=== PATIENT | female | born 1940 | race Caucasian/White ===

== ENCOUNTER 2017-01-29 11:32 | Inpatient (IN) | payer OTHER ==
[~2017-01-29] VITALS: Ht 154.9 cm; Wt 45.4 kg
--- NOTE | 2017-01-29 11:38 | NUR ---
PER FAMILY SOB AND WEAK, PER FAMILY PER PMD BETTER TO COME TO ED DENIES CO SOB AT REST IN TRIAGE PER SON "FLUID AROUND HEART"
--- NOTE | 2017-01-29 11:51 | ED DYSPNEA/ASTHMA COMPLAINT ---
See Addendum History of Present Illness General Chief Complaint: Dyspnea (COPD, CHF, Other) Stated Complaint: SOB,WEAKNESS Source: patient, old records Exam Limitations: no limitations Vital Signs & Intake/Output Vital Signs & Intake/Output Vital Signs Date Time Temp Pulse Resp B/P B/P Pulse O2 O2 Flow FiO2 Mean Ox Delivery Rate 01/29 1404 98.2 100 20 138/72 97 Nasal 2.5L Cannula 01/29 1309 98 Room Air 01/29 1238 89 01/29 1140 98.4 113 26 104/59 90 Room Air Allergies Coded Allergies: shellfish derived (Intermediate, SWELLING 01/29/17) Sulfa (Sulfonamide Antibiotics) (HIVES 01/29/17) iodamide (UNKNOWN 01/29/17) Reconcile Medications Amlodipine Besylate 2.5 MG TABLET 1 TAB PO 1700 CIRCULATION (Reported) Triage Note: PER FAMILY SOB AND WEAK, PER FAMILY PER PMD BETTER TO COME TO ED DENIES CO SOB AT REST IN TRIAGE Triage Nurses Notes Reviewed? yes Onset: Gradual Duration: week(s): (1), constant Timing: recent history Severity: mild, moderate Activities at Onset: activity Associated Symptoms: cough, weakness HPI: 76-year-old female with history of pulmonary fibrosis dementia presents to ER for evaluation with her family complaining of briskly worsening shortness of breath and weakness for the past one week. She is not use oxygen at home and her son who lives with her states this is new. The patient offers no complaints she has a history of dementia however no change in her mental status per family no fever no chills no leg swelling. No modifying factors or associated symptoms otherwise. (LYSSA VORA) Past History Travel History Traveled to [place] past 21 day No Medical History Any Pertinent Medical History? see below for history Neurological: dementia EENT: NONE Cardiovascular: NONE Respiratory: NONE Gastrointestinal: NONE Hepatic: NONE Renal: NONE Musculoskeletal: NONE Psychiatric: NONE Endocrine: NONE History of MRSA: No History of VRE: No History of CDIFF: No Pneumonia Vaccine: 06/13/12 Surgical History Surgical History: non-contributory Psychosocial History Who do you live with Patient/Self Services at Home None What is your primary language Colombian Tobacco Use: Never used Family History Hx Contributory? No (LYSSA VORA) Review of Systems Review of Systems Constitutional: Reports: see HPI. All Other Systems: Reviewed and Negative Comments Review of systems: See HPI, All other systems negative. Constitutional, no chills no fever, no malaise HEENT: No visual changes no sore throat no congestion, Cardiovascular: No chest pain , no palpitation , no orthopnea Skin: no rashes, no change in skin Respiratory: dyspnea no cough no sputum no hemoptysis GI: No nausea no vomiting, no diarrhea, no bloating/constipation : No dysuria Muscle skeletal: No joint pain, no joint swelling, no back pain, no neck pain, Neurologic: No numbness no headache Psych: No stress Heme/endocrine: No bruising no bleeding Immunology: No lymphadenopathy (LYSSA VORA) Physical Exam Physical Exam General Appearance: well developed/nourished, alert, awake Respiratory: rhonchi Comments: Well-developed well-nourished person in no acute distress HEENT: Normal EENT exam; PERRL, EOMI, HEAD is atraumatic. moist mucous membranes. Neck: Supple, no lymphadenopathy, normal range of motion without pain or tenderness Back: Nontender, no CVA tenderness. Full range of motion Cardiovascular: Regular rate and rhythms no murmurs rubs Respiratory: Chest nontender.There were no bony deformities, no asymmetry. No respiratory distress. Patient speaking in full complete sentences. Lung sounds are rhonchorous wheezing Abdomen: Soft, nontender nondistended, no appreciable organomegaly. Normal bowel sounds. No rebound/guarding, No appreciable enlargement of the abdominal aorta, No ascites. Extremity: No edema, full range of motion of extremities Neuro: Alert oriented x2 baseline per son, motor sensory normal, There were no obvious focal neurologic abnormalities. Skin: No appreciable rash on exposed skin, skin is warm and dry. Psych: Mood and affect is normal, memory and judgment is normal. Core Measures ACS in differential dx? Yes Severe Sepsis Present: No Septic Shock Present: No (LYSSA VORA) Progress Differential Diagnosis: asthma, AMI, bronchitis, costochondritis, CHF, COPD, musculoskeletal pain, pericarditis, pulmonary embolism, pneumonia, pneumothorax, unstable angina Plan of Care: Orders Procedure Date/time Status Heart Healthy Diet 01/30 B Active Heart Healthy Diet 01/29 D Complete Pathway - chart 01/29 153 Active House Staff 01/29 153 Active Patient Data 01/29 153 Active Code Status 01/29 1533 Active Admit to inpatient 01/29 1459 Active ECHOCARDIOGRAM 01/29 1457 Active Hartmann, Insertion/Removal/Asses 01/29 1435 Active CULTURE,URINE 01/29 1435 Active SWALLOW EVALUATION 01/29 1418 Active Patient Data 01/29 1402 Active Patient Data 01/29 1401 Active Intake & Output 01/29 1309 Active Telemetry/Test Grader 01/29 1150 Active TROPONIN LEVEL 01/29 1150 Complete PARTIAL THROMBOPLASTIN TIME 01/29 1150 Complete PROTHROMBIN TIME 01/29 1150 Complete COMPREHENSIVE METABOLIC PANEL 01/29 1150 Complete CBC WITHOUT DIFFERENTIAL 01/29 1150 Complete B-TYPE NATRIURETIC PEP (BNP) 01/29 1150 Complete EKG 01/29 1133 Active SWALLOW EVALUATION 01/29 UNK Active Evaluate Swallowing 01/29 UNK Complete PT Evaluate & Treat 01/29 UNK Active Occupational Tx Eval & Treat 01/29 UNK Active VTE Mechanical Prophylaxis 01/29 UNK Active Telemetry/Test Grader 01/29 UNK Active Current Medications Sig/Vanessa Start time Last Medication Dose Stop Time Status Admin Amlodipine Besylate 2.5 MG 1700 01/29 1700 AC (Norvasc) Acetaminophen 650 MG Q6P PRN 01/29 1545 AC (Tylenol) Ibuprofen 600 MG Q6P PRN 01/29 1545 AC (Motrin) Oxycodone/ 2 TAB Q6P PRN 01/29 1545 AC Acetaminophen (Percocet) Enoxaparin Sodium 40 MG DAILY@1500 01/29 1531 AC (Lovenox) Laboratory Tests 01/29/17 1234: Anion Gap 11, Estimated GFR > 60, BUN/Creatinine Ratio 27.8 H, Glucose 167 H, Calcium 8.1 L, Total Bilirubin 1.2, AST 36, ALT 39, Alkaline Phosphatase 66, Troponin I 0.05, Tpa-S-Vqyvyyqgxin Pept 3330 H, Total Protein 5.7 L, Albumin 2.9 L, Globulin 2.8, Albumin/Globulin Ratio 1.0 L, PT 11.7, INR 1.12, APTT 28, CBC w Diff MAN DIFF ORDERED, RBC 2.88 L, MCV 114.3 H, MCH 40.3 H, RDW 18.0 H , MPV 9.8, Gran % 91.3 H, Lymphocytes % 6.4 L, Monocytes % 1.8, Eosinophils % 0.5, Basophils % 0 L, Absolute Granulocytes 13.3 H, Segmented Neutrophils 58, Band Neutrophils 15 H, Absolute Lymphocytes 0.9 L, Lymphocytes 11 L, Monocytes 2, Absolute Monocytes 0.3, Eosinophils 2, Absolute Eosinophils 0.1, Absolute Basophils 0, Metamyelocytes 6 H, Myelocytes 6 H, Nucleated RBCs 3 H, Platelet Estimate ADEQUATE, Polychromasia 1+, Poikilocytosis 2+, Anisocytosis 1+ , Macrocytic Cells 2+, PUBS MCHC 35.2 Microbiology 01/29 1435 URINE ROUT: Urine Culture - ORD DuoNeb CAT scan ordered old records reviewed including x-ray from01/27 IMPRESSION: Chronic, severe interstitial lung disease appears worse compared to 03/16/2013. It is difficult to exclude interstitial edema superimposed on the chronic disease. However, there is no pleural effusion. Since there are more prominent reticulonodular opacities in both lungs, consider chest CT to further evaluate the lung parenchyma and airways. If patient has cough and fever, then findings could represent infectious bronchitis/bronchiolitis superimposed on chronic interstitial disease. (NAILA BYRD,LYSSA) Diagnostic Imaging: Viewed by Me: CT Scan. Discussed w/RAD: CT Scan. Radiology Impression: PATIENT: MARIA ELENA NG PRESENT AGE: 76 PATIENT ACCOUNT NO: [id number] : 38 LOCATION: [facility] ORDERING PHYSICIAN: LYSSA BYRD SERVICE DATE: 01/29/17-122 EXAM TYPE: CAT - CT CHEST WO IV CONTRAST EXAMINATION: CT CHEST WITHOUT CONTRAST CLINICAL INFORMATION: Dyspnea. Pneumonia. COMPARISON: January 27, 2017. TECHNIQUE: Contiguous axial thin section helical images of the chest were performed without contrast. The data set was reformatted in the coronal and sagittal planes and reviewed on an independent workstation. DLP: 154 mGy-cm. FINDINGS: The heart is of normal size. There is no pericardial effusion. There is neither mediastinal, hilar nor axillary lymphadenopathy. There are no chest wall masses. Review of lung windows demonstrates that there are neither pleural effusions nor pneumothoraces. There is diffuse interlobular septal thickening. There is mild lower lobe air trapping. There are no pulmonary parenchymal nodules. Images of the upper abdomen demonstrate that the liver is of normal size and attenuation without focal lesions. Normal adrenal glands are identified. Bone windows: Neither sclerotic nor lytic bone lesions are identified. There is a T12 compression fracture. This is age indeterminant, but likely chronic. IMPRESSION: Interlobular septal thickening. This is likely partially chronic, though I suspect a component of vascular congestion. No consolidations. DICTATED BY: MARIO MILLAN MD DATE/TIME DICTATED:01/29/171403 BODY FORMER:[place] DATE/TIME TRANSCRIBED:01/29/171403 CONFIDENTIAL, DO NOT COPY WITHOUT APPROPRIATE AUTHORIZATION. <Electronically signed in Other Vendor System> SIGNED BY: MARIO MILLAN MD 01/29/17 1412 Initial ED EKG: STACH AT 100, PACS, LAD, PROMINENT T WAVES, NO ACUTE ST SEG CHANGES Prior EKG: unchanged (03/2013) (LYSSA VORA) Departure Departure Time of Disposition: 1422 Disposition: STILL A PATIENT Condition: Stable Clinical Impression Primary Impression: CHF exacerbation Referrals: MARCELL HYMAN MD (PCP/Family) Departure Forms: Customer Survey General Discharge Information Admission Note Spoke With: JUSTO ROCHA MD Documentation of Exam: Documentation of any treatments & extenuating circumstances including Concerns Regarding Discharge (functional status, medication knowledge or non-compliance, living conditions, etc.) that warrant an admission rather than observation: iv diuresis, cardio pulm consult, premature discharge would be medically harmful (LYSSA VORA) PA/STAFF COMBAT INFORMATION CENTER OFFICER Co-Sign Statement Statement: ED Attending supervision documentation- [X] I saw and evaluated the patient. I have also reviewed all the pertinent lab results and diagnostic results. I agree with the findings and the plan of care as documented in the PA's/STAFF COMBAT INFORMATION CENTER OFFICER's documentation. [] I have reviewed the ED Record and agree with the PA's/STAFF COMBAT INFORMATION CENTER OFFICER's documentation. [] Additions or exceptions (if any) to the PAs/STAFF COMBAT INFORMATION CENTER OFFICER's note and plan are summarized below: [] (NICOLE MCRAE,TIM [place]) Critical Care Note Critical Care Note Critical Care Time: non-applicable (LYSSA VORA)
--- NOTE | 2017-01-29 12:12 | NUR ---
PT INCONT OF STOOL, BARRY CARE PROVIDED AND BRIEF REMOVED, PT APPEARS TO HAVE A RASH ACROSS LOWER BACK AND BOTH BUTTOCKS, PER FAMILY SHE HAS BEEN WORKED UP FOR SAME RASH AND WAS RECENTLY ON A PREDNISON TAPER, FAMILY STATING MD BELIEVES THE RASH IS AUTOIMMUNE IN NATURE.
[2017-01-29 12:44] LABS: ABSOLUTE BASOPHIL COUNT 0 /CUMM (0.0-0.2); ABSOLUTE EOSINOPHIL COUNT 0.1 /CUMM (0.0-0.7); ABSOLUTE GRANULOCYTE CT 13.3 /CUMM (1.4-6.5); ABSOLUTE LYMPH COUNT 0.9 /CUMM (1.2-3.4); ABSOLUTE MONOCYTE COUNT 0.3 /CUMM (0.10-0.60); BASOPHIL % 0 % (0.0-2.0); EOSINOPHIL % 0.5 % (0-5); GRANULOCYTE % 91.3 % (42.2-75.2); HEMATOCRIT 32.9 % (37-47); MEAN CORPUSCULAR HGB 40.3 PG (27.0-31.0); MEAN CORPUSCULAR HGB CONC 35.2 G/DL (33.0-37.0); MEAN CORPUSCULAR VOLUME 114.3 FL (81.0-99.0); MEAN PLATELET VOLUME 9.8 FL (7.4-10.4); PLATELET COUNT 200 /CUMM (130-400); RED BLOOD CELL CT 2.88 /CUMM (4.20-5.40); WHITE BLOOD CELL COUNT 14.6 /CUMM (4.8-10.8)
--- NOTE | 2017-01-29 12:51 | NUR ---
RT AT BEDSIDE FOR TREATMENT, IV ESTABLISHED, PT RESTING COMFORTABLY, DENIES ANY NEEDS AT THIS TIME, PLACED ON CARDIAC, 02 AND CYCLING BP CUFF
[2017-01-29 12:54] LABS: PT 11.7 SEC (9.4-12.5); PTT 28 SEC (25-37)
[2017-01-29] MEDS ORDERED: AMLODIPINE BES2.5 M1 PO (13:00)
--- NOTE | 2017-01-29 13:11 | NUR ---
PT TO CT AT THIS TIME
--- NOTE | 2017-01-29 13:52 | NUR ---
LASIX HELD DUE TO SULFA ALLERGY
--- NOTE | 2017-01-29 13:57 | NUR ---
DR ALCARAZ TO BEDSIDE TO JESSICA, PT ATTEMPTED TO VOID ON BEDPAN WITH NO SUCCESS, CLEAN AND DRY LINENS PLACED UNDER PATIENT AND BARRY CARE PROVIDED.
--- NOTE | 2017-01-29 14:01 | History & Physical ---
VASU MCRAE,SIRI 01/29/17 1400: General Information and HPI History of Present Illness: 76 year-old female with a PMH significant for HTN, ILD, RA not on chronic prednisone, and dementia who presents with progressively worsening shortness of breath for the past week. Per the family at bedside, patient never complains of anything but she was noted to have difficulty breathing. Patient was seen by her PCP Dr. Hyman 2 days ago at which point CXR and BNP were checked. Today the son noticed that the patient's breathing looks worse today and BNP came back elevated over 3000 with a concerning CTX per Dr. Hyman. The son chris brought her into ED for further evaluation. Patient used to see a communications equipment supervisor Dr. Delgado when she was young for ACS workup but not since then. Currntly she does not see any physicians besides Dr. Hyman. Patient lives at home with her son and [id number]. She uses a walker to ambulate. Denies any substance/EtOH use. On ROS patient has no chest pain, cough, palpitations, n/v/c/d. The family thinks that patient may have some abdominal pain which patient denies at the time of interview. DNR/DNI. Allergies/Medications Allergies: Coded Allergies: shellfish derived (Intermediate, SWELLING 01/29/17) Sulfa (Sulfonamide Antibiotics) (HIVES 01/29/17) iodamide (UNKNOWN 01/29/17) Home Med list Amlodipine Besylate 2.5 MG TABLET 1 TAB PO 1700 CIRCULATION (Reported) Past History Travel History Traveled to [place] past 21 day No Medical History Neurological: dementia EENT: NONE Cardiovascular: NONE Respiratory: NONE Gastrointestinal: NONE Hepatic: NONE Renal: NONE Musculoskeletal: NONE Psychiatric: NONE Endocrine: NONE History of MRSA: No History of VRE: No History of CDIFF: No Pneumonia Vaccine: 06/13/12 Surgical History Surgical History: non-contributory Past Family/Social History Psychosocial History Where do you live? Home Who Do You Live With? child Services at Home: None Review of Systems Review of Systems Constitutional: Reports: see HPI. Exam & Diagnostic Data Last 24 Hrs of Vital Signs/I&O Vital Signs Date Time Temp Pulse Resp B/P B/P Pulse O2 O2 Flow FiO2 Mean Ox Delivery Rate 01/29 1404 98.2 100 20 138/72 97 Nasal 2.5L Cannula 01/29 1309 98 Room Air 01/29 1238 89 01/29 1140 98.4 113 26 104/59 90 Room Air Intake & Output 01/29 1600 01/29 0800 01/29 0000 Intake Total 45 Output Total Balance 45 Intake, Oral 45 Patient 45.359 kg Weight Physical Exam General Appearance Alert, Cooperative, No Acute Distress Skin rash in the back Skin Temp/Moisture Exam: Warm/Dry Sepsis Skin Exam (color): Normal for Ethnicity HEENT Atraumatic, PERRLA, EOMI, Dry mucous membrane Neck Supple, No JVD Cardiovascular Regular Rate, Normal S1, Normal S2, Systolic murmur at aortic Lungs Diffuse rhonchi Abdomen Normal Bowel Sounds, Soft, No Tenderness Neurological Normal Tone, Sensation Intact, Cranial Nerves 3-12 NL Extremities No Clubbing, No Cyanosis, No Edema, Normal Pulses, No Tenderness/ Swelling Vascular Normal Pulses, Pulses Symmetrical Last 24 Hrs of Labs/Carlos: Laboratory Tests 01/29/17 1234: Anion Gap 11, Estimated GFR > 60, BUN/Creatinine Ratio 27.8 H, Glucose 167 H, Calcium 8.1 L, Total Bilirubin 1.2, AST 36, ALT 39, Alkaline Phosphatase 66, Troponin I 0.05, Vmg-G-Lhhwaxdqyhn Pept 3330 H, Total Protein 5.7 L, Albumin 2.9 L, Globulin 2.8, Albumin/Globulin Ratio 1.0 L, PT 11.7, INR 1.12, APTT 28, CBC w Diff MAN DIFF ORDERED, RBC 2.88 L, MCV 114.3 H, MCH 40.3 H, RDW 18.0 H , MPV 9.8, Gran % 91.3 H, Lymphocytes % 6.4 L, Monocytes % 1.8, Eosinophils % 0.5, Basophils % 0 L, Absolute Granulocytes 13.3 H, Segmented Neutrophils 58, Band Neutrophils 15 H, Absolute Lymphocytes 0.9 L, Lymphocytes 11 L, Monocytes 2, Absolute Monocytes 0.3, Eosinophils 2, Absolute Eosinophils 0.1, Absolute Basophils 0, Metamyelocytes 6 H, Myelocytes 6 H, Nucleated RBCs 3 H, Platelet Estimate ADEQUATE, Polychromasia 1+, Poikilocytosis 2+, Anisocytosis 1+ , Macrocytic Cells 2+, PUBS MCHC 35.2 Microbiology 01/29 1435 URINE ROUT: Urine Culture - ORD Assessment/Plan Assessment: 76 year-old female with a PMH significant for HTN, ILD, RA not on chronic prednisone, dementia and questionable sarcoidosis who presents with progressively worsening shortness of breath for the past week concerning for new onset CHF vs. ILD. # Acute hypoxic resp failure Patient desatting in high 80s upon admission, requiring oxygen supplement. Most likely 2/2 new onset CHF vs. worsening interstitial lung disease. Patient received one dose of IV Lasix 40mg in ED. * Admit to telemetery unit for close monitoring * Vitals per protocol * TRC neb tx and oxygen support as needed * Rule out ACS with serial trop/EKGs * Appreciate cardiology and pulmonlogy input * Follow CT chest - vascular congestion, no signs of pleural effusion/ consolidations. * Echocardiogram * Daily weights with strict I/Os * Lasix 20mg IV daily # Leukocytosis Most likely 2/2 recent steroid use for RA. No other signs of SIRS. * CBC daily, trend WBC * Monitor for signs of infection # HTN * Cont home dose of Norvasc # Chronic dysphagia * Swallow eval * NPO for now - NPO pending swallow eval - DVTppx with Lovenox - Mild pain pathway - DNR/I. As Ranked By This Provider Problem List: 1. Benign hypertension 2. Dementia 3. Rheumatoid arthritis 4. CHF exacerbation Core Measures/Miscellaneous Acute Coronary Syndrome ACS Diagnosis: No Cerebrovascular Accident CVA/TIA Diagnosis: No Congestive Heart Failure CHF Diagnosis: No Venous Thromboembolism VTE Risk Factors: Age > [address] [facility] prophylaxis d/t: No contraindications No VTE Pharm Prophylaxis d/t: No contraindications VTE Diagnosis: No VTE Type: NONE VTE Confirmed by (Test): NONE Severe Sepsis Severe Sepsis Present: No Septic Shock Septic Shock Present: No Miscellaneous Documentation Attending Case Discussed With: Dr. 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 The patient is demented at baseline and most of the history is taken from the family, son and mzfpxidh-vz-[id number] were present syndrome at time of admission. According to her son patient had chronic rash on her body especially on her back and was seen dermatology and was prescribed long tapering course of prednisone. She finished her prednisone on Wednesday. Family noticed that she is getting more lethargic, weak and short of breath for last week but is getting worse for last 1-2 days. There is no history of recent fever, chills, weight loss, sick contact, cough, vomiting, diarrhea or constipation. Patient had some problem with swallowing and preferred to take soft diet. She has slight orthopnea and uses a one large pillow to sleep. She was not seen by a communications equipment supervisor, dewer or pharmacy order entry technician recently. Uses walker at home to walk and also she had nursing aid. Vital signs on admission were temperature 98.4, pulse 113, respiratory rate 26, blood pressure 104 with 59 and she was saturating 90% on room air. Initial labs were WBC count 14.6, hemoglobin 11.6, hematocrit 32.9, platelet count 200, sodium 135, potassium 3.7, BUNs 25, creatinine 0.9, troponins negative. ProBNP 3330 CT chest was done that showed interlobular septal thickening likely partially chronic though there was some complement of posterior congestion. On physical examination Alert and oriented 3 Neck supple Head atraumatic Chest bilateral basal crackles Heart S1-S2 normal with loud systolic murmur Abdomen soft with no organomegaly Bilateral lower extremity edema No neurological deficit noted Assessment and plan Patient is 76-year-old female with past medical history significant for rheumatoid arthritis, chronic autoimmune SKIN disease, hypertension and sarcoidosis came with worsening weakness and shortness of breath. On CAT scan mild was the congestion was noted and component of CHF is considered Problem list 1. Worsening shortness of breath could be multifactorial including her chronic interstitial lung disease/sarcoidosis and new onset congestive heart failure 2. History of rheumatoid arthritis 3. History of hypertension 4. History of dementia and 5. History of dysphagia Plan We'll admit patient on telemetry floor Cardiology consultation with Dr. Chen is placed Echocardiogram Patient was given 40 mg of Lasix in ED and we will wait for Dr. Chen come in for further diurese as patient has loud systolic murmur most likely due to aortic stenosis. A pulmonology consultation We will continue her home dose of amlodipine Speech and swallow evaluation OT/PT Heart healthy diet Patient is DNI DNR Pharmacological DVT prophylaxis MARIO CORLEY MD 01/29/17 2008: Attending MD Review Statement Attending Statement Attending MD Statement: examined this patient, discuss w/resident/PA/SDET, agreed w/resident/PA/SDET, discussed with family, reviewed EMR data (avail), reviewed images, amended to note Attending Assessment/Plan: The patient is a 76 yo female with h/o HTN, dementia, ?ILD (interstitial lung disease), ?RA, and "sarcoid" in distant past who presents in the ED after being referred by PCP (Dr. Hyman) with bloodwork done as OP showing significantly elevated BNP and CXR with increased interstitial edema. She has complained of several weeks of increased dyspnea. She denies any cough, fever, chest pain, palpitations. Has had some mild LE edema (not at present) and does describe some mild orthopnea. She was taking Amlodipine and was also recently treated with Prednisone. She did have a prior cardiac evaluation many years ago by Dr. Delgado. States she has seen Dr. Hyman twice. Physical Exam: VS: T 98.4, P 113, R 20-26, BP 104/59-138/72, PO 89-90% on RA, 97-98% on 2L HEENT: eyes- PERRLA, EOMI shelia- dry mucosa Neck: no JVD, radiating systolic murm, however no definite bruit Chest: diminished BS with fine rhonchi throughout Cor: tachy, nl S1, S2 + IV/ sys mum LSB radiating to neck Abd: BS+,soft, NT, - HSM Ext: no significant edema, pulses 1+; + joint deformities hands/feet (?RA) Neuro: alert and oriented x 3, poor historian (family giving history), no focal deficits- motor/sensory and DTRs intact (gait not tested). Labs/Tests- as above Impression/Plan: #Subacute Dyspnea with hypoxemia (po 89-90% RA)- history unclear, however patient has had several week history of increasing dyspnea. Suspect this is multifactorial with some component of CHF along with ILD. Plan: Nasal oxygen and close respiratory monitoring. Admit to telemetry. #Suspected CHF- Based on elevated BNP levels x 2 (has increased since OP bloodwork). The patient was given IV Furosemide in ED. Has no ischemic symptoms or EKG changes and troponin negative. Possible etiologies include cardiomyopathy. Concern regarding loud systolic murmur and must consider severe . Would be concerned about lowering pre-load too much with diuresis. Plan: Cardiology consult = Dr. Chen. Need ECHO JAMIR. Follow daily weights and I/O's. Hold on further Furosemide pending cardiology input. #ILD- the patient carries this diagnosis and based on CT suspect there is a component of this. Pcsgzfov-gx-rrk states she was told sarcoid in past. With h/o RA rheumatoid lung also a possibility. Spoke with Dr. Jordan who deferred consult pending cardiac evaluation. Has been on steroids recently as per family. Plan: Await Cardiology input, however most likely will need pulmonary input. Suspect component of exacerbation of interstitial lung disease and may benefit from steroids. #H/O Essential HTN- as per family has been on Amlodipine. BP was initially very low. Plan: Monitor BP and will Rx if BP increased. Just received Furosemide and will need to monitor. #Leukocytosis- ? may be secondary to stress. No fever. Doubt pneumonia. Plan: Will culture and observe. Follow-up WBC. #Hyponatremia- mild. ? secondary to CHF. Plan: Will follow. Would check urine lytes/osms if urinalysis was obtained prior to furosemide. #Rheumatoid Arthritis- has been on steroids. Unclear prior workup. Plan: Will need to contact PCP for information. DNR/DNI status. Would obtain PT consult assuming troponins negative.
--- NOTE | 2017-01-29 14:12 | CT SCAN REPORT ---
EXAMINATION: CT CHEST WITHOUT CONTRAST CLINICAL INFORMATION: Dyspnea. Pneumonia. COMPARISON: January 27, 2017. TECHNIQUE: Contiguous axial thin section helical images of the chest were performed without contrast. The data set was reformatted in the coronal and sagittal planes and reviewed on an independent workstation. DLP: 154 mGy-cm. FINDINGS: The heart is of normal size. There is no pericardial effusion. There is neither mediastinal, hilar nor axillary lymphadenopathy. There are no chest wall masses. Review of lung windows demonstrates that there are neither pleural effusions nor pneumothoraces. There is diffuse interlobular septal thickening. There is mild lower lobe air trapping. There are no pulmonary parenchymal nodules. Images of the upper abdomen demonstrate that the liver is of normal size and attenuation without focal lesions. Normal adrenal glands are identified. Bone windows: Neither sclerotic nor lytic bone lesions are identified. There is a T12 compression fracture. This is age indeterminant, but likely chronic. IMPRESSION: Interlobular septal thickening. This is likely partially chronic, though I suspect a component of vascular congestion. No consolidations.
--- NOTE | 2017-01-29 14:13 | NUR ---
HOUSE STAFF AT BEDSIDE FOR EVAL.
--- NOTE | 2017-01-29 14:53 | NUR ---
RIVERA PLACED, SPEECH THERAPY AT BEDSIDE FOR SWALLOW EVAL.
--- NOTE | 2017-01-29 17:11 | NUR ---
PT TO ROOM 174 BED 1
--- NOTE | 2017-01-29 18:00 | NUR ---
LAB DRAWN FOR REPEAT TROP (SST) AND SENT
--- NOTE | 2017-01-29 18:09 | NUR ---
URINE KONG TOP SENT FOR CULTURE
--- NOTE | 2017-01-29 18:20 | NUR ---
EKG ATTEMPTED PT WILL NOT SIT STILL NOTIFIED MELVIN LEONE TO PAGE DR FOR ?MED ORDER
--- NOTE | 2017-01-29 18:30 | NUR ---
PT MEDICATED WITH LOVENOX 40MG RIGHT ARM AND NORVASC 2.5MG
--- NOTE | 2017-01-29 19:33 | Event Note ---
Event Note Event Note: Upon interview with the patient's family by Dr. Gibbs, history reveals that patient has been taking prednisone taper daily for at least one month. Most recent dose was 10mg daily which was stopped this past Wednesday (01/27) due to miscommunication. In the light of patient's tachycardia, hypotension, and anxiety, we will need to consider the possibility of adrenal sufficiency. As such random corsitol level, Mg, Phosphorus were ordered. Norvasc is held. Patient will be started back on prednisone 10mg PO daily for now.
[2017-01-29 19:40] VITALS: BP 98/64
--- NOTE | 2017-01-29 20:09 | Admission Certification ---
Admission Certification Certification Statement - As attending physician, I certify that at the time of - admission, based on clinical presentation, severity of - symptoms, need for further diagnostic testing and - therapeutic interventions, and risk of adverse outcomes - without in-hospital treatment, in my clinical assessment, - this patient requires an acute hospital stay for a minimum - of two nights or longer. I have also considered psychsocial - factors such as support system, advanced age, financial - issues, cognitive issues, and failed out-patient treatments, - past re-admission history, safety of patient, and lack of - compliance as applicable. Specific rationale supporting this admission is: The patient presents with several weeks of increased dyspnea. CXR done as OP shows interstitial edema/disease and BNP is elevated. Suspect both CHF and interstitial lung disease. Has RA and loud systolic murm. Needs telemetry admit with Cardiology and Pulmonary evaluations. ECHO, IV Lasix given in ED. Check troponins, etc.
--- NOTE | 2017-01-29 20:39 | Cons- Cardiology ---
General Information and HPI Consulting Request Date of Consult: 01/29/17 Requested By: MARIO ALCARAZ MD Reason for Consult: Progressive shortness of breath and edema. Source of Information: patient, family, old records Exam Limitations: dementia History of Present Illness: Ms. Cecilia Ramos is a 76-year-old female with a history of hypertension, s/p hysterectomy, sarcoidosis, interstitial lung disease, achalasia, rheumatoid arthritis on Methotrexate, a vague history of OR at 32 years, and dementia who presented to the ED with a 1 week history of progressive shortness of breath and lower extremity edema. She was seen by her primary care physician (Roseann Hernandez M.D.) at the family's request on Wednesday (01/26/2017) and was scheduled for a CXR that was performed on 01/27/2017) and revealed chronic, severe interstitial lung disease that appeared worse when compared to previous CXR from 03/16/2013. Allergies/Medications Allergies: Coded Allergies: shellfish derived (Intermediate, SWELLING 01/29/17) Sulfa (Sulfonamide Antibiotics) (HIVES 01/29/17) iodamide (UNKNOWN 01/29/17) Home Med List: Amlodipine Besylate 2.5 MG TABLET 1 TAB PO 1700 CIRCULATION (Reported) Review of Systems Review of Systems: A 14 point system review was obtained and was noncontributory other than as above, except the fact the patient has had a recent rash for which she was placed on steroid therapy. Past History Travel History Traveled to [place] past 21 day No Medical History Neurological: dementia EENT: NONE Cardiovascular: myocardial infarction Respiratory: interstitial lung disease, sarcoidosis Gastrointestinal: achalasia Hepatic: NONE Renal: NONE Musculoskeletal: NONE Psychiatric: NONE Endocrine: NONE Surgical History Surgical History: non-contributory Psychosocial History Where Do You Live? Home Who Do You Live With? child Services at Home: None Exam & Diagnostic Data Vital Signs and I&O Vital Signs Date Time Temp Pulse Resp B/P B/P Pulse O2 O2 Flow FiO2 Mean Ox Delivery Rate 01/29 1940 98.0 93 18 98/64 94 Nasal 4.0L Cannula 01/29 1830 98.7 91 16 115/62 01/29 1823 98.7 91 16 115/62 92 Room Air 01/29 1404 98.2 100 20 138/72 97 Nasal 2.5L Cannula 01/29 1309 98 Room Air 01/29 1238 89 01/29 1140 98.4 113 26 104/59 90 Room Air Intake & Output 01/29 1600 01/29 0800 01/29 0000 01/28 0801/28 0000 Intake Total 45 Output Total Balance 45 Intake, Oral 45 Patient 99 lb 15.99 oz Weight Physical Exam: Well-developed, well-nourished elderly female in no acute distress with nasal oxygen in place. Vital signs: See above. HEENT: Normocephalic, atraumatic, EOMI, moist mucous membranes. Neck: No JVD, no bruits. Lungs: Bibasilar crackles one third of the way up. Heart: Grade 3/6 holosystolic murmur. Abdomen: Soft, nontender, positive bowel sounds. Extremities: 2+ bilateral lower extremity. Labs/Carlos Results: Laboratory Tests 01/29 01/29 1800 1234 Chemistry Sodium (137 - 145 mmol/L) 135 L Potassium (3.5 - 5.1 mmol/L) 3.7 Chloride (98 - 107 mmol/L) 103 Carbon Dioxide (22 - 30 mmol/L) 21 L Anion Gap (5 - 16) 11 BUN (7 - 17 mg/dL) 25 H Creatinine (0.5 - 1.0 mg/dL) 0.9 Estimated GFR (>60 ml/min) > 60 BUN/Creatinine Ratio (7 - 25 %) 27.8 H Glucose (65 - 99 mg/dL) 167 H Calcium (8.4 - 10.2 mg/dL) 8.1 L Phosphorus (2.5 - 4.5 mg/dL) 2.7 Magnesium (1.6 - 2.3 mg/dL) 2.1 Total Bilirubin (0.2 - 1.3 mg/dL) 1.2 AST (14 - 36 U/L) 36 ALT (9 - 52 U/L) 39 Alkaline Phosphatase (<127 U/L) 66 Troponin I (< 0.11 ng/ml) 0.08 0.05 Oln-C-Nwwybwxhaft Pept (<125 pg/mL) 3330 H Total Protein (6.3 - 8.2 g/dL) 5.7 L Albumin (3.5 - 5.0 g/dL) 2.9 L Globulin (1.9 - 4.2 gm/dL) 2.8 Albumin/Globulin Ratio (1.1 - 2.2 %) 1.0 L Cortisol PM Sample (1.7 - 14.1) Pending Coagulation PT (9.4 - 12.5 SEC) 11.7 INR (0.90 - 1.19) 1.12 APTT (25 - 37 SEC) 28 Hematology CBC w Diff MAN DIFF ORDERED WBC (4.8 - 10.8 /CUMM) 14.6 H RBC (4.20 - 5.40 /CUMM) 2.88 L Hgb (12.0 - 16.0 G/DL) 11.6 L Hct (37 - 47 %) 32.9 L MCV (81.0 - 99.0 FL) 114.3 H MCH (27.0 - 31.0 PG) 40.3 H RDW (11.5 - 14.5 %) 18.0 H Plt Count (130 - 400 /CUMM) 200 MPV (7.4 - 10.4 FL) 9.8 Gran % (42.2 - 75.2 %) 91.3 H Lymphocytes % (20.5 - 51.1 %) 6.4 L Monocytes % (1.7 - 9.3 %) 1.8 Eosinophils % (0 - 5 %) 0.5 Basophils % (0.0 - 2.0 %) 0 L Absolute Granulocytes (1.4 - 6.5 /CUMM) 13.3 H Segmented Neutrophils (42.2 - 75.2 %) 58 Band Neutrophils (0.0 - 5.0 %) 15 H Absolute Lymphocytes (1.2 - 3.4 /CUMM) 0.9 L Lymphocytes (20.5 - 51.1 %) 11 L Monocytes (1.7 - 9.3 %) 2 Absolute Monocytes (0.10 - 0.60 /CUMM) 0.3 Eosinophils (0 - 5.0 %) 2 Absolute Eosinophils (0.0 - 0.7 /CUMM) 0.1 Absolute Basophils (0.0 - 0.2 /CUMM) 0 Metamyelocytes (0.0 - 1.0 %) 6 H Myelocytes (0 - 0 %) 6 H Nucleated RBCs (0.0 - 0.0 /100WBC) 3 H Platelet Estimate (ADEQUATE) ADEQUATE Polychromasia 1+ Poikilocytosis 2+ Anisocytosis 1+ Macrocytic Cells 2+ PUBS MCHC (33.0 - 37.0 G/DL) 35.2 Diagnostic Data EKG Results (01/29/2017): Sinus rhythm, left atrial abnormality, LAD, nonspecific IVCD, LVH, consider old ASMI. CXR Results (01/27/2017): Chronic, severe interstitial lung disease appears worse compared to 03/16/2013. It is difficult to exclude interstitial edema superimposed on the chronic disease. However, there is no pleural effusion. Since there are more prominent reticulonodular opacities in both lungs, consider chest CT to further evaluate the lung parenchyma and airways. If patient has cough and fever, then findings could represent infectious bronchitis/bronchiolitis superimposed on chronic interstitial disease. Other Results CT chest (01/29/2017):Interlobular septal thickening. This is likely partially chronic, though I suspect a component of vascular congestion. No consolidations. Assessment/Plan Assessment/Plan [id number] w/ hx HTN, s/p hysterectomy, sarcoidosis, ILD, achalasia, RA, a vague history of OR at 32 years, and dementia who presented to the ED with a 1 week history of progressive shortness of breath, orthopnea, and lower extremity edema w/ physical examination revealing grade 3/6 murmur, bilateral pulmonary rales, edema, and CXR c/w worsening ILD, chest CT c/w partially chronic interlobular septal thickening, as well as, a suspected component of vascular congestion, an an ECG c/w a possible old ASMI, and a markedly elevated NT-PRO BNP (3330). Recommendations: * Telemetry admission, follow-up troponins, follow-up electrocardiograms. * Strict inputs/outputs, daily weights, etc. * She received IV furosemide 40 mg 1 in the ED. Assuming she has a good diuresis overnight would repeat CXR in a.m., along with a basic metabolic panel. * Replete potassium and maintain to maintain at between 4.0-4.5 mEq per liter. * Follow-up magnesium and maintain at or above 2.0 mEq per liter. * Schedule echocardiogram to assess LV size, degree of hypertrophy, systolic/ diastolic function, right ventricular function, degree of , MR, estimated PA pressure, etc. * Pulmonary medicine consultation given history of ILD and sarcoidosis. * DVT prophylaxis. Further recommendations will follow, Thank you. Consult Acknowledgment - Thank you for your consult request.
--- NOTE | 2017-01-29 21:02 | NUR ---
PT ADMITTED FROM ER VIA STRETHCER. ALERT AND CONFUSED AT TIMES. 3 L NC. HI FALL RISK, BED ALARM IN PLACE. NORMAL SINUS ON THE MONITOR. VSS. RASH TO BUTTOCKS. CREAM ORDERED. DENIES PAIN. XANAX AND PREDNISONE GIVEN ORDERED. WILL CONTINUE TO MONITOR.
[2017-01-29 22:17] VITALS: BP 108/68
[2017-01-29 23:00] VITALS: BP 93/58
--- NOTE | 2017-01-30 08:25 | PN- Housestaff ---
SCARLET MCRAE,MARILEE 01/30/17 0824: Subjective Follow-up For: Shortness of breath Subjective: seen and examined at bedside. She reports feeling much better with her breathing compared to yesterday. Status post 40 mg IV furosemide. She denies any increased shortness of breath,chest pain,palpitaion,increased cough,fever,chills ,nausea,vomiting, focal neurological deicits,abdominal pain or dysuria. Review of Systems Constitutional: Reports: see HPI. Objective Last 24 Hrs of Vital Signs/I&O ..EXAM TYPE: RAD - XRY-PORTABLE CHEST XRAY EXAMINATION: XR PORTABLE CHEST CLINICAL INFORMATION: Shortness of breath. COMPARISON: CT chest of 01/29/2017. Chest x-ray of 01/27/2017 and 03/16/2013. TECHNIQUE: Portable semiupright AP view of the chest was obtained. FINDINGS: Multiple cardiac leads and wires overlie the chest. The lungs are hypoexpanded. There is diffuse interstitial prominence. No focal airspace opacities, significant pleural effusions or pneumothorax. The cardiomediastinal silhouette is unchanged with cardiomegaly. IMPRESSION: Low lung volumes. Diffuse interstitial prominence appears to be somewhat improved compared to last chest x-ray of 01/27/2017 suggesting improving interstitial edema superimposed on chronic interstitial lung markings. Cardiomegaly. Physical Exam General Appearance: Alert, Oriented X3, Cooperative Other Physical Findings: General Appearance Alert, Cooperative, No Acute Distress Skin rash in the back Skin Temp/Moisture Exam: Warm/Dry Sepsis Skin Exam (color): Normal for Ethnicity HEENT Atraumatic, PERRLA, EOMI, Dry mucous membrane Neck Supple, No JVD Cardiovascular Regular Rate, Normal S1, Normal S2, Systolic murmur at aortic Lungs: mild rhonci b/l Abdomen Normal Bowel Sounds, Soft, No Tenderness Neurological Normal Tone, Sensation Intact, Cranial Nerves 3-12 NL Extremities No Clubbing, No Cyanosis, No Edema, Normal Pulses, No Tenderness/ Swelling Vascular Normal Pulses, Pulses Symmetrical Last 24 Hrs of Lab/Carlos Results Last 24 Hrs of Labs/Mics: Laboratory Tests 01/30/17 1025: Anion Gap 8, Estimated GFR > 60, BUN/Creatinine Ratio 26.3 H, Magnesium 2.3, CBC w Diff MAN DIFF ORDERED, RBC 3.03 L, MCV 115.8 H, MCH 39.1 H, RDW 17.6 H , MPV 10.4, Gran % 86.8 H, Lymphocytes % 11.2 L, Monocytes % 1.2 L, Eosinophils % 0.6, Basophils % 0.2, Absolute Granulocytes 8.6 H, Segmented Neutrophils 54, Band Neutrophils 17 H, Absolute Lymphocytes 1.1 L, Lymphocytes 14 L, Monocytes 3, Absolute Monocytes 0.1 L, Absolute Eosinophils 0.1, Basophils 1, Absolute Basophils 0, Metamyelocytes 9 H, Myelocytes 2 H, Platelet Estimate VERIFIED BY SMEAR, Polychromasia 1+, Anisocytosis 1+, Macrocytic Cells 2+, PUBS MCHC 33.7 Assessment/Plan Assessment: This is a 76 year-old female with a PMH significant for HTN, ILD, RA not on chronic prednisone, dementia and questionable sarcoidosis who presents with progressively worsening shortness of breath for the past week concerning for new onset CHF vs. ILD. # Acute hypoxic resp failure ILD vs CHF? Still on 3-4L O2. However, clinically no crackles findings and patinet does not appear in repsiratory distress. S/p 40mg IV diuresis with f/u CXR showing some interval improvement. For now, we will conitnue with o2 supplementation and await cardiology reccomendation regarding LASIX. # Leukocytosis Most likely 2/2 recent steroid use for RA. No other signs of SIRS. Today's WBC very sligtly up. * CBC daily, trend WBC * Monitor for signs of infection # HTN * Cont home dose of Norvasc # Chronic dysphagia On chopped diet. Problem List: 1. CHF exacerbation Pain Ratin Pain Location: none Pain Goal: Remain pain free Pain Plan: per pain pathway Tomorrow's Labs & Rationales: BEP CBC JORGE RAMOS MD 01/30/17 1059: Attending MD Review Statement Attending Statement Attending MD Statement: examined this patient, discuss w/resident/PA/SPRUE KNOCKER, agreed w/resident/PA/SPRUE KNOCKER, reviewed EMR data (avail), discussed with nursing, reviewed images Attending Assessment/Plan: Patient is doing okay on 3 L of oxygen. She is a 76-year-old with underlying rheumatoid arthritis was been on methotrexate in the past and is currently on prednisone and has chronic interstitial lung disease. She's been week short of breath with borderline increased O2 requirement and yesterday's noncontrast chest CT showed some mild vascular congestion. Given the high BNP in the vascular congestion she got 1 dose of IV Lasix and will repeat the chest x-ray today as per cardiology's recommendations. She has a loud systolic murmur we are worried about underlying he hasn't had repeat echo is pending. And will follow-up closely as per cardiology.
[2017-01-30 08:29] VITALS: BP 98/56
[2017-01-30 11:33] LABS: ABSOLUTE BASOPHIL COUNT 0 /CUMM (0.0-0.2); ABSOLUTE EOSINOPHIL COUNT 0.1 /CUMM (0.0-0.7); ABSOLUTE GRANULOCYTE CT 8.6 /CUMM (1.4-6.5); ABSOLUTE LYMPH COUNT 1.1 /CUMM (1.2-3.4); ABSOLUTE MONOCYTE COUNT 0.1 /CUMM (0.10-0.60); BASOPHIL % 0.2 % (0.0-2.0); EOSINOPHIL % 0.6 % (0-5); GRANULOCYTE % 86.8 % (42.2-75.2); HEMATOCRIT 35.1 % (37-47); MEAN CORPUSCULAR HGB 39.1 PG (27.0-31.0); MEAN CORPUSCULAR HGB CONC 33.7 G/DL (33.0-37.0); MEAN CORPUSCULAR VOLUME 115.8 FL (81.0-99.0); MEAN PLATELET VOLUME 10.4 FL (7.4-10.4); PLATELET COUNT 191 /CUMM (130-400); RBC DISTRIBUTION WIDTH 17.6 % (11.5-14.5); RED BLOOD CELL CT 3.03 /CUMM (4.20-5.40)
--- NOTE | 2017-01-30 13:19 | RADIOLOGY REPORT ---
EXAMINATION: XR PORTABLE CHEST CLINICAL INFORMATION: Shortness of breath. COMPARISON: CT chest of 01/29/2017. Chest x-ray of 01/27/2017 and 03/16/2013. TECHNIQUE: Portable semiupright AP view of the chest was obtained. FINDINGS: Multiple cardiac leads and wires overlie the chest. The lungs are hypoexpanded. There is diffuse interstitial prominence. No focal airspace opacities, significant pleural effusions or pneumothorax. The cardiomediastinal silhouette is unchanged with cardiomegaly. IMPRESSION: Low lung volumes. Diffuse interstitial prominence appears to be somewhat improved compared to last chest x-ray of 01/27/2017 suggesting improving interstitial edema superimposed on chronic interstitial lung markings. Cardiomegaly.
[2017-01-30 15:24] VITALS: BP 120/70
[2017-01-30 23:57] VITALS: BP 100/54
[2017-01-31 08:36] LABS: ABSOLUTE BASOPHIL COUNT 0 /CUMM (0.0-0.2); ABSOLUTE EOSINOPHIL COUNT 0.1 /CUMM (0.0-0.7); ABSOLUTE GRANULOCYTE CT 9.3 /CUMM (1.4-6.5); ABSOLUTE LYMPH COUNT 1.2 /CUMM (1.2-3.4); ABSOLUTE MONOCYTE COUNT 0.1 /CUMM (0.10-0.60); BASOPHIL % 0.2 % (0.0-2.0); EOSINOPHIL % 1.3 % (0-5); GRANULOCYTE % 86.3 % (42.2-75.2); MEAN CORPUSCULAR HGB 39.9 PG (27.0-31.0); MEAN CORPUSCULAR HGB CONC 34.2 G/DL (33.0-37.0); MEAN CORPUSCULAR VOLUME 116.9 FL (81.0-99.0); MEAN PLATELET VOLUME 10.1 FL (7.4-10.4); PLATELET COUNT 166 /CUMM (130-400); RBC DISTRIBUTION WIDTH 18.5 % (11.5-14.5); RED BLOOD CELL CT 2.66 /CUMM (4.20-5.40); WHITE BLOOD CELL COUNT 10.8 /CUMM (4.8-10.8)
[2017-01-31 08:47] VITALS: BP 102/62
--- NOTE | 2017-01-31 09:03 | PN- Att Addend ---
Attending Addendum Attending Brief Note Patient seen and examined. Overall she feels better but feels tired and weak. On exam she is afebrile, blood pressures 102/62, pulse rate 78 and she is 98% on 3 L. Lungs have decreased breath sounds with scattered rhonchi, heart is S1-S2 with a loud holosystolic murmur, abdomen is soft and she has bilateral 1+ edema. Her labs show a BUN of 21 creatinine of 0.8 and chronic macrocytic anemia with an MCV of 115. She is a 76-year-old with underlying rheumatoid arthritis has been on methotrexate in the past and some form of interstitial lung disease on chronic prednisone. She is here with what appears to be acute hypoxemic respiratory failure and because of the elevated BNP and a chest x-ray showing vascular prominence with CT chest showing again probable interstitial edema, she got a dose of Lasix to which she responded fairly well. Her echo is pending and because of the loud holosystolic murmur we are worried about aortic stenosis and will need to follow that closely. I will defer to cardiology and diurese her anymore unless absolutely necessary if in fact she has aortic stenosis. PT saw her and they're recommending STR. We need to clarify her medication list in a.m. specifically the steroids and methotrexate. Given the degree of macrocytosis I will check a B12 and folate, TSH checked and normal and follow closely.
--- NOTE | 2017-01-31 10:18 | PN- Housestaff ---
Subjective Follow-up For: Acute respiratory failure Tele-Events Since Last Visit: Sinus rhythm, first-degree heart block, heart rate 61 -70s with overnight events Subjective: Afebrile, hemodynamically stable, no acute overnight events reported, patient sitting at bedside looks relaxed and comfortable. She denies any current active complaints. She is saturating upper 90s on 3 L of oxygen. Review of Systems Constitutional: Reports: no symptoms. Objective Last 24 Hrs of Vital Signs/I&O Vital Signs Date Time Temp Pulse Resp B/P B/P Pulse O2 O2 Flow FiO2 Mean Ox Delivery Rate 01/31 0847 97.9 66 20 102/62 98 Nasal 3.0L Cannula 01/31 0800 94 Nasal 3.0L Cannula 01/31 0000 Nasal 3.0L Cannula 01/30 2357 97.1 62 20 100/54 96 Nasal 2.5L Cannula 01/30 1600 95 Nasal 3.0L Cannula 01/30 1524 97.7 85 20 120/70 95 Nasal 3.0L Cannula Intake & Output 01/31 1600 01/31 0800 01/31 0000 Intake Total 60 400 Output Total 300 600 Balance -240 -200 Intake, IV 10 Intake, Oral 50 400 Number 0 Bowel Movements Output, Urine 300 600 Physical Exam General Appearance: Alert, Oriented X3, Cooperative, No Acute Distress HEENT: Atraumatic, PERRLA, EOMI, Mucous Membr. moist/pink Cardiovascular: Regular Rate, Normal S1, Normal S2, systolic murmur Lungs: diminished air entry over lung b/l with some mild rhonchi Abdomen: Soft, No Tenderness Neurological: Normal Speech Extremities: No Clubbing, No Cyanosis, No Edema Current Medications: Current Medications Sig/Vanessa Start time Last Medication Dose Route Stop Time Status Admin Acetaminophen 650 MG Q6P PRN 01/29 1545 AC PO Enoxaparin Sodium 40 MG DAILY@1500 01/29 1531 AC 01/30 SC 1630 Ibuprofen 600 MG Q6P PRN 01/29 1545 AC PO Mupirocin 1 CHRISTINE TID 01/29 2100 01/31 TOP 0956 Oxycodone/ 2 TAB Q6P PRN 01/29 1545 AC Acetaminophen PO Prednisone 10 MG DAILY 01/29 1945 AC 01/31 PO 0956 Zinc Oxide 1 CHRISTINE BID 01/29 2100 AC 01/31 TOP 0956 Last 24 Hrs of Lab/Carlos Results Last 24 Hrs of Labs/Mics: Laboratory Tests 01/31/17 0650: Anion Gap 9, Estimated GFR > 60, BUN/Creatinine Ratio 27.5 H, CBC w Diff MAN DIFF ORDERED, RBC 2.66 L, MCV 116.9 H, MCH 39.9 H, RDW 18.5 H, MPV 10.1, Gran % 86.3 H, Lymphocytes % 11.0 L, Monocytes % 1.2 L, Eosinophils % 1.3, Basophils % 0.2, Absolute Granulocytes 9.3 H, Segmented Neutrophils 52, Band Neutrophils 21 H, Absolute Lymphocytes 1.2, Lymphocytes 13 L, Monocytes 2, Absolute Monocytes 0.1 L, Eosinophils 1, Absolute Eosinophils 0.1, Absolute Basophils 0, Metamyelocytes 9 H, Myelocytes 2 H, Platelet Estimate VERIFIED BY SMEAR, Polychromasia 1+, Anisocytosis 1+, Macrocytic Cells 2+, PUBS MCHC 34.2 Assessment/Plan Assessment: This is a 76 year-old female with a PMH significant for HTN, ILD, RA not on chronic prednisone, dementia and questionable sarcoidosis who presents with progressively worsening shortness of breath for the past week concerning for new onset CHF vs. ILD. # Acute hypoxic resp failure Even though patient had interstitial lung disease and she is on chronic steroid, her shortness breath most likely got exacerbated by congestive heart failure as was seen on x-ray and CT. She still on 3L O2. * Pending echo * We will follow cardiology in regard of Lasix use, as patient has a murmur that can reflect aortic stenosis. # Leukocytosis Most likely 2/2 recent steroid use for RA. No other signs of SIRS. WBCs is back to normal. * NTD # HTN * Cont home dose of Norvasc #Chronic dysphagia * On chopped diet. #Macrocytic anemia Most likely because of need to check state. TSH was normal * We repeat B12 and folic acid PT recommended STIR DNR/DNI Heart healthy chopped DVT prophylaxis with Lovenox and Alps Problem List: 1. CHF exacerbation Pain Ratin Pain Location: na Pain Goal: Remain pain free Pain Plan: See assessment and plan Tomorrow's Labs & Rationales: See assessment and plan
[2017-01-31 15:00] VITALS: BP 102/50
--- NOTE | 2017-01-31 15:20 | PN- Cardiology ---
Subjective Subjective: No complaints. States that she is breathing better. Objective Vital Signs and I&Os Vital Signs Date Time Temp Pulse Resp B/P B/P Pulse O2 O2 Flow FiO2 Mean Ox Delivery Rate 01/31 0847 97.9 66 20 102/62 98 Nasal 3.0L Cannula 01/31 0800 94 Nasal 3.0L Cannula 01/31 0000 Nasal 3.0L Cannula 01/30 2357 97.1 62 20 100/54 96 Nasal 2.5L Cannula 01/30 1600 95 Nasal 3.0L Cannula 01/30 1524 97.7 85 20 120/70 95 Nasal 3.0L Cannula Intake & Output 01/31 1600 01/31 0800 01/31 0000 01/30 1600 01/30 0800 01/30 0000 Intake Total 60 400 480 250 120 Output Total 275 300 960 993 6481 Balance -275 -240 -200 480 -150 -1430 Intake, IV 10 10 Intake, Oral 50 400 480 240 120 Number 0 Bowel Movements Output, Urine 275 300 485 [id number] [id number] Patient 99 lb 15.99 oz Weight Physical Exam: Well-developed, well-nourished elderly female in no acute distress with nasal oxygen in place. Vital signs: See above. HEENT: Normocephalic, atraumatic, EOMI, moist mucous membranes. Neck: No JVD, no bruits. Lungs: Bibasilar crackles one third of the way up. Heart: Grade 2-3/6 systolic murmur. Abdomen: Soft, nontender, positive bowel sounds. Extremities: No edema. Current Medications: Current Medications Sig/Vanessa Start time Last Medication Dose Route Stop Time Status Admin Acetaminophen 650 MG Q6P PRN 01/29 1545 AC PO Enoxaparin Sodium 40 MG DAILY@1500 01/29 1531 01/30 SC 1630 Ibuprofen 600 MG Q6P PRN 01/29 1545 AC PO Mupirocin 1 CHRISTINE TID 01/29 2100 01/31 TOP 0956 Oxycodone/ 2 TAB Q6P PRN 01/29 1545 AC Acetaminophen PO Prednisone 10 MG DAILY 01/29 1945 AC 01/31 PO 0956 Zinc Oxide 1 CHRISTINE BID 01/29 2100 01/31 TOP 0956 Results Last 48 Hrs of Labs/Mics: Laboratory Tests 01/31/17 0650: Anion Gap 9, Estimated GFR > 60, BUN/Creatinine Ratio 27.5 H, Vitamin B12 Pending, Folate Pending, CBC w Diff MAN DIFF ORDERED, RBC 2.66 L, MCV 116.9 H, MCH 39.9 H, RDW 18.5 H, MPV 10.1, Gran % 86.3 H, Lymphocytes % 11.0 L, Monocytes % 1.2 L, Eosinophils % 1.3, Basophils % 0.2, Absolute Granulocytes 9.3 H, Segmented Neutrophils 52, Band Neutrophils 21 H, Absolute Lymphocytes 1.2, Lymphocytes 13 L, Monocytes 2, Absolute Monocytes 0.1 L, Eosinophils 1, Absolute Eosinophils 0.1, Absolute Basophils 0, Metamyelocytes 9 H, Myelocytes 2 H, Platelet Estimate VERIFIED BY SMEAR, Polychromasia 1+, Anisocytosis 1+, Macrocytic Cells 2+, PUBS MCHC 34.2 01/30/17 1025: Anion Gap 8, Estimated GFR > 60, BUN/Creatinine Ratio 26.3 H, Magnesium 2.3, CBC w Diff MAN DIFF ORDERED, RBC 3.03 L, MCV 115.8 H, MCH 39.1 H, RDW 17.6 H , MPV 10.4, Gran % 86.8 H, Lymphocytes % 11.2 L, Monocytes % 1.2 L, Eosinophils % 0.6, Basophils % 0.2, Absolute Granulocytes 8.6 H, Segmented Neutrophils 54, Band Neutrophils 17 H, Absolute Lymphocytes 1.1 L, Lymphocytes 14 L, Monocytes 3, Absolute Monocytes 0.1 L, Absolute Eosinophils 0.1, Basophils 1, Absolute Basophils 0, Metamyelocytes 9 H, Myelocytes 2 H, Platelet Estimate VERIFIED BY SMEAR, Polychromasia 1+, Anisocytosis 1+, Macrocytic Cells 2+, PUBS MCHC 33.7 01/30/17 0020: Troponin I 0.08 01/29/17 1800: Troponin I 0.08 Microbiology 01/29 1812 URINE ROUT: Urine Culture - COMP Recent Imaging Studies: CXR (01/30/2017): Low lung volumes. Diffuse interstitial prominence appears to be somewhat improved compared to last chest x-ray of 01/27/2017 suggesting improving interstitial edema superimposed on chronic interstitial lung markings. Cardiomegaly. Assessment/Plan Assessment/Plan [id number] w/ hx HTN, s/p hysterectomy, sarcoidosis, ILD, achalasia, RA, a vague history of PA at 32 years, and dementia who presented to the ED with a 1 week history of progressive shortness of breath, orthopnea, and lower extremity edema w/ physical examination revealing grade 3/6 murmur, bilateral pulmonary rales, edema, and CXR c/w worsening ILD, chest CT c/w partially chronic interlobular septal thickening, as well as, a suspected component of vascular congestion, an an ECG c/w a possible old ASMI, and a markedly elevated NT-PRO BNP (3330). She has clinically and radiographically improved following diuresis, but continues to have bilateral crackles on chest exam, likely secondary to her interstitial lung disease. Recommendations:. * Continue on telemetry. * Continue to diurese with close follow-up of BUN/creatinine, potassium, magnesium, etc. * Follow-up echocardiogram performed earlier. * Discuss possible role pharmacologic stress testing to help exclude underlying ischemia as a contributing factor to her shortness of breath that improved following diuresis. * Pulmonary medicine consultation for further evaluation/management of her interstitial lung disease/sarcoidosis. * Continue DVT prophylaxis. Continue telemetry? Yes
[2017-01-31 23:55] VITALS: BP 104/50
--- NOTE | 2017-02-01 06:37 | PN- Housestaff ---
VASU MCRAE,JOYCELYN 02/01/17 0636: Subjective Follow-up For: Acute respiratory failure Tele-Events Since Last Visit: NSR with episodes of PAC Subjective: Patient seen and examined at bedside. Remains afebrile and HDS. Resting comfortably in bed with no complaints. She reports breathing is much better compared to last week. Satting well on 3 liters of oxygen. Patient has had no BMs since the admission. No events reported overnight. Review of Systems Constitutional: Reports: see HPI. Objective Last 24 Hrs of Vital Signs/I&O Vital Signs Date Time Temp Pulse Resp B/P B/P Pulse O2 O2 Flow FiO2 Mean Ox Delivery Rate 02/01 0842 98.8 79 20 102/54 93 Nasal 2.0L Cannula 02/01 0000 96 Nasal 2.0L Cannula 01/31 2355 98.0 80 16 104/50 95 Nasal 3.0L Cannula 01/31 1600 Nasal 3.0L Cannula 01/31 1500 98.4 80 16 102/50 94 Nasal 3.0L Cannula Intake & Output 02/01 1600 02/01 0800 02/01 0000 Intake Total 240 200 Output Total 375 Balance -135 200 Intake, Oral 240 200 Output, Urine 375 Physical Exam General Appearance: Alert, Cooperative, No Acute Distress Other Physical Findings: General Appearance Alert, Cooperative, No Acute Distress Skin Rash in the back Skin Temp/Moisture Exam: Warm/Dry Sepsis Skin Exam (color): Normal for Ethnicity HEENT Atraumatic, PERRLA, EOMI, Dry mucous membrane Neck Supple, No JVD Cardiovascular Regular Rate, Normal S1, Normal S2, Systolic murmur at aortic Lungs: Mild rhonci/crackles bilaterally Abdomen Normal Bowel Sounds, Soft, No Tenderness Neurological Normal Tone, Sensation Intact, Cranial Nerves 3-12 NL Extremities No Clubbing, No Cyanosis, No Edema, Normal Pulses, No Tenderness/ Swelling Vascular Normal Pulses, Pulses Symmetrical Current Medications: Current Medications Sig/Vanessa Start time Last Medication Dose Route Stop Time Status Admin Acetaminophen 650 MG Q6P PRN 01/29 1545 AC PO Enoxaparin Sodium 40 MG DAILY@1500 01/29 1531 AC 01/31 SC 1658 Ibuprofen 600 MG Q6P PRN 01/29 1545 AC PO Mupirocin 1 CHRISTINE TID 01/29 2100 AC 01/31 TOP 2220 Oxycodone/ 2 TAB Q6P PRN 01/29 1545 AC Acetaminophen PO Prednisone 10 MG DAILY 01/29 1945 AC 01/31 PO 0956 Senna/Docusate Sodium 1 TAB BID 02/01 1000 AC PO Zinc Oxide 1 CHRISTINE BID 01/29 2100 AC 01/31 TOP 2220 Last 24 Hrs of Lab/Carlos Results Last 24 Hrs of Labs/Mics: Laboratory Tests 02/01/17 0626: CBC w Diff Pending, WBC Pending, RBC Pending, Hgb Pending, Hct Pending, MCV Pending, MCH Pending, RDW Pending, Plt Count Pending, MPV Pending, PUBS MCHC Pending Assessment/Plan Assessment: This is a 76 year-old female with a PMH significant for HTN, ILD, RA not on chronic prednisone, dementia and questionable sarcoidosis who presents with progressively worsening shortness of breath for the past week concerning for new onset CHF vs. ILD. # Acute hypoxic resp failure Even though patient had interstitial lung disease and she is on chronic steroid, her shortness breath most likely got exacerbated by congestive heart failure as was seen on x-ray and CT. * Taper oxygen off * Give on time Lasix 40mg IV * Follow echo - stage 1 diastolic dysfunction. Mild concentric left ventricular hypertrophy. No obvious regional wall motion abnormalities. Normal LV EF at > 65 %. Mildly increased resting left ventricular outflow tract velocity (1.5 m/s). No signifcant valvular abrnormalities. * Appreciate cardio recs, [place]. regarding Lasix use upon discharge # RA with rash exacerbation * Cont prednisone taper (started at home) - currently 10mg QD # HTN * Holding home med Norvasc as patient is borderline hypotensive * Consider starting Lasix PO 20mg QD upon discharge instead # Macrocytic anemia B12 and folate checked and normal. * Check TSH - r/o hypothyrodism #Chronic dysphagia * Cont chopped diet. # Leukocytosis - resolved Most likely 2/2 recent steroid use for RA. No other signs of SIRS. WBCs is back to normal. - PT recommended STIR - DNR/DNI - Heart healthy chopped - DVT prophylaxis with Lovenox and Alps Problem List: 1. GERD 2. Rheumatoid arthritis 3. CHF exacerbation 4. Dementia 5. Benign hypertension Pain Ratin Pain Location: 0 Pain Goal: Remain pain free Pain Plan: Mild pain pathway Tomorrow's Labs & Rationales: BEP to monitor electrolytes and renal function MARIO ALCARAZ MD 02/01/17 1551: Attending MD Review Statement Attending Statement Attending MD Statement: examined this patient, discuss w/resident/PA/SLD EDUCATIONAL AIDE, agreed w/resident/PA/SLD EDUCATIONAL AIDE, discussed with family, reviewed EMR data (avail), discussed with nursing, discussed with case mgmt, reviewed images, amended to note Attending Assessment/Plan: The patient was seen and discussed with house staff. Reviewed CT with Radiology. The patient also had a prior CT abd 2012 with images of lower lung simmons. The images suggest significant interstitial lung disease- ? interstitial pneumonitis vs fibrosis? ECHO shows only mild with grade [address] Will consult Dr. Yuan/pulmonary regarding lung disease. Will need STR and assume OP PFT's, etc.
[2017-02-01 08:32] LABS: ABSOLUTE BASOPHIL COUNT 0 /CUMM (0.0-0.2); ABSOLUTE EOSINOPHIL COUNT 0.2 /CUMM (0.0-0.7); ABSOLUTE GRANULOCYTE CT 8.4 /CUMM (1.4-6.5); ABSOLUTE LYMPH COUNT 1.2 /CUMM (1.2-3.4); ABSOLUTE MONOCYTE COUNT 0.1 /CUMM (0.10-0.60); BASOPHIL % 0.2 % (0.0-2.0); EOSINOPHIL % 1.8 % (0-5); GRANULOCYTE % 84.5 % (42.2-75.2); HEMATOCRIT 31.2 % (37-47); MEAN CORPUSCULAR HGB 39.5 PG (27.0-31.0); MEAN PLATELET VOLUME 10.4 FL (7.4-10.4); PLATELET COUNT 181 /CUMM (130-400); RBC DISTRIBUTION WIDTH 17.6 % (11.5-14.5); RED BLOOD CELL CT 2.69 /CUMM (4.20-5.40); WHITE BLOOD CELL COUNT 9.9 /CUMM (4.8-10.8)
[2017-02-01 08:42] VITALS: BP 102/54
--- NOTE | 2017-02-01 10:06 | PN- Student ---
Subjective Subjective: History and Physical CC- "Shortness of breath" HPI: Ms. Ramos is a 76-year-old female with a past medical history of rheumatoid arthritis, hypertension, dementia and "possible" autoimmune skin condition who was brought in to the ED by family members who noticed she had been having increased shortness of breath for the past 1 week. Her son noted she looked "ill" today with progressively worsening shortness of breath. Patient only sees her PCP Dr. Hernandez; last seen in office 2 days ago where CXR and BNP were checked. Chest xray showed possible interstitial lung disease with possible superimposed edema. BNP recorded today was over 3000. Patient otherwise denies any blurry vision, chest pain, palpitations, fever, headache, nausea, vomiting, diarrhea, numbness or tingling. 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 Lives at an "in-law" apartment attached to her son's house. Denied any tobacco use; admits to drinking beer socially in the past. Allergies: shellfish derived (Intermediate, SWELLING 01/29/17) Sulfa (Sulfonamide Antibiotics) (HIVES 01/29/17) iodamide (UNKNOWN 01/29/17) Medications: Amlodipine Besylate 2.5 MG TABLET 1 TAB PO 1700 CIRCULATION Vitals in ED: Vital Signs Date Time Temp Pulse Resp B/P B/P Pulse O2 O2 Flow FiO2 Mean Ox Delivery Rate 02/01 0842 98.8 79 20 102/54 93 Nasal 2.0L Cannula 02/01 0000 96 Nasal 2.0L Cannula 01/31 2355 98.0 80 16 104/50 95 Nasal 3.0L Cannula 01/31 1600 Nasal 3.0L Cannula 01/31 1500 98.4 80 16 102/50 94 Nasal 3.0L Cannula Physical Exam: General- well-nourished, ill-appearing elderly female in mild distress HEENT- NCAT, PERRL, EOMI Cardio- Normal S1 & S2, aortic stenosis Lungs- Crackles on inspiration, no wheezing Abdomen- soft, non-tender, non-distended abdomen w/ no organomegaly Extremities- no edema/cyanosis/erythema Chest CT w/ no contrast: Interlobular septal thickening. This is likely partially chronic, though I suspect a component of vascular congestion. No consolidations. Assessment/Plan: 76 year-old female with a PMH significant for HTN, dementia, RA not on chronic prednisone who presents with progressively worsening shortness of breath for the past week concerning for new onset CHF vs. ILD. Acute hypoxic respiratory failure Patient desatting in the high 80s upon admission, requiring oxygen supplement. Most likely new onset CHF vs. worsening interstitial lung disease. Patient received one dose of IV Lasix 40mg in ED. -Admit to telemetery for monitoring -Nebulizer tx and oxygen PRN -Serial troponin & EKGs -Cardiology and pulmonlogy consultation -Echocardiogram Hypertension: -Continue home medication Norvasc DVT ppx- Lovenox Code status- DNR/DNI
--- NOTE | 2017-02-01 10:40 | ECHOCARDIOGRAM REPORT ---
MARIA ELENA NG Age: 76 : 1940 Gender: F Exam Date: 01/31/2017 08:31 Exam Location: [place] Ht (in): 61 Wt (lb): 99 BSA: 1.39 BP: 100 / 54 Ordering Physician: JUAN DANIEL PEMBERTON MD Referring Physician: Boo Chen MD Technologist: Dominique Villanueva RUST Room Number: [id number] Indications: HYPERTENSION Rhythm: Sinus Technical Quality: Fair FINDINGS Left Ventricle Small left ventricular cavity. Mild concentric left ventricular hypertrophy. No obvious regional wall motion abnormalities. Normal left ventricular ejection fraction visually estimated at >65%. Abnormal relaxation filling pattern of the left ventricle for age (stage 1 diastolic dysfunction). Mildly increased resting left ventricular outflow tract velocity (1.5 m/s). Right Ventricle Normal right ventricular size and function. Right Atrium Normal right atrial size. Left Atrium Mild left atrial dilatation. Mitral Valve Severe mitral annular calcification. Mitral valve thickened. Systolic anterior motion (CALEB). Mild mitral regurgitation. Mild mitral stenosis. Aortic Valve Trileaflet aortic valve. Diffuse moderate thickening of the aortic valve cusps with reduced excursion. Mild aortic stenosis. Trace to mild aortic regurgitation. Tricuspid Valve Structurally normal tricuspid valve. Trace to mild tricuspid regurgitation. No evidence of pulmonary hypertension. Right ventricular systolic pressure estimated to be within the normal range at 25 mmHg. Pulmonic Valve Pulmonic valve not well visualized, grossly normal. Mild pulmonic regurgitation. Pericardium No pericardial effusion. Great Vessels Normal size aortic root. Mildly dilated proximal ascending aorta (tube). Normal size inferior vena cava. CONCLUSIONS Small left ventricular cavity. Mild concentric left ventricular hypertrophy. No obvious regional wall motion abnormalities. Normal left ventricular ejection fraction visually estimated at > 65%. Abnormal relaxation filling pattern of the left ventricle for age (stage 1 diastolic dysfunction). Mildly increased resting left ventricular outflow tract velocity (1.5 m/s). Normal right ventricular size and function. Normal right atrial size. Mild left atrial dilatation. Systolic anterior motion (CALEB). Mild mitral regurgitation. Mild mitral stenosis. Mild aortic stenosis. Trace to mild aortic regurgitation. Trace to mild tricuspid regurgitation. No evidence of pulmonary hypertension. Mild pulmonic regurgitation. Mildly dilated proximal ascending aorta (tube). Boo Chen M.D. (Electronically Signed) Final Date: 01 Feb 2017 10:39 MEASUREMENTS (Male / Female) Normal Values 2D ECHO LV Diastolic Diameter PLAX 3.8 cm 4.2 - 5.9 / 3.9 - 5.3 cm LV Systolic Diameter PLAX 1.6 cm 2.1 - 4.0 cm LV Fractional Shortening PLAX 57.9 % 25 - 46 % LV Ejection Fraction 2D Teich 88.4 % IVS Diastolic Thickness 1.3 cm LVPW Diastolic Thickness 1.3 cm LV Relative Wall Thickness 0.7 RV Internal Dim ED PLAX 2.1 cm 1.9 - 3.8 cm LVOT Diameter 1.8 cm Aortic Root Diameter 3.1 cm LA Systolic Diameter LX 3.1 cm 3.0 - 4.0 / 2.7 - 3.8 cm LA Volume 45.0 cm 18 - 58 / 22 - 52 cm Ascending Aorta Diameter 3.4 cm DOPPLER AV Peak Velocity 205.0 cm/s AV Peak Gradient 16.8 mmHg AV Mean Velocity 146.0 cm/s AV Mean Gradient 10.0 mmHg AV Velocity Time Integral 44.5 cm LVOT Peak Velocity 152.0 cm/s LVOT Peak Gradient 9.2 mmHg LVOT Mean Velocity 104.0 cm/s LVOT Mean Gradient 5.0 mmHg LVOT Velocity Time Integral 33.1 cm LVOT Stroke Volume 84.2 cm AV Area Cont Eq vti 1.9 cm AV Area Cont Eq pk 1.9 cm MV Peak Velocity 201.0 cm/s MV Peak Gradient 16.2 mmHg MV Mean Velocity 116.0 cm/s MV Mean Gradient 6.0 mmHg Mitral E Point Velocity 127.0 cm/s Mitral A Point Velocity 174.0 cm/s Mitral E to A Ratio 0.7 MV PHT Velocity 140.0 cm/s MV Deceleration [place] 399.0 cm/s MV Pressure Half Time 105.3 ms MV Area PHT 2.1 cm MV Deceleration Time 436.0 ms TR Peak Velocity 225.0 cm/s TR Peak Gradient 20.3 mmHg Right Atrial Pressure 5.0 mmHg Pulmonary Artery Systolic Pressu 25.3 mmHg Right Ventricular Systolic Press 25.3 mmHg PV Peak Velocity 128.0 cm/s PV Peak Gradient 6.6 mmHg PV Mean Velocity 80.5 cm/s PV Mean Gradient 3.0 mmHg PV Velocity Time Integral 27.5 cm LV E' Lateral Velocity 6.1 cm/s Mitral E to LV E' Lateral Ratio 20.7 LV E' Septal Velocity 4.2 cm/s Mitral E to LV E' Septal Ratio 30.3
--- NOTE | 2017-02-01 11:36 | Discharge Summary ---
Visit Information Visit Dates Admission Date: 01/29/17 Discharge Date: 02/03/2017 Hospital Course Course Attending Physician: MARIO ALCARAZ MD Primary Care Physician: MARCELL HYMAN MD Consulting Request: Consulting Specialty: Cardiology Consulting Physician: Boo Chen MD Hospital Course: The patient is a 76 yo female with h/o HTN, dementia, ?ILD (interstitial lung disease), ?RA, and "sarcoid" in distant past who presents in the ED after being referred by PCP (Dr. Hyman) with bloodwork done as OP showing significantly elevated BNP and CXR with increased interstitial edema. Vital signs on admission were temperature 98.4, pulse 113, respiratory rate 26, blood pressure 104 with 59 and she was saturating 90% on room air. Initial labs were WBC count 14.6, hemoglobin 11.6, hematocrit 32.9, platelet count 200, sodium 135, potassium 3.7, BUNs 25, creatinine 0.9, troponins negative. ProBNP 3330 Patient was admitted on telemetric floor and following issues were addressed Problem #1 worsening shortness of breath which is most likely multifactorial with component of congestive heart failure as well as interstitial lung disease. Patient was admitted on telemetry floor and was started on IV diuresis. Cardiology was consulted and echocardiogram was recommended. Patient was progressively doing better after IV diuresis which we gave with very cautioned as we are suspecting patient might have moderate to severe comparison of breath and the guarding. Pulmonology was also consulted but the thought was most likely her worsening shortness of breath is due to acute congestive heart failure and interstitial lung disease . She was seen by blocker and sewer Dr. Yuan and was decided to send patient home on prednisone 10 mg daily. She was instructed to keep head end of bed elevated. And as patient was not a candidate for bronchoscopy or lung biopsy as it was thought that she seems like to have terminal interstitial lung disease. At this time patient should be treated conservatively, prevent acid reflex, prevent recurrent aspiration and low-dose prednisone. Patient was also started on proton pump inhibitor 40 mg once a day. Patient required oxygen 1.5 L and we will send patient on rehabilitation on oxygen to her oxygen saturation more than 90%. Problem #2 leukocytosis Most likely due to CHF exacerbation at the projecting and trended down and remained normal during her hospital stay Problem #3 hypertension Patient was on amlodipine at home which was held during hospital stay because of low blood pressure. Patient was started on 20 mg of Lasix daily Problem #4 history of rheumatoid arthritis She was continued on 10 mg of prednisone Problem #5 subacute dyspnea with hypoxemia She was treated with supplemental oxygen during hospital stay to get oxygen saturation more than 90%. We'll send her on 1-2 L of oxygen Complications: None Allergies: Coded Allergies: shellfish derived (Intermediate, SWELLING 01/29/17) Sulfa (Sulfonamide Antibiotics) (HIVES 01/29/17) iodamide (UNKNOWN 01/29/17) Significant Procedures: SERVICE DATE: 01/29/17 EXAM TYPE: CAT - CT CHEST WO IV CONTRAST EXAMINATION: CT CHEST WITHOUT CONTRAST CLINICAL INFORMATION: Dyspnea. Pneumonia. COMPARISON: January 27, 2017. TECHNIQUE: Contiguous axial thin section helical images of the chest were performed without contrast. The data set was reformatted in the coronal and sagittal planes and reviewed on an independent workstation. DLP: 154 mGy-cm. FINDINGS: The heart is of normal size. There is no pericardial effusion. There is neither mediastinal, hilar nor axillary lymphadenopathy. There are no chest wall masses. Review of lung windows demonstrates that there are neither pleural effusions nor pneumothoraces. There is diffuse interlobular septal thickening. There is mild lower lobe air trapping. There are no pulmonary parenchymal nodules. Images of the upper abdomen demonstrate that the liver is of normal size and attenuation without focal lesions. Normal adrenal glands are identified. Bone windows: Neither sclerotic nor lytic bone lesions are identified. There is a T12 compression fracture. This is age indeterminant, but likely chronic. IMPRESSION: Interlobular septal thickening. This is likely partially chronic, though I suspect a component of vascular congestion. No consolidations. Disposition Summary Disposition Principal Diagnosis: CHF Additional Diagnosis: interstitial lung disease Discharge Disposition: SNF Discharge Instructions General Discharge Information Code Status: Do Not Resucitate/Intubat Patient's Diet: Heart healthy diet Patient's Activity: As tolerated with assistance Follow-Up Instructions/Appts: Please follow-up with your primary care physician in one week of discharge Please follow-up with your blocker and sewer in 1-2 week of discharge Please follow-up with your beater room supervisor in 1-2 weeks of discharge. Medications at Discharge Discharge Medications: Stop taking the following medications: Amlodipine Besylate (Amlodipine Besylate) 2.5 MG TABLET ORAL 5 PM Qty = 30 Start taking the following new medications: Furosemide (Furosemide) 20 MG TABLET 20 Milligram ORAL DAILY Qty = 30 No Refills Comments: Last Taken: 02/03/17 Time: 9:45 AM Omeprazole (Omeprazole) 20 MG CAPSULE.DR 40 Milligram ORAL DAILY BEFORE BREAKFAST Qty = 30 No Refills Comments: Last Taken: 02/03/17 Time: 6:45 AM Prednisone (Prednisone) 10 MG TABLET 10 Milligram ORAL DAILY Days = 30 No Refills Comments: Last Taken: 02/03/17 Time: 9:45 AM Cholecalciferol (Vitamin D3) 1,000 UNIT TABLET 2,000 International Unit ORAL DAILY Days = 30 No Refills Comments: NOT GIVEN WHILE IN HOSPITAL Calcium Carbonate/Vitamin D3 (Calcium 500 + D Tablet) 500 MG-400 TABLET 1 Tablet ORAL DAILY Days = 30 No Refills Copies To: YENNI MCRAE,MARCELL Attending MD Review Statement Documenting Attending: MARIO ALCARAZ MD Other Findings: The patient was seen on the day of discharge. Agree with the plan of care as outlined. Will need Pulmonary follow-up as outpatient with significant pulmonary fibrosis.
--- NOTE | 2017-02-01 16:03 | RADIOLOGY REPORT ---
EXAMINATION: XR PORTABLE CHEST CLINICAL INFORMATION: Shortness of breath. COMPARISON: Chest done on 01/30/2017. TECHNIQUE: Portable frontal view of the chest was obtained. FINDINGS: Persistent low lung volume and superimposed bilateral diffuse linear prominent nonspecific interstitial lung markings are noted. No superimposed discrete focal alveolar disease. There is no evidence of any pleural effusion present. The cardiac mediastinal silhouette is remarkable for undulated tortuous descending thoracic aorta and presence of annular calcifications. The visualized upper abdomen is unremarkable. Given the difference in technique, there is improved aeration noted as compared to prior study dated 01/30/2017. No other significant change. IMPRESSION: Improved aeration bilaterally since the prior study dated 01/30/2017. No other significant change.
[2017-02-01 16:23] VITALS: BP 112/68
--- NOTE | 2017-02-01 18:08 | PN- Cardiology ---
Subjective Subjective: No complaints. States her breathing has improved and denies any chest discomfort or palpitations. Objective Vital Signs and I&Os Vital Signs Date Time Temp Pulse Resp B/P B/P Pulse O2 O2 Flow FiO2 Mean Ox Delivery Rate 02/01 1623 98.5 74 18 112/68 93 02/01 1137 Nasal 2.0L Cannula 02/01 0842 98.8 79 20 102/54 93 Nasal 2.0L Cannula 02/01 0800 95 Nasal 2.0L Cannula 02/01 0000 96 Nasal 2.0L Cannula 01/31 2355 98.0 80 16 104/50 95 Nasal 3.0L Cannula Intake & Output 02/01 1600 02/01 0800 02/01 0000 01/31 1600 01/31 0800 01/31 0000 Intake Total 480 240 200 480 60 400 Output Total 900 375 275 300 600 Balance -420 -135 200 205 -240 -200 Intake, IV 10 Intake, Oral 480 240 200 480 50 400 Number 0 Bowel Movements Output, Urine 900 375 275 300 600 Patient 99 lb 15.99 oz Weight Physical Exam: Well-developed, well-nourished elderly female in no acute distress with nasal oxygen in place. Vital signs: See above. HEENT: Normocephalic, atraumatic, EOMI, moist mucous membranes. Neck: No JVD, no bruits. Lungs: Bibasilar crackles one third of the way up on R>L. Heart: Grade 2-3/6 systolic murmur. Abdomen: Soft, nontender, positive bowel sounds. Extremities: No edema. Current Medications: Current Medications Sig/Vanessa Start time Last Medication Dose Route Stop Time Status Admin Acetaminophen 650 MG Q6P PRN 01/29 1545 AC PO Enoxaparin Sodium 40 MG DAILY@1500 01/29 1531 AC 02/01 SC 1653 Furosemide 20 MG ONCE ONE 02/01 0915 DC 02/01 IV 02/01 0916 1150 Ibuprofen 600 MG Q6P PRN 01/29 1545 AC PO Mupirocin 1 CHRISTINE TID 01/29 2100 AC 02/01 TOP 1653 Oxycodone/ 2 TAB Q6P PRN 01/29 1545 AC Acetaminophen PO Prednisone 10 MG DAILY 01/29 1945 AC 02/01 PO 1150 Senna/Docusate Sodium 1 TAB BID 02/01 1000 AC 02/01 PO 1150 Zinc Oxide 1 CHRISTINE BID 01/29 2100 AC 02/01 TOP 1150 Results Last 48 Hrs of Labs/Mics: Laboratory Tests 02/01/17 0626: CBC w Diff MAN DIFF ORDERED, RBC 2.69 L, MCV 116.0 H, MCH 39.5 H, RDW 17.6 H , MPV 10.4, Gran % 84.5 H, Lymphocytes % 12.0 L, Monocytes % 1.5 L, Eosinophils % 1.8, Basophils % 0.2, Absolute Granulocytes 8.4 H, Segmented Neutrophils 61, Band Neutrophils 15 H, Absolute Lymphocytes 1.2, Lymphocytes 11 L, Monocytes 3, Absolute Monocytes 0.1 L, Eosinophils 2, Absolute Eosinophils 0.2, Absolute Basophils 0, Metamyelocytes 6 H, Myelocytes 2 H, Nucleated RBCs 1 H, Platelet Estimate VERIFIED BY SMEAR, Polychromasia 1+, Anisocytosis 1+, Macrocytic Cells 2+, PUBS MCHC 34.0 01/31/17 0650: Anion Gap 9, Estimated GFR > 60, BUN/Creatinine Ratio 27.5 H, Vitamin B12 719, Folate 9.6, TSH 3.200, CBC w Diff MAN DIFF ORDERED, RBC 2.66 L, MCV 116.9 H, MCH 39.9 H, RDW 18.5 H, MPV 10.1, Gran % 86.3 H, Lymphocytes % 11.0 L, Monocytes % 1.2 L, Eosinophils % 1.3, Basophils % 0.2, Absolute Granulocytes 9.3 H, Segmented Neutrophils 52, Band Neutrophils 21 H, Absolute Lymphocytes 1.2, Lymphocytes 13 L, Monocytes 2, Absolute Monocytes 0.1 L, Eosinophils 1, Absolute Eosinophils 0.1, Absolute Basophils 0, Metamyelocytes 9 H, Myelocytes 2 H, Platelet Estimate VERIFIED BY SMEAR, Polychromasia 1+, Anisocytosis 1+, Macrocytic Cells 2+, PUBS MCHC 34.2 Recent Imaging Studies: Echocardiogram (01/31/2017): Small left ventricular cavity. Mild concentric left ventricular hypertrophy. No obvious regional wall motion abnormalities. Normal left ventricular ejection fraction visually estimated at >65%. Abnormal relaxation filling pattern of the left ventricle for age (stage 1 diastolic dysfunction). Mildly increased resting left ventricular outflow tract velocity (1.5 m/s). Normal right ventricular size and function. Normal right atrial size. Mild left atrial dilatation. Systolic anterior motion (CALEB). Mild mitral regurgitation. Mild mitral stenosis. Mild aortic stenosis. Trace to mild aortic regurgitation. Trace to mild tricuspid regurgitation. No evidence of pulmonary hypertension. Mild pulmonic regurgitation. Mildly dilated proximal ascending aorta (tube). Assessment/Plan Assessment/Plan [id number] w/ hx HTN, s/p hysterectomy, sarcoidosis, ILD, achalasia, RA, a vague history of ID at 32 years, and dementia who presented to the ED with a 1 week history of progressive shortness of breath, orthopnea, and lower extremity edema w/ physical examination revealing grade 3/6 murmur, bilateral pulmonary rales, edema, and CXR c/w worsening ILD, chest CT c/w partially chronic interlobular septal thickening, as well as, a suspected component of vascular congestion, an an ECG c/w a possible old ASMI, and a markedly elevated NT-PRO BNP (3330). She has clinically and radiographically improved following diuresis, but continues to have bilateral crackles on chest exam, likely secondary to her interstitial lung disease. The results of her echocardiogram are reassuring in that she has preserved left ventricular systolic function. Recommendations:. * Continue on telemetry. * Continue to diurese with close follow-up of BUN/creatinine, potassium, magnesium, etc. * Discuss possible role pharmacologic stress testing to help exclude underlying ischemia as a contributing factor to her shortness of breath that improved following diuresis, after her respiratory status is at baseline. * Pulmonary medicine consultation for further evaluation/management of her suspected interstitial lung disease/sarcoidosis. * Continue DVT prophylaxis. Continue telemetry? Yes
[2017-02-02 00:29] VITALS: BP 106/57
--- NOTE | 2017-02-02 06:23 | PN- Housestaff ---
VASU MCRAE,SIRI 02/02/17 0623: Subjective Follow-up For: Acute respiratory failure COPD exacerbation HFpEF Tele-Events Since Last Visit: NSR with HR in 60-90s Subjective: Patient seen and examined at bedside. No events reported overnight. Resting comfortably in bed with no complaints. She reports feelig "fine." Denies any chest discomfort, palpitations, dyspnea, lightheadedness, dizziness, abdominal pain, n/v/c/d. Satting well on 1.5 liters of oxygen. Review of Systems Constitutional: Reports: see HPI. Objective Last 24 Hrs of Vital Signs/I&O Vital Signs Date Time Temp Pulse Resp B/P B/P Pulse O2 O2 Flow FiO2 Mean Ox Delivery Rate 02/02 0029 97.4 67 18 106/57 95 02/02 0000 Nasal 2.0L Cannula 02/01 1623 98.5 74 18 112/68 93 02/01 1600 Nasal 2.0L Cannula 02/01 1137 Nasal 2.0L Cannula 02/01 0842 98.8 79 20 102/54 93 Nasal 2.0L Cannula 02/01 0800 95 Nasal 2.0L Cannula Intake & Output 02/02 0800 02/02 0000 02/01 1600 Intake Total 240 480 480 Output Total 450 400 900 Balance -210 80 -420 Intake, Oral 240 480 480 Output, Urine 450 400 900 Patient 45.359 kg Weight Physical Exam General Appearance: Alert, Cooperative, No Acute Distress Other Physical Findings: Skin Rash in the back Skin Temp/Moisture Exam: Warm/Dry Sepsis Skin Exam (color): Normal for Ethnicity HEENT Atraumatic, PERRLA, EOMI, Dry mucous membrane Neck Supple, No JVD Cardiovascular Regular Rate, Normal S1, Normal S2, Systolic murmur at aortic Lungs: Mild rhonci/crackles bilaterally Abdomen Normal Bowel Sounds, Soft, No Tenderness Neurological Normal Tone, Sensation Intact, Cranial Nerves 3-12 NL Extremities No Clubbing, No Cyanosis, No Edema, Normal Pulses, No Tenderness/ Swelling Vascular Normal Pulses, Pulses Symmetrical Current Medications: Current Medications Sig/Vanessa Start time Last Medication Dose Route Stop Time Status Admin Acetaminophen 650 MG Q6P PRN 01/29 1545 AC PO Enoxaparin Sodium 40 MG DAILY@1500 01/29 1531 AC 02/01 SC 1653 Furosemide 20 MG DAILY 02/02 1000 AC PO Furosemide 20 MG ONCE ONE 02/01 0915 DC 02/01 IV 02/01 0916 1150 Ibuprofen 600 MG Q6P PRN 01/29 1545 AC PO Mupirocin 1 CRHISTINE TID 01/29 2100 AC 02/01 TOP 222 Oxycodone/ 2 TAB Q6P PRN 01/29 1545 AC Acetaminophen PO Prednisone 10 MG DAILY 01/29 1945 AC 02/01 PO 1150 Senna/Docusate Sodium 1 TAB BID 02/01 1000 AC 02/01 PO 2221 Zinc Oxide 1 CHRISTINE BID 01/29 2100 AC 02/01 TOP 222 Assessment/Plan Assessment: This is a 76 year-old female with a PMH significant for HTN, ILD, RA not on chronic prednisone, dementia and questionable sarcoidosis who presents with progressively worsening shortness of breath for the past week concerning for new onset CHF vs. ILD. # Acute hypoxic resp failure Even though patient had interstitial lung disease and she is on chronic steroid, her shortness breath most likely got exacerbated by congestive heart failure as was seen on x-ray and CT. Echo done this admission revealed stage 1 diastolic dysfunction. Mild concentric left ventricular hypertrophy. No obvious regional wall motion abnormalities. Normal LV EF at > 65%. Mildly increased resting left ventricular outflow tract velocity (1.5 m/s). No signifcant valvular abrnormalities. * Cont oxygen taper * Start Lasix 20mg PO daily awaiting further cardio input * Appreciate cardio recs, [place]. regarding Lasix use upon discharge * Oxygen support to keep O2 sat above 92% * Incentive spirometery # Interstitial lung disease CT chest suspscious for advanced pulmonary fibrosis. * Pulm consulted, appreciate recs * TRC neb tx as needed # RA with rash exacerbation * Cont prednisone taper (started at home) - currently at 10mg QD # HTN * Holding home med Norvasc as patient is borderline hypotensive * Lasix PO 20mg QD (started this admission) # Macrocytic anemia B12 and folate checked and normal. * Check TSH - WNL #Chronic dysphagia * Cont chopped diet. # Leukocytosis - resolved Most likely 2/2 recent steroid use for RA. No other signs of SIRS. WBCs is back to normal. - PT recommended STIR - DNR/DNI - Heart healthy chopped - DVT prophylaxis with Lovenox and Alps Problem List: 1. CHF exacerbation 2. Benign hypertension 3. Interstitial lung disease 4. GERD 5. Dementia Pain Ratin Pain Location: 0 Pain Goal: Remain pain free Pain Plan: Mild path Tomorrow's Labs & Rationales: BEP - monitor lytes and renal fx Consulting Request: Consulting Specialty: Cardiology Consulting Physician: MD KIERAN Suarez MD, WILLIAM 02/02/17 1134: Attending MD Review Statement Attending Statement Attending MD Statement: examined this patient, discuss w/resident/PA/PROGRAM SPECIALIST, agreed w/resident/PA/PROGRAM SPECIALIST, reviewed EMR data (avail), discussed with nursing, reviewed images, amended to note Attending Assessment/Plan: The patient was seen and discussed with house staff. Reviewed CT of chest with Radiology yesterday (also reviewed lung images from prior Abdominal CT from 2012 ). The patient appears to have significant interstitial lung disease and I believe this is contributing to dyspnea. Unclear regarding how much of this may be interstitial pneumonitis vs. fibrosis. Await pulmonary input from Dr. velázquez.
[2017-02-02 08:06] VITALS: BP 106/56
--- NOTE | 2017-02-02 11:45 | PN- Cardiology ---
Subjective Subjective: No complaints. Denies any chest discomfort, palpitations, or shortness of breath. Objective Vital Signs and I&Os Vital Signs Date Time Temp Pulse Resp B/P B/P Pulse O2 O2 Flow FiO2 Mean Ox Delivery Rate 02/02 1132 Nasal 1.0L Cannula 02/02 1103 Nasal 2.0L Cannula 02/02 0806 96.7 74 18 106/56 93 Nasal 2.0L Cannula 02/02 0029 97.4 67 18 106/57 95 02/02 0000 Nasal 2.0L Cannula 02/01 1623 98.5 74 18 112/68 93 02/01 1600 Nasal 2.0L Cannula Intake & Output 02/02 1600 02/02 0800 02/02 0000 02/01 1600 02/01 0800 02/01 0000 Intake Total 240 480 480 240 200 Output Total 450 400 900 375 Balance -210 80 -420 -135 200 Intake, Oral 240 480 480 240 200 Output, Urine 450 400 900 375 Patient 99 lb 15.99 oz Weight Physical Exam: Well-developed, well-nourished elderly female in no acute distress with nasal oxygen in place. Vital signs: See above. Neck: No JVD, no bruits. Lungs: Bilateral crackles right greater than left. Heart: Grade 2-3/6 systolic murmur no murmur, gallop, or rub appreciated. PMI fifth ICS at [facility]. Abdomen: Soft, nontender, positive bowel sounds. Extremities: No edema. Current Medications: Current Medications Sig/Vanessa Start time Last Medication Dose Route Stop Time Status Admin Acetaminophen 650 MG Q6P PRN 01/29 1545 AC PO Enoxaparin Sodium 40 MG DAILY@1500 01/29 1531 02/01 VA 1653 Furosemide 20 MG DAILY 02/02 1000 AC 02/02 PO 0934 Ibuprofen 600 MG Q6P PRN 01/29 1545 AC PO Mupirocin 1 CHRISTINE TID 01/29 2100 AC 02/02 TOP 0937 Oxycodone/ 2 TAB Q6P PRN 01/29 1545 AC Acetaminophen PO Prednisone 10 MG DAILY 01/29 1945 AC 02/02 PO 0934 Senna/Docusate Sodium 1 TAB BID 02/01 1000 AC 02/02 PO 0934 Zinc Oxide 1 CHRISTINE BID 01/29 2100 02/02 TOP 0937 Results Last 48 Hrs of Labs/Mics: Laboratory Tests 02/02/17 0717: Anion Gap 8, Estimated GFR > 60, BUN/Creatinine Ratio 35.0 H, ESR Westergren 130 H 02/01/17 0626: CBC w Diff MAN DIFF ORDERED, RBC 2.69 L, MCV 116.0 H, MCH 39.5 H, RDW 17.6 H , MPV 10.4, Gran % 84.5 H, Lymphocytes % 12.0 L, Monocytes % 1.5 L, Eosinophils % 1.8, Basophils % 0.2, Absolute Granulocytes 8.4 H, Segmented Neutrophils 61, Band Neutrophils 15 H, Absolute Lymphocytes 1.2, Lymphocytes 11 L, Monocytes 3, Absolute Monocytes 0.1 L, Eosinophils 2, Absolute Eosinophils 0.2, Absolute Basophils 0, Metamyelocytes 6 H, Myelocytes 2 H, Nucleated RBCs 1 H, Platelet Estimate VERIFIED BY SMEAR, Polychromasia 1+, Anisocytosis 1+, Macrocytic Cells 2+, PUBS MCHC 34.0 Recent Imaging Studies: XR PORTABLE CHEST CLINICAL INFORMATION: Shortness of breath. COMPARISON: Chest done on 01/30/2017. TECHNIQUE: Portable frontal view of the chest was obtained. FINDINGS: Persistent low lung volume and superimposed bilateral diffuse linear prominent nonspecific interstitial lung markings are noted. No superimposed discrete focal alveolar disease. There is no evidence of any pleural effusion present. The cardiac mediastinal silhouette is remarkable for undulated tortuous descending thoracic aorta and presence of annular calcifications. The visualized upper abdomen is unremarkable. Given the difference in technique, there is improved aeration noted as compared to prior study dated 01/30/2017. No other significant change. IMPRESSION: Improved aeration bilaterally since the prior study dated 01/30/2017. No other significant change. Assessment/Plan Assessment/Plan [id number] w/ hx HTN, s/p hysterectomy, sarcoidosis, ILD, achalasia, RA, a vague history of RI at 32 years, and dementia who presented to the ED with a 1 week history of progressive shortness of breath, orthopnea, and lower extremity edema w/ physical examination revealing grade 3/6 murmur, bilateral pulmonary rales, edema, and CXR c/w worsening ILD, chest CT c/w partially chronic interlobular septal thickening, as well as, a suspected component of vascular congestion, an an ECG c/w a possible old ASMI, and a markedly elevated NT-PRO BNP (3330). She has clinically and radiographically improved following diuresis, but continues to have bilateral crackles on chest exam, likely secondary to her interstitial lung disease. Recommendations:. * Continue on telemetry. * Continue to diurese with close follow-up of BUN/creatinine, potassium, magnesium, etc. * Discuss possible role pharmacologic stress testing to help exclude underlying ischemia as a contributing factor to her shortness of breath that improved following diuresis. * Pulmonary medicine consultation for further evaluation/management of her interstitial lung disease/sarcoidosis. * Continue DVT prophylaxis. Continue telemetry? Yes
[2017-02-02 15:30] VITALS: BP 102/54
--- NOTE | 2017-02-02 17:20 | Cons- Pulmonary ---
General Information and HPI Consulting Request Date of Consult: 02/02/17 Requested By: med team History of Present Illness: 76 year-old female with a PMH significant for HTN, ILD, RA not on chronic prednisone, and dementia who presents with progressively worsening shortness of breath for the past week. Per the family at bedside, patient never complains of anything but she was noted to have difficulty breathing. Patient was seen by her PCP Dr. Hernandez 2 days ago at which point CXR and BNP were checked. The son noticed that the patient's breathing looks worse today and BNP came back elevated over 3000 with a concerning CTX per Dr. Hernandez. The son chris brought her into ED for further evaluation. Currntly she does not see any physicians besides Dr. Hernandez. Patient lives at home with her son and [id number]. She uses a walker to ambulate. Denies any substance/EtOH use. On ROS patient has no chest pain, cough, palpitations, n/v/c /d. The family thinks that patient may have some abdominal pain which patient denies at the time of interview. Allergies/Medications Allergies: Coded Allergies: shellfish derived (Intermediate, SWELLING 01/29/17) Sulfa (Sulfonamide Antibiotics) (HIVES 01/29/17) iodamide (UNKNOWN 01/29/17) Home Med List: Amlodipine Besylate 2.5 MG TABLET 1 TAB PO 1700 CIRCULATION (Reported) Review of Systems Review of Systems Constitutional: Reports: see HPI. Past History Travel History Traveled to [place] past 21 day No Medical History Neurological: dementia EENT: NONE Cardiovascular: myocardial infarction Respiratory: interstitial lung disease, sarcoidosis Gastrointestinal: achalasia Hepatic: NONE Renal: NONE Musculoskeletal: rheumatoid arthritis Psychiatric: NONE Endocrine: NONE Surgical History Surgical History: non-contributory Psychosocial History Where Do You Live? Home Who Do You Live With? child Services at Home: None Smoking Status: Never Smoked Exam & Diagnostic Data Last 24 Hrs of Vital Signs/I&O Vital Signs Date Time Temp Pulse Resp B/P B/P Pulse O2 O2 Flow FiO2 Mean Ox Delivery Rate 02/02 1530 99.1 90 16 102/54 98 Nasal Cannula 02/02 1132 Nasal 1.0L Cannula 02/02 1103 Nasal 2.0L Cannula 02/02 0806 96.7 74 18 106/56 93 Nasal 2.0L Cannula 02/02 0029 97.4 67 18 106/57 95 02/02 0000 Nasal 2.0L Cannula Intake & Output 02/02 1600 02/02 0800 02/02 0000 Intake Total 520 240 480 Output Total 250 450 400 Balance 270 -210 80 Intake, Oral 520 240 480 Output, Urine 250 450 400 Last 48 Hrs of Labs/Carlos: Laboratory Tests 02/02/17 0717: Anion Gap 8, Estimated GFR > 60, BUN/Creatinine Ratio 35.0 H, ESR Westergren 130 H 02/01/17 0626: CBC w Diff MAN DIFF ORDERED, RBC 2.69 L, MCV 116.0 H, MCH 39.5 H, RDW 17.6 H , MPV 10.4, Gran % 84.5 H, Lymphocytes % 12.0 L, Monocytes % 1.5 L, Eosinophils % 1.8, Basophils % 0.2, Absolute Granulocytes 8.4 H, Segmented Neutrophils 61, Band Neutrophils 15 H, Absolute Lymphocytes 1.2, Lymphocytes 11 L, Monocytes 3, Absolute Monocytes 0.1 L, Eosinophils 2, Absolute Eosinophils 0.2, Absolute Basophils 0, Metamyelocytes 6 H, Myelocytes 2 H, Nucleated RBCs 1 H, Platelet Estimate VERIFIED BY SMEAR, Polychromasia 1+, Anisocytosis 1+, Macrocytic Cells 2+, PUBS MCHC 34.0 Assessment/Plan Impression/Plan: Physical Exam: thin elderly female in no acute distress with nasal oxygen in place. Vital signs: See above. Neck: No JVD, no bruits. Lungs: Bilateral crackles right greater than left. Heart: Grade 2-3/6 systolic murmur no murmur, gallop, or rub appreciated. PMI fifth ICS at [facility]. Abdomen: Soft, nontender, positive bowel sounds. Extremities: No edema. This is an elderly lady with the previous history of rheumatoid arthritis, previous methotrexate use, previous achalasia with recurrent GERD, worsening dementia, systolic ejection murmur, significant diastolic heart disease, has the following issue Significant pulmonary fibrosis which seems to be present for many years with multiple etiology could be a possibility which include rheumatoid arthritis causing ILD, previous methotrexate which may have initiated ILD versus achalasia cardia with recurrent GERD. He seems to have very severe pulmonary fibrosis and unfortunately it's and result of a chronic issue. She has had multiple autoimmune issues which include rheumatoid and recent skin issues. There is some mention of sarcoidosis in her history but she's never had a biopsy that I can see in the family was not aware of that. Recent worsening is related to possible mild heart failure on top of her ILD which may have made her worse clinically Significant achalasia with recurrent regurg Rheumatoid arthritis now on 10 mg of prednisone Echocardiogram suggestive of small left ventricular cavity with stage I diastolic dysfunction with mild increase resting left ventricular outflow tract velocity with mild aortic stenosis. Mild pulmonary hypertension with estimated PA pressure of 25 and echocardiogram RECOMMENDATION Continue diuresis if patient can tolerate Continue prednisone at 10 mg Check vitamin D Keep the head of bed elevated Start proton pump inhibitor 40 mg once a day Patient is not a candidate for bronchoscopy or lung biopsy as she seems to have terminal interstitial lung disease. The best treatment would be to manage her conservatively, prevent acid reflux, prevent recurrent aspiration and low-dose prednisone. However this may not be necessary in the long run as the risks outweigh the benefit from prednisone. Patient is not on methotrexate and that should not be used again as she has pulmonary fibrosis We'll continue her oxygen and diuresis her and then we can obtain a baseline evaluation. Consult Acknowledgment - Thank you for your consult request.
[2017-02-03 00:18] VITALS: BP 98/58
--- NOTE | 2017-02-03 06:16 | PN- Housestaff ---
See Addendum Subjective Follow-up For: Acute respiratory failure HFpEF Interstitial lung disease Tele-Events Since Last Visit: NSR with HR in 60-90s, nothced p waves Subjective: Patient seen and examined at bedside. Resting comfortably in bed with no complaints. Satting well on 1 liters of oxygen. Denies any dyspnea, chest discomfort, palpitations, dyspnea, lightheadedness, dizziness, abdominal pain, n /v/c/d. No events reported overnight. Review of Systems Constitutional: Reports: see HPI. EENTM: Reports: ear pain. Objective Last 24 Hrs of Vital Signs/I&O Vital Signs Date Time Temp Pulse Resp B/P B/P Pulse O2 O2 Flow FiO2 Mean Ox Delivery Rate 02/03 0018 97.8 64 16 98/58 94 Nasal Cannula 02/03 0000 98 Nasal 1.0L Cannula 02/02 1600 98 Nasal 1.0L Cannula 02/02 1530 99.1 90 16 102/54 98 Nasal Cannula 02/02 1132 Nasal 1.0L Cannula 02/02 1103 Nasal 2.0L Cannula 02/02 0806 96.7 74 18 106/56 93 Nasal 2.0L Cannula Intake & Output 02/03 0800 02/03 0000 02/02 1600 Intake Total 100 520 520 Output Total 200 250 Balance 100 320 270 Intake, Oral 100 520 520 Output, Urine 200 250 Physical Exam General Appearance: Alert, Oriented X3, Cooperative, No Acute Distress Other Physical Findings: Skin Rash in the back Skin Temp/Moisture Exam: Warm/Dry Sepsis Skin Exam (color): Normal for Ethnicity HEENT Atraumatic, PERRLA, EOMI, Dry mucous membrane Neck Supple, No JVD Cardiovascular Regular Rate, Normal S1, Normal S2, Systolic murmur at aortic Lungs: Mild rhonci/crackles bilaterally Abdomen Normal Bowel Sounds, Soft, No Tenderness Neurological Normal Tone, Sensation Intact, Cranial Nerves 3-12 NL Extremities No Clubbing, No Cyanosis, No Edema, Normal Pulses, No Tenderness/ Swelling Vascular Normal Pulses, Pulses Symmetrical Current Medications: Current Medications Sig/Vanessa Start time Last Medication Dose Route Stop Time Status Admin Acetaminophen 650 MG Q6P PRN 01/29 1545 AC PO Enoxaparin Sodium 40 MG DAILY@1500 01/29 1531 AC 02/02 SC 1548 Furosemide 20 MG DAILY 02/02 1000 AC 02/02 PO 0934 Ibuprofen 600 MG Q6P PRN 01/29 1545 AC PO Mupirocin 1 CHRISTINE TID 02/03 1000 AC TOP Mupirocin 1 CHRISTINE TID 01/29 2100 DC 02/02 TOP 1548 Omeprazole 40 MG DAILY AC 02/02 1740 AC 02/03 PO 0616 Oxycodone/ 2 TAB Q6P PRN 01/29 1545 AC Acetaminophen PO Patient Medication 1 ED .STK-MED ONE 02/02 1409 DC Teaching ED 02/02 1410 Prednisone 10 MG DAILY 01/29 1945 AC 02/02 PO 0934 Senna/Docusate Sodium 1 TAB BID 02/01 1000 AC 02/02 PO 2050 Zinc Oxide 1 CHRISTINE BID 01/29 2100 AC 02/02 TOP 2049 Last 24 Hrs of Lab/Carlos Results Last 24 Hrs of Labs/Mics: Laboratory Tests 02/03/17 0635: Sodium Pending, Potassium Pending, Chloride Pending, Carbon Dioxide Pending, Anion Gap Pending, BUN Pending, Creatinine Pending, BUN/Creatinine Ratio Pending , Magnesium Pending Assessment/Plan Assessment: This is a 76 year-old female with a PMH significant for HTN, ILD, RA not on chronic prednisone, dementia and questionable sarcoidosis who presents with progressively worsening shortness of breath for the past week concerning for new onset CHF vs. ILD. # Acute hypoxic resp failure Patient desatted on RA on admission, requiring 2-3 liters of oxygen to maintain above 92%. Even though patient had interstitial lung disease and she is on chronic steroid, her shortness breath most likely got exacerbated by congestive heart failure as was seen on x-ray and CT. Echo done this admission revealed stage 1 diastolic dysfunction. Mild concentric left ventricular hypertrophy. No obvious regional wall motion abnormalities. Normal LV EF at > 65%. Mildly increased resting left ventricular outflow tract velocity (1.5 m/s). No signifcant valvular abrnormalities. * Cont oxygen taper * Cont Lasix 20mg PO daily * Appreciate cardio recs, [place]. regarding Lasix use upon discharge * Oxygen support to keep O2 sat above 92% * Incentive spirometery # Interstitial lung disease CT chest suspscious for advanced pulmonary fibrosis. * Appreciate pulm recs * TRC neb tx as needed * Cont prednisone 10mg PO daily # RA with rash exacerbation * Cont prednisone as above # HTN * Holding home med Norvasc as patient is borderline hypotensive * Lasix PO 20mg QD (started this admission) # Macrocytic anemia B12 and folate checked and normal. * Check TSH - WNL #Chronic dysphagia * Cont chopped diet. # Leukocytosis - resolved Most likely 2/2 recent steroid use for RA. No other signs of SIRS. WBCs is back to normal. - PT recommended STIR - DNR/DNI - Heart healthy chopped - DVT prophylaxis with Lovenox and Alps Problem List: 1. Benign hypertension 2. GERD 3. RULE OUT CDIFF 4. Rheumatoid arthritis 5. CHF exacerbation 6. Interstitial lung disease 7. Dementia Pain Ratin Pain Location: 0 Pain Goal: Remain pain free Pain Plan: Mild pain pathway Tomorrow's Labs & Rationales: BEP to check renal fx Consulting Request: Consulting Specialty: Cardiology Consulting Physician: Boo Chen MD
[2017-02-03 08:00] VITALS: BP 96/58
[2017-02-03] MEDS ORDERED: OMEPRAZOLE20 M2 PO (09:16)
[2017-02-03] MEDS ORDERED: FUROSEMIDE20 M1 PO (09:16)
--- NOTE | 2017-02-03 09:18 | Patient Discharge Instructions ---
Discharge Instructions General Discharge Information You were seen/treated for: Interstital lung disease (pulmonary fibrosis) Diastolic heart failure Special Instructions: Please follow up with clicker operator Dr. Chen and mixer slagman Dr. Yuan within 1 week of discharge. Follow up with primary care provider in 1-2 weeks. Diet Continue normal diet: Yes Recommended Diet: Heart Healthy Activity Full Activity/No Limits: Yes (as tolerated) Acute Coronary Syndrome Inclusion Criteria At DC or during hospital stay patient has or had the following: ACS DIAGNOSIS No Discharge Core Measures Meds if any: Prescribed or Continued at Discharge Meds if any: NOT Prescribed or Continued at Discharge Congestive Heart Failure Inclusion Criteria At DC or during hospital stay patient has or had the following: CHF DIAGNOSIS No Discharge Core Measures Meds if any: Prescribed or Continued at Discharge Meds if any: NOT Prescribed or Continued at Discharge Cerebrovascular accident Inclusion Criteria At DC or during hospital stay patient has or had the following: CVA/TIA Diagnosis No Discharge Core Measures Meds if any: Prescribed or Continued at Discharge Meds if any: NOT Prescribed or Continued at Discharge Venous thromboembolism Inclusion Criteria VTE Diagnosis No VTE Type NONE VTE Confirmed by (Test) NONE Discharge Core Measures - Per Current guidelines, there needs to be overlap - treatment for the first 5 days of Warfarin therapy. - If discharged on Warfarin prior to 5 days of - overlap therapy, the patient will need to be - assessed for post discharge needs including - *Post discharge parental anticoagulation - *Warfarin and/or parental anticoagulation education - *Follow up date to check INR post discharge At least 5 days overlap therapy as Inpatient Yes Meds if any: Prescribed or Continued at Discharge Note: Overlap Therapy is Warfarin and Anticoagulant Meds if any: NOT Prescribed or Continued at Discharge
[2017-02-03] MEDS ORDERED: PREDNISONE10 M2 PO (09:19)
--- NOTE | 2017-02-03 09:28 | PN- Pulmonary ---
Subjective HPI/Critical Care Issues: Doing much better Cxr from much improved chf with underlying ild Patient seen and examined at bedside. No events reported overnight. Resting comfortably in bed with no complaints. She reports feelig "fine." Denies any chest discomfort, palpitations, dyspnea, lightheadedness, dizziness, abdominal pain, n/v/c/d. Satting well on 1.5 liters of oxygen. Review of Systems Constitutional: Reports: see HPI. EENTM: Reports: ear pain. Objective Current Medications: Current Medications Sig/Vanessa Start time Last Medication Dose Route Stop Time Status Admin Acetaminophen 650 MG Q6P PRN 01/29 1545 AC PO Enoxaparin Sodium 40 MG DAILY@1500 01/29 1531 AC 02/02 SC 1548 Furosemide 20 MG DAILY 02/02 1000 AC 02/02 PO 0934 Ibuprofen 600 MG Q6P PRN 01/29 1545 AC PO Mupirocin 1 CHRISTINE TID 02/03 1000 AC TOP Mupirocin 1 CHRISTINE TID 01/29 2100 DC 02/02 TOP 1548 Omeprazole 40 MG DAILY AC 02/02 1740 AC 02/03 PO 0616 Oxycodone/ 2 TAB Q6P PRN 01/29 1545 AC Acetaminophen PO Patient Medication 1 ED .STK-MED ONE 02/02 1409 DC Teaching ED 02/02 1410 Prednisone 10 MG DAILY 01/29 1945 AC 02/02 PO 0934 Senna/Docusate Sodium 1 TAB BID 02/01 1000 AC 02/02 PO 2050 Zinc Oxide 1 CHRISTINE BID 01/29 2100 AC 02/02 TOP 2050 Vital Signs & I&O Last 24 Hrs of Vitals and I&O: Vital Signs Date Time Temp Pulse Resp B/P B/P Pulse O2 O2 Flow FiO2 Mean Ox Delivery Rate 02/03 0800 97.8 66 18 96/58 93 Nasal Cannula 02/03 0018 97.8 64 16 98/58 94 Nasal Cannula 02/03 0000 98 Nasal 1.0L Cannula 02/02 1600 98 Nasal 1.0L Cannula 02/02 1530 99.1 90 16 102/54 98 Nasal Cannula 02/02 1132 Nasal 1.0L Cannula 02/02 1103 Nasal 2.0L Cannula Intake & Output 02/03 1600 02/03 0800 02/03 0000 Intake Total 100 520 Output Total 200 Balance 100 320 Intake, Oral 100 520 Output, Urine 200 Impression/Plan Impression/Plan Impression/Plan: Physical Exam: thin elderly female in no acute distress with nasal oxygen in place. Vital signs: See above. Neck: No JVD, no bruits. Lungs: Bilateral crackles right greater than left. Heart: Grade 3/6 systolic murmur no murmur, gallop, or rub appreciated. PMI fifth ICS at [facility]. Abdomen: Soft, nontender, positive bowel sounds. Extremities: No edema. This is an elderly lady with the previous history of rheumatoid arthritis, previous methotrexate use, previous achalasia with recurrent GERD, worsening dementia, systolic ejection murmur, significant diastolic heart disease, has the following issue * Significant pulmonary fibrosis which seems to be present for many years with multiple etiologies - which include rheumatoid arthritis causing ILD, previous methotrexate which may have induced ILD versus achalasia cardia with recurrent GERD. She seems to seems to have very severe pulmonary fibrosis unfortunately. She also has had multiple autoimmune issues which include rheumatoid and recent skin issues which could be an inciting factor aswell. There is some mention of sarcoidosis in her history but she's never had a biopsy that I can see. * Recent worsening is related to mild heart failure on top of her ILD which may have made her worse clinically and its slowly improving * Significant achalasia with recurrent regurg * Rheumatoid arthritis and recent autoimmune skin disease, now on 10 mg of prednisone * Echocardiogram suggestive of small left ventricular cavity with stage I diastolic dysfunction with mild increase resting left ventricular outflow tract velocity with aortic stenosis with a sig murmur - with chf improving * Mild pulmonary hypertension with estimated PA pressure of 25 and echocardiogram RECOMMENDATION Continue diuresis if patient can tolerate Continue prednisone at 10 mg Check vitamin D and replace, add calcium to her meds Keep the head of bed elevated Proton pump inhibitor 40 mg once a day Patient is not a candidate for bronchoscopy or lung biopsy as she seems to have terminal interstitial lung disease. The best treatment would be to manage her conservatively, prevent acid reflux, prevent recurrent aspiration and low-dose prednisone. Patient is not on methotrexate and that should not be used again as she has pulmonary fibrosis We'll continue her oxygen and diuresis which will probably bring her back to her baseline Ok to rehab
[2017-02-03 09:30] VITALS: BP 110/56
[2017-02-03] MEDS ORDERED: VITAMIN D31000 UNI2 PO (10:08)
[2017-02-03] MEDS ORDERED: CALCIUM 500 +1 EAC5 PO (10:11)
[2017-02-03 11:04] VITALS: BP 110/56
[2017-02-03 11:24] VITALS: BP 110/56
== END 2017-02-03 12:39 | DRG 291 ==
LOC: ERH 11:32 → 1NO 14:59 → ERHI 14:59 → ENRESERV 17:10 → ENTRNSPT 18:40 → EDTRNSPTTYP 18:51 → EDTRNSPT 18:51 → 1NO 18:58 → CMPTRNSPT 21:33 → 1NO 01-30 10:04 → ENPENDDIS 02-03 10:00 → 1NO 02-03 12:39
PROVIDERS: Physician Assistant Medical; Student in an Organized Health Care Education/Training Program; ADMIT Internal Medicine
DX: I11.0 Hypertensive heart disease with heart failure (principal); J96.01 Acute respiratory failure with hypoxia; J84.9 Interstitial pulmonary disease, unspecified; J84.10 Pulmonary fibrosis, unspecified; I27.2 Other secondary pulmonary hypertension; E87.1 Hypo-osmolality and hyponatremia; F03.90 Unspecified dementia, unspecified severity, without behavioral disturbance, psychotic disturbance, mood disturbance, and anxiety; M06.9 Rheumatoid arthritis, unspecified; I35.0 Nonrheumatic aortic (valve) stenosis; D53.9 Nutritional anemia, unspecified; I50.30 Unspecified diastolic (congestive) heart failure; Z66 Do not resuscitate
CPT/HCPCS: 1NP; 1NSP; 36415; 82436; 87086; 93005; 93010; 93306; 97110-GO; 97116-GO; 97161-GP; 97165-GO; 97530-GO; J1650; J1940; J7512

== ENCOUNTER 2017-02-26 02:24 | Inpatient (IN) | payer OTHER ==
[~2017-02-26] VITALS: Ht 152.4 cm; Wt 46.3 kg
[~2017-02-26 02:24] MED LIST: AMLODIPINE BES2.5 M1 PO; CALCIUM 500 +1 EAC5 PO; FUROSEMIDE20 M1 PO; OMEPRAZOLE20 M2 PO; PREDNISONE10 M2 PO; VITAMIN D31000 UNI2 PO
--- NOTE | 2017-02-26 02:37 | NUR ---
ARRIVED ER 12 WITH FEVER AND DIFFICULTY BREATHING ST ON MONITOR O2 SAT RA 89-90 % PLACED ON NC 2L/MIN SAT 91-92 %
--- NOTE | 2017-02-26 02:41 | NUR ---
HOSPITAL IV EST #20 RIGHT FOREARM. EKG IN PROGRESS.
[2017-02-26 03:26] LABS: ABSOLUTE BASOPHIL COUNT 0 /CUMM (0.0-0.2); ABSOLUTE EOSINOPHIL COUNT 0.1 /CUMM (0.0-0.7); ABSOLUTE GRANULOCYTE CT 21.5 /CUMM (1.4-6.5); ABSOLUTE LYMPH COUNT 1.9 /CUMM (1.2-3.4); ABSOLUTE MONOCYTE COUNT 0.3 /CUMM (0.10-0.60); BASOPHIL % 0.1 % (0.0-2.0); EOSINOPHIL % 0.3 % (0-5); GRANULOCYTE % 90.2 % (42.2-75.2); MEAN CORPUSCULAR HGB CONC 33.3 G/DL (33.0-37.0); MEAN CORPUSCULAR VOLUME 114.1 FL (81.0-99.0); MEAN PLATELET VOLUME 10.5 FL (7.4-10.4); PLATELET COUNT 184 /CUMM (130-400); RED BLOOD CELL CT 2.98 /CUMM (4.20-5.40); WHITE BLOOD CELL COUNT 23.9 /CUMM (4.8-10.8)
--- NOTE | 2017-02-26 03:45 | NUR ---
CRITICAL TEST RESULTS [id number] SILVERIOMARIA ELENA CAR R 76 F TESTS AND RESULTS: LACTIC ACID 3.0 Results received and read back by: MIGUE RON Results received date and time: 02/26/17 0346 The following provider was notified of the results, and read the results back: DR. AUGUSTIN Notified date and time: 02/26/17 at 0346
--- NOTE | 2017-02-26 04:02 | RADIOLOGY REPORT ---
EXAMINATION: XR PORTABLE CHEST CLINICAL INFORMATION: History of interstitial lung disease, volume overload with cough, shortness of breath, rhonchi, wheeze COMPARISON: 02/19/2017 TECHNIQUE: Portable frontal view of the chest was obtained. FINDINGS: Lung volumes are symmetric. There is diffuse interstitial prominence which appears similar to prior. No definite acute consolidation is seen. No evidence of pneumothorax or pleural effusion. The cardiomediastinal silhouette is stable. No acute osseous findings are seen. IMPRESSION: Redemonstrated diffuse interstitial prominence, in keeping with history of underlying chronic lung disease. A component of mild underlying interstitial edema would be difficult to exclude. No dense consolidation.
--- NOTE | 2017-02-26 04:11 | NUR ---
MEDICATED WITH TYLENOL
--- NOTE | 2017-02-26 04:31 | ED DYSPNEA/ASTHMA COMPLAINT ---
See Addendum History of Present Illness General Chief Complaint: Dyspnea (COPD, CHF, Other) Stated Complaint: BIBA, SOB Source: family, old records, EMS Exam Limitations: dementia Vital Signs & Intake/Output Vital Signs & Intake/Output Vital Signs Date Time Temp Pulse Resp B/P B/P Pulse O2 O2 Flow FiO2 Mean Ox Delivery Rate 02/26 0535 100.8 112 22 84/50 94 Nasal 3.0L Cannula 02/26 0337 88 Nasal 4.0L Cannula 02/26 0239 91 Nasal 2.0L Cannula 02/26 0233 102.0 119 20 120/56 92 Nasal 3.0L Cannula Allergies Coded Allergies: shellfish derived (Intermediate, SWELLING 01/29/17) Sulfa (Sulfonamide Antibiotics) (HIVES 01/29/17) iodamide (UNKNOWN 01/29/17) Reconcile Medications Calcium Carbonate/Vitamin D3 (Calcium 500 + D Tablet) 500 MG-400 TABLET 1 TAB PO DAILY supplement Cholecalciferol (Vitamin D3) 1,000 UNIT TABLET 2,000 IU PO DAILY Supplement Furosemide 20 MG TABLET 20 MG PO DAILY DIURETIC Omeprazole 20 MG CAPSULE.DR 40 MG PO DAILY AC GI PPX Prednisone 10 MG TABLET 10 MG PO DAILY RA Triage Note: ARRIVED ER 12 WITH FEVER AND DIFFICULTY BREATHING ST ON MONITOR O2 SAT RA 89-90 % PLACED ON NC 2L/MIN SAT 91-92 % Triage Nurses Notes Reviewed? yes Onset: Afternoon Duration: hour(s):, constant, continues in ED, getting worse Timing: recent history Severity: severe Activities at Onset: none Prior Episodes/Possible Cause: chronic episodes Modifying Factors: Improves With: rest. Worsens With: movement. Associated Symptoms: cough, wheezing, weakness LMP (ages 10-50): post menopausal : No Patient currently breastfeeds: No HPI: Patient was discharged from [facility] yesterday for interstitial lung disease and CHF rehabilitation. The bathroom prior to admission she was noted to have increasing work of breathing with wheezing and weakness with continued cough. There's been no fever chills nausea vomiting diarrhea abdominal pain chest pain headache dysuria rash bleeding noted. Past History Travel History Traveled to [place] past 21 day No Medical History Any Pertinent Medical History? see below for history Neurological: dementia EENT: NONE Cardiovascular: myocardial infarction Respiratory: interstitial lung disease, sarcoidosis Gastrointestinal: achalasia Hepatic: NONE Renal: NONE Musculoskeletal: rheumatoid arthritis Psychiatric: NONE Endocrine: NONE History of MRSA: No History of VRE: No History of CDIFF: No Surgical History Surgical History: non-contributory Psychosocial History Who do you live with Patient/Self Services at Home None What is your primary language [place] Tobacco Use: Never used Family History Hx Contributory? No Review of Systems Review of Systems Constitutional: Reports: no symptoms. EENTM: Reports: no symptoms. Respiratory: Reports: see HPI, cough, short of breath, wheezing. Cardiovascular: Reports: no symptoms. GI: Reports: no symptoms. Genitourinary: Reports: no symptoms. Musculoskeletal: Reports: no symptoms. Skin: Reports: no symptoms. Neurological/Psychological: Reports: no symptoms. Hematologic/Endocrine: Reports: no symptoms. Immunologic/Allergic: Reports: no symptoms. All Other Systems: Reviewed and Negative Physical Exam Physical Exam General Appearance: well developed/nourished, alert, awake, anxious, severe distress Head: atraumatic, normal appearance Eyes: Bilateral: normal appearance, PERRL, EOMI. Ears, Nose, Throat: normal pharynx, normal ENT inspection, hearing grossly normal Neck: normal inspection, supple, full range of motion, no midline tenderness Respiratory: chest non-tender, accessory muscle use, crackles, rhonchi, wheezing , respiratory distress Cardiovascular: regular rate/rhythm, murmur, normal peripheral pulses, norml femoral pulses equa Peripheral Pulses: 4+ carotid (R), 4+ carotid (L) Gastrointestinal: normal bowel sounds, soft, non-tender, no organomegaly Extremities: normal inspection, normal capillary refill, normal range of motion, no edema Neurologic/Psych: no motor/sensory deficits, upholsterer inside II-XII nml as tested Skin: intact, normal color, warm/dry Lymphatic: no anterior cervical deon Core Measures ACS in differential dx? No Severe Sepsis Present: No Septic Shock Present: No Progress Differential Diagnosis: asthma, bronchitis, CHF, COPD, pneumonia Plan of Care: Orders Procedure Date/time Status Regular Diet 02/26 B Active LACTIC ACID 02/26 610 Active TRC EVALUATION (GEN) 02/26 600 Active CHEST PHYSICAL THERAPY (GEN) 02/26 600 Active Pathway - chart 02/26 600 Active House Staff 02/26 600 Active SPECIMEN TO BE OBTAINED 02/26 600 Active C.DIFFICILE 02/26 600 Active Code Status 02/26 600 Active SPECIMEN TO BE OBTAINED 02/26 05 Active URINALYSIS 02/26 0525 Active Patient Data 02/26 0502 Active OXYGEN SETUP (GEN) 02/26 043 Complete Saline Lock 02/26 043 Active Admit to inpatient 02/26 043 Active Vital Signs 02/26 043 Active Activity/Ambulation 02/26 043 Active Code Status 02/26 0433 Complete THERAPIST ORDERS 02/26 042 Complete ARTERIAL BLOOD GAS (GEN) 02/26 040 Active BLOOD CULTURE 02/26 031 Active LACTIC ACID 02/26 031 Complete TROPONIN LEVEL 02/26 0309 Complete MAGNESIUM 02/26 0309 Complete COMPREHENSIVE METABOLIC PANEL 02/26 0309 Complete CBC WITHOUT DIFFERENTIAL 02/26 030 Complete B-TYPE NATRIURETIC PEP (BNP) 02/26 030 Complete EKG 02/26 022 Active Weight 02/26 UNK Active VTE Mechanical Prophylaxis 02/26 UNK Active Intake & Output 02/26 UNK Active Activity/Ambulation 02/26 UNK Active Current Medications Sig/Vanessa Start time Last Medication Dose Stop Time Status Admin Enoxaparin Sodium 40 MG DAILY 02/26 1000 UNVr (Lovenox) Guaifenesin 600 MG Q12 02/26 1000 UNVr (Mucinex) Vancomycin HCl 1,000 MG Q12 02/26 1000 UNir Omeprazole 40 MG DAILY AC 02/26 0700 UNVr (Prilosec) Hydrocortisone 100 MG ONE ONE 02/26 615 AC Sodium Succinate 02/27 616 (Solucortef) Sodium Chloride 500 ML .Q6H40M 02/26 615 UNir (Normal Saline 0.9%) Acetaminophen 650 MG Q6P PRN 02/26 600 UNVr (Tylenol) Acetaminophen/ 1 TAB Q6P PRN 02/26 600 UNVr Hydrocodone Bitart (Vicodin) Ceftazidime 1,000 MG Q8 02/26 600 UNVr (Fortaz) Morphine Sulfate 1 MG Q4P PRN 02/26 06 UNVr (Morphine) Laboratory Tests 02/26/175: pH 7.48 H, pCO2 31 L, pO2 77 L, HCO3 22, ABG O2 Sat (Measured) 92.0 L, P-50 (Temp Corrected) Y, Carboxyhemoglobin 0.2 L, O2 Concentration % 6 LPM, Temperature 102.0 H, O2 Delivery Method N/C, Phlebotomy Draw Site RIGHT BRACHIAL 02/26/17 031: Lactic Acid 3.0 H 02/26/17 0310: Anion Gap 12, Estimated GFR > 60, BUN/Creatinine Ratio 38.8 H, Glucose 127 H, Calcium 8.7, Magnesium 1.9, Total Bilirubin 0.8, AST 32, ALT 32, Alkaline Phosphatase 64, Troponin I 0.07, Spc-L-Faopigqjflf Pept 2870 H, Total Protein 6.2 L, Albumin 3.3 L, Globulin 2.9, Albumin/Globulin Ratio 1.1, CBC w Diff MAN DIFF ORDERED, RBC 2.98 L, MCV 114.1 H, MCH 38.0 H, RDW 21.0 H, MPV 10.5 H, Gran % 90.2 H, Lymphocytes % 8.0 L, Monocytes % 1.4 L, Eosinophils % 0.3, Basophils % 0.1, Absolute Granulocytes 21.5 H, Segmented Neutrophils 75, Band Neutrophils 15 H, Absolute Lymphocytes 1.9, Lymphocytes 7 L, Monocytes 1 L, Absolute Monocytes 0.3, Eosinophils 1, Absolute Eosinophils 0.1, Absolute Basophils 0, Metamyelocytes 1, Nucleated RBCs 1 H, Platelet Estimate ADEQUATE, Polychromasia 1+, Anisocytosis 2+, Macrocytic Cells 2+, Ovalocytes FEW, Stomatocytes FEW, PUBS MCHC 33.3, Fld Total RBCs Counted 100 Microbiology 02/26 06 STOOL: Clostridium difficile Toxin A & B - ORD 02/26 032 BLOOD: Blood Culture - RECD 02/26 310 BLOOD: Blood Culture - RECD Diagnostic Imaging: Viewed by Me: Radiology Read, CT Scan. Discussed w/RAD: Radiology Read, CT Scan. Radiology Impression: 1. Limited evaluation due to extensive respiratory motion artifact. 2. Redemonstrated regions of subpleural reticulation bilaterally, in keeping with history of underlying interstitial lung disease. 3. There are multifocal regions of consolidation, most prominently in the lower lobes. Appearance may reflect multifocal pneumonia or aspiration; a component of edema cannot be excluded in the proper clinical setting. 4. Dilated main pulmonary artery, suggesting pulmonary hypertension. CXR Impression: Redemonstrated diffuse interstitial prominence, in keeping with history of underlying chronic lung disease. A component of mild underlying interstitial edema would be difficult to exclude. No dense consolidation. Initial ED EKG: normal axis, normal intervals, normal p-waves, normal QRS complex, normal sinus rhythm, nonspecific ST T wave chg Prior EKG: unchanged Rhythm Strip: normal sinus rhythm Departure Departure Disposition: STILL A PATIENT Condition: Stable Clinical Impression Primary Impression: Pneumonia Qualifiers: Pneumonia type: due to unspecified organism Laterality: bilateral Lung location: lower lobe of lung Qualified Code: J18.9 - Pneumonia, unspecified organism Secondary Impressions: CHF (congestive heart failure) Qualifiers: Congestive heart failure type: unspecified congestive heart failure type Congestive heart failure chronicity: acute on chronic Qualified Code: I50.9 - Heart failure, unspecified Referrals: MARCELL HYMAN MD (PCP/Family) Departure Forms: Customer Survey General Discharge Information Admission Note Spoke With: SHELDON SANTOS MD Documentation of Exam: Documentation of any treatments & extenuating circumstances including Concerns Regarding Discharge (functional status, medication knowledge or non-compliance, living conditions, etc.) that warrant an admission rather than observation: Supplemental oxygen serial lab exam beta agonist nebs follow cultures medication adjustment pulmonary evaluation cardiology evaluation continuing care discharge planning Critical Care Note Critical Care Note Critical Care Time: 30-74 min (40)
--- NOTE | 2017-02-26 05:15 | NUR ---
INCONTINENT OF STOOL PERICARE PROVIDED, OLD SCARRING NOTED ON BUTTOCKS BUT NO OPEN AREAS
--- NOTE | 2017-02-26 05:15 | History & Physical ---
SADE MCRAE,[facility] 02/26/17 0515: General Information and HPI MD Statement: I have seen and personally examined MARIA ELENA NG and documented this H&P. The patient is a 76 year old F who presented with a patient stated chief complaint of [coughing, weakness and fever]. Source of Information: family, old records Exam Limitations: dementia History of Present Illness: Patient is a 76-year-old lady with PMH of dementia, end stage ILD, RA on prednisone and sarcoidosis, who is BIBA to the ED due to worsening cough and fever. Patient was discharged from [facility] one day prior to presentation. She was sent home a day prior after she was discharged from to [facility] on . She was hospitalized at [facility] prior to that with CHF exacerbation. Per the wdaqujff-gi-mye at the bedside, she had started to eat well and feel better in the rehab facility however with some coughs, since she came home she has been very drowsy and appearing tired and unable to walk with the walker due to lethargy. Later at night her zjvmtyq-op-usz noticed that the patient was making 'rattling' sound while breathing, EMS was called and patient was brought after she was found to have fever and low SO2 (reportedly in %70s) . Patient also has had chronic coughing which got worsened since yesterday, it was not accompanied by phlegm or any fever, chills, LOC, chest pain, palpitation, dizziness. Son and cjibjruy-vi-wri are at bedside and report that the patient did not have any bowel pain and changes in bowel habits, they noticed the urine was darkened. Of note, she is chronically incontinent with both urine and stool and has had loose stools. Patient follows up with regarding her ILD. Allergies/Medications Allergies: Coded Allergies: shellfish derived (Intermediate, SWELLING 01/29/17) Sulfa (Sulfonamide Antibiotics) (HIVES 01/29/17) iodamide (UNKNOWN 01/29/17) Home Med list Calcium Carbonate/Vitamin D3 (Calcium 500 + D Tablet) 500 MG-400 TABLET 1 TAB PO DAILY supplement Cholecalciferol (Vitamin D3) 1,000 UNIT TABLET 2,000 IU PO DAILY Supplement Furosemide 20 MG TABLET 20 MG PO DAILY DIURETIC Omeprazole 20 MG CAPSULE.DR 40 MG PO DAILY AC GI PPX Prednisone 10 MG TABLET 10 MG PO DAILY RA Past History Travel History Traveled to [place] past 21 day No Medical History Neurological: dementia EENT: NONE Cardiovascular: myocardial infarction Respiratory: interstitial lung disease, sarcoidosis Gastrointestinal: achalasia Hepatic: NONE Renal: NONE Musculoskeletal: rheumatoid arthritis Psychiatric: NONE Endocrine: NONE History of MRSA: No History of VRE: No History of CDIFF: No Surgical History Surgical History: non-contributory Past Family/Social History Psychosocial History Who Do You Live With? child Services at Home: None Review of Systems Review of Systems Constitutional: Denies: chills, fever, malaise, weakness. EENTM: Reports: no symptoms. Cardiovascular: Denies: chest pain, palpitations, syncope. Respiratory: Reports: cough, short of breath. Denies: sputum production, wheezing. GI: Reports: diarrhea (chronic loose stools), bowel incontinence. Denies: abdominal pain. Genitourinary: Reports: no symptoms (incontinence). Musculoskeletal: Reports: no symptoms. Skin: Reports: rash. Neurological/Psychological: Reports: dementia, weakness (generalized). Denies: headache. Hematologic/Endocrine: Reports: no symptoms. Immunologic/Allergic: Reports: no symptoms. Exam & Diagnostic Data Last 24 Hrs of Vital Signs/I&O Vital Signs Date Time Temp Pulse Resp B/P B/P Pulse O2 O2 Flow FiO2 Mean Ox Delivery Rate 02/26 0830 97.7 02/26 0829 97.7 80 22 86/42 96 Nasal 2.0L Cannula 02/26 0728 93 80/42 02/26 0654 92/50 02/26 0624 98.6 94 22 82/60 97 Nasal 3.0L Cannula 02/26 0535 100.8 112 22 84/50 94 Nasal 3.0L Cannula 02/26 0337 88 Nasal 4.0L Cannula 02/26 0239 91 Nasal 2.0L Cannula 02/26 0233 102.0 119 20 120/56 92 Nasal 3.0L Cannula Intake & Output 02/26 1600 02/26 0800 02/26 0000 Intake Total Output Total Balance Patient 45.558 kg Weight Physical Exam General Appearance Alert, Oriented X3, Cooperative, Mild Distress Skin scatterd erythematous and discoid lesions in the back 2x2 cm size in the lower back, non-itchy and not painful. chronic, biopsied and was reproted to be of autoimmune etiology. Skin Temp/Moisture Exam: Warm/Dry Sepsis Skin Exam (color): Normal for Ethnicity HEENT Atraumatic, EOMI, Mucous Membr. moist/pink, pupils round and equal, reactive to light. Neck Supple Cardiovascular Normal S1, Normal S2, 5/6 systolic murmur heard at aortic area, LSB and apex Lungs coarse crackled and rhonchi bilaterally Abdomen Normal Bowel Sounds, Soft, No Tenderness Neurological Normal Speech, Strength at 5/5 X4 Ext, Normal Tone, Sensation Intact, Cranial Nerves 3-12 NL Extremities No Edema, Normal Pulses, No Tenderness/Swelling Vascular Pulses Symmetrical Sepsis Peripheral Pulse Location: Dorsalis Pedis Sepsis Peripheral Pulse Exam: Normal Sepsis Cap Refill Exam: <2 Sec Last 24 Hrs of Labs/Carlos: Laboratory Tests 02/26/17 0623: Lactic Acid 1.3 02/26/17 0415: pH 7.48 H, pCO2 31 L, pO2 77 L, HCO3 22, ABG O2 Sat (Measured) 92.0 L, P-50 (Temp Corrected) Y, Carboxyhemoglobin 0.2 L, O2 Concentration % 6 LPM, Temperature 102.0 H, O2 Delivery Method N/C, Phlebotomy Draw Site RIGHT BRACHIAL 02/26/17 0310: Lactic Acid 3.0 H 02/26/17 0310: Anion Gap 12, Estimated GFR > 60, BUN/Creatinine Ratio 38.8 H, Glucose 127 H, Calcium 8.7, Magnesium 1.9, Total Bilirubin 0.8, AST 32, ALT 32, Alkaline Phosphatase 64, Troponin I 0.07, Xqm-F-Zuzqssptboi Pept 2870 H, Total Protein 6.2 L, Albumin 3.3 L, Globulin 2.9, Albumin/Globulin Ratio 1.1, CBC w Diff MAN DIFF ORDERED, RBC 2.98 L, MCV 114.1 H, MCH 38.0 H, RDW 21.0 H, MPV 10.5 H, Gran % 90.2 H, Lymphocytes % 8.0 L, Monocytes % 1.4 L, Eosinophils % 0.3, Basophils % 0.1, Absolute Granulocytes 21.5 H, Segmented Neutrophils 75, Band Neutrophils 15 H, Absolute Lymphocytes 1.9, Lymphocytes 7 L, Monocytes 1 L, Absolute Monocytes 0.3, Eosinophils 1, Absolute Eosinophils 0.1, Absolute Basophils 0, Metamyelocytes 1, Nucleated RBCs 1 H, Platelet Estimate ADEQUATE, Polychromasia 1+, Anisocytosis 2+, Macrocytic Cells 2+, Ovalocytes FEW, Stomatocytes FEW, PUBS MCHC 33.3, Fld Total RBCs Counted 100 Microbiology 02/26 0600 STOOL: Clostridium difficile Toxin A & B - ORD 02/26 0320 BLOOD: Blood Culture - RECD 02/26 0310 BLOOD: Blood Culture - RECD Diagnostic Data EKG Results rate 115, sinus rhythm, KS 160, QTC 437 CXR Results SERVICE DATE: 02/26/17 EXAM TYPE: RAD - XRY-PORTABLE CHEST XRAY EXAMINATION: XR PORTABLE CHEST CLINICAL INFORMATION: History of interstitial lung disease, volume overload with cough, shortness of breath, rhonchi, wheeze COMPARISON: 02/19/2017 TECHNIQUE: Portable frontal view of the chest was obtained. FINDINGS: Lung volumes are symmetric. There is diffuse interstitial prominence which appears similar to prior. No definite acute consolidation is seen. No evidence of pneumothorax or pleural effusion. The cardiomediastinal silhouette is stable. No acute osseous findings are seen. IMPRESSION: Redemonstrated diffuse interstitial prominence, in keeping with history of underlying chronic lung disease. A component of mild underlying interstitial edema would be difficult to exclude. No dense consolidation. DICTATED BY: ALISE WAYNE MD DATE/TIME DICTATED:02/26/17356 SUPERVISOR BRAKE REPAIR:[place] DATE/TIME TRANSCRIBED:02/26/17356 Other Results SERVICE DATE: 02/26/17 EXAM TYPE: CAT - CT CHEST WO IV CONTRAST EXAMINATION: CT CHEST WITHOUT CONTRAST CLINICAL INFORMATION: History of interstitial lung disease, CHF COMPARISON: 01/29/2017 TECHNIQUE: Multidetector volumetric CT imaging of the chest was done. Axial MIP volume rendering provided. Sagittal and coronal reformatted images were obtained. DLP: 206.73 mGy-cm FINDINGS: LUNGS: Assessment is limited due to extensive respiratory motion artifact. There is redemonstrated subpleural reticulation bilaterally, likely sequelae of interstitial lung disease. There are multifocal regions of consolidation in the lungs including in the bilateral lower lobes, right middle lobe, and right upper lobe which appear new from prior. MEDIASTINUM: No definite mediastinal lymphadenopathy is seen, though assessment is limited for this in the absence of intravenous contrast. Cardiac size is mildly prominent. No significant pericardial effusion. There is atherosclerotic calcification along the aorta. The main pulmonary artery appears dilated. PLEURA: No pneumothorax or pleural effusions. Scattered pleural calcifications are noted bilaterally. AXILLA: No lymphadenopathy. UPPER ABDOMEN: Punctate calcifications in the liver favor granulomas. OSSEOUS STRUCTURES: Degenerative changes are noted in the spine, without significant change from prior. IMPRESSION: 1. Limited evaluation due to extensive respiratory motion artifact. 2. Redemonstrated regions of subpleural reticulation bilaterally, in keeping with history of underlying interstitial lung disease. 3. There are multifocal regions of consolidation, most prominently in the lower lobes. Appearance may reflect multifocal pneumonia or aspiration; a component of edema cannot be excluded in the proper clinical setting. 4. Dilated main pulmonary artery, suggesting pulmonary hypertension. DICTATED BY: ALISE WAYNE MD DATE/TIME DICTATED:02/26/17527 SUPERVISOR BRAKE REPAIR:[place] DATE/TIME TRANSCRIBED:02/26/17527 Assessment/Plan Assessment: Patient is a 76-year-old lady with PMH of dementia, end stage ILD, RA on prednisone, and sarcoidosis, who is BIBA to the ED due to worsening cough and fever. Problem list and plan: 1. Severe sepsis most likely due to healthcare associated pneumonia * monitor vital signs every shift * gentle hydration with IV NS at 75 cc/hour * repeat lactic acid * continue IV ceftazidime and vancomycin * follow up BCx2 * sent UC will follow up * Mucinex to help bring up phlegm * ordered lower respiratory culture, will follow up 2. End stage ILD * SO2 96% on 2L O2 per NC * continue O2 suppl as needed to keep SO2>92% * pulmonary consult with Dr. Yuan in am * TRC/Nebs as needed 3. CHF and hypotension * Lasix on hold due to low BP * 1000 cc total of bolus NS, then reassess the patient * continue to monitor I's and O's while on fluids * monitor BP * consult cardiology, Dr. Chen in am 4. history if RA * on chronic prednisone 10 mg daily 5. Discoid rash on the lower back - subsided * etiology reported to be autoimmune per the family * not symptomatic * wound care evaluation * Gave stress dose of hydrocortisone 6. Macrocytic anemia * chronic and stable * consider checking B12 and Folate DVT px with SC lovenox Swallow evaluation in am DNR/DNI As Ranked By This Provider Problem List: 1. Dementia 2. GERD 3. Interstitial lung disease 4. Pneumonia Qualifiers Pneumonia type: due to unspecified organism Laterality: bilateral Lung location : lower lobe of lung Qualified Code: J18.9 - Pneumonia, unspecified organism 5. CHF (congestive heart failure) Qualifiers Congestive heart failure type: unspecified congestive heart failure type Congestive heart failure chronicity: acute on chronic Qualified Code: I50.9 - Heart failure, unspecified Core Measures/Miscellaneous Acute Coronary Syndrome ACS Diagnosis: No Cerebrovascular Accident CVA/TIA Diagnosis: No Congestive Heart Failure CHF Diagnosis: Yes Date of most recent Echo: 01/31/17 Last Known EF %: 65 VTE (View Protocol) VTE Risk Factors: Acute medical illness, Age > 40 No [facility] VTE prophylaxis d/t: VTE low risk, No contraindications No VTE Pharm Prophylaxis d/t: VTE low risk, No contraindications VTE Diagnosis: No VTE Type: NONE VTE Confirmed by (Test): NONE Sepsis (View Protocol) Severe Sepsis Present: Yes BC x2: Yes Lactic Acid x2: Yes IV ABX Broad Spectrum: Yes NS/LR Started: Yes Septic Shock Septic Shock Present: No Miscellaneous Documentation Attending Case Discussed With: SHELDON SANTOS MD Primary Care Physician: MARCELL HYMAN MD Patient sees these Specialists Dr. Yuan, pulmonary Level of Patient Care: Critical Care (CRI) SHELDON SANTOS 02/26/17 0642: Attending Review Statement Attending Statement Attending Statement: examined this patient, discuss w/resident/PA/INTEGRATION ENGINEER, agreed w/resident/PA/INTEGRATION ENGINEER, discussed with family, reviewed EMR data (avail), reviewed images, amended to note Attending Assessment/Plan: CC: Fever, worsening of shortness of breath, new onset cough PMH: RA, ? hx sarcoidosis , ILD, dementia, on chronic prednisone, history of achalasia with swallowing difficulty, heart failure systolic and diastolic, autoimmune skin condition Patient was recently discharged on February 03 for combination of exacerbation of lung disease, heart failure, was discharged to SNF. Patient followed up with Dr. Yuan outpatient and was suggested to continue oxygen at nighttime patient was discharged from SNF 1 day back. She was weaned off oxygen 3 days back. Son started to notice cough when patient was at SNF. After coming home patient spiked fever, and her breathing was getting progressively worse so they brought her to ER. Vitals: T max 102, HR 119, RR 20, blood pressure 120/56, saturating saturating 91% on 3 L NC On exam: Cachectic, respiratory distress, accessory muscles in use, responds appropriately, oriented to time and person, RS: Coarse crackles bilaterally. CVS : systolic murmur in aortic area, diastolic murmur in mitral area, S1-S2, tachycardia. Abdomen: Soft, NT, ND, bowel sounds present. No dependent edema, peripheral pulses perfusion normal, follows instructions, no focal neurological deficit Labs: WBC 23.9, neutrophils 90%, band 15 hemoglobin 11.3, hematocrit 34.0, platelet 184, sodium 142, potassium 3.7, chloride 106, bicarbonate 23, anion gap 12, BUN 31, creatinine 0.8, glucose 127, lactate 3.0, proBNP 2870, AB.48/31/77/22 on 6 L CXR: Redemonstrated diffuse interstitial prominence, in keeping with history of underlying chronic lung disease. A component of mild underlying interstitial edema would be difficult to exclude. No dense consolidation. CT chest : 1. Limited evaluation due to extensive respiratory motion artifact. 2. Redemonstrated regions of subpleural reticulation bilaterally, in keeping with history of underlying interstitial lung disease. 3. There are multifocal regions of consolidation, most prominently in the lower lobes. Appearance may reflect multifocal pneumonia or aspiration; a component of edema cannot be excluded in the proper clinical setting. 4. Dilated main pulmonary artery, suggesting pulmonary hypertension. A and P 76-year-old female with extensive underlying lung disease and valvular heart disease with diastolic heart failure came back to ER with increased shortness of breath, worse cough, fever. Patient has t max of 102 in ER. She is hemodynamically stable initially but requiring high oxygen levels. Coarse crackles bilaterally, difficult to assess additional sounds given this background. She also has elevated WBC count with left shift. Even though chest x -ray does not mention new infiltrate, I reviewed the films and it appears that she may have new infiltrate left lung base. So CT chest was obtained which shows probable multifocal pneumonia. With recent healthcare exposure, suspect healthcare associated pneumonia. Lactic acid is elevated but hypoxia may be contribution into it, given her underlying heart failure, there is a critical fluid balance for IV hydration. Later on after receiving first dose of antibiotic patient's blood pressure dropped in the ER up to 80 systolic, peripheral pulses and perfusion still intact, mentating well. She was started on first liter IV bolus but again her fluid balances critical and can tolerate limited fluid challenge so possibility of central line was discussed with family. They are clear about DO NOT RESUSCITATE and DO NOT INTUBATE but have not clarified about central line yet. We will give fluid challenge, admit to ICU, central line and pressors if family decides. Consult Yomi Yuan MD. Critical nature of the illness is discussed with family + HCAP + Sepsis + Hypotension + Acute on chronic hypoxic respiratory failure: Multifactorial + ILD + Diastolic heart failure + Microcytic anemia + Respiratory alkalosis + Sinus tachycardia - Admit to ICU - Continue normal saline bolus - Watch for respiratory status - re- evaluate after first liter bolus if patient responding then repeat 500 mL bolus, if still persistently hypotensive, re-address central line and pressors - Consult Yomi Yuan MD - Strict I's and O's - TRC, scheduled and when necessary albuterol nebulization - Continue vancomycin and Ceftazidime - Stress dose of hydrocortisone, (patient chronically on prednisone) - Blood culture, UA urine culture - Wound care consult for rash on back - Swallow evaluation - Consult cardiology in a.m. - DVT prophylaxis with heparin TTS 40 min JUDY VELASCO 02/27/171935: Resident Review Statement Resident Statement: examined this patient, discussed with video intern, agreed with video intern Other Findings: 76-year-old female with terminal lung disease and valvular heart disease with diastolic heart failure came back to ER with increased shortness of breath, worse cough, fever, CT findings suggestive of pneumonia, recently discharged from [facility], to be admitted to ICU for severe sepsis secondary to HCAP. Goals of care discussed in detail with patient's son. Dr. Yuan aware. Treat for HCAP. Continue steroids. Bolus 500 x2. Cardio consult. H/o achlasia, rule out aspiration risk with swallow eval. DNR/DNI.
--- NOTE | 2017-02-26 05:35 | NUR ---
JOHN WITH PT AWARE B/P 84/50 N/S HUNG
--- NOTE | 2017-02-26 05:41 | CT SCAN REPORT ---
EXAMINATION: CT CHEST WITHOUT CONTRAST CLINICAL INFORMATION: History of interstitial lung disease, CHF COMPARISON: 01/29/2017 TECHNIQUE: Multidetector volumetric CT imaging of the chest was done. Axial MIP volume rendering provided. Sagittal and coronal reformatted images were obtained. DLP: 206.73 mGy-cm FINDINGS: LUNGS: Assessment is limited due to extensive respiratory motion artifact. There is redemonstrated subpleural reticulation bilaterally, likely sequelae of interstitial lung disease. There are multifocal regions of consolidation in the lungs including in the bilateral lower lobes, right middle lobe, and right upper lobe which appear new from prior. MEDIASTINUM: No definite mediastinal lymphadenopathy is seen, though assessment is limited for this in the absence of intravenous contrast. Cardiac size is mildly prominent. No significant pericardial effusion. There is atherosclerotic calcification along the aorta. The main pulmonary artery appears dilated. PLEURA: No pneumothorax or pleural effusions. Scattered pleural calcifications are noted bilaterally. AXILLA: No lymphadenopathy. UPPER ABDOMEN: Punctate calcifications in the liver favor granulomas. OSSEOUS STRUCTURES: Degenerative changes are noted in the spine, without significant change from prior. IMPRESSION: 1. Limited evaluation due to extensive respiratory motion artifact. 2. Redemonstrated regions of subpleural reticulation bilaterally, in keeping with history of underlying interstitial lung disease. 3. There are multifocal regions of consolidation, most prominently in the lower lobes. Appearance may reflect multifocal pneumonia or aspiration; a component of edema cannot be excluded in the proper clinical setting. 4. Dilated main pulmonary artery, suggesting pulmonary hypertension.
--- NOTE | 2017-02-26 06:23 | NUR ---
DR [place] HERE TO SPEAK WITH FAMILY ABOUT POC ? CENTRAL LINE PLACEMENT
--- NOTE | 2017-02-26 06:45 | Admission Certification ---
Admission Certification Certification Statement - As attending physician, I certify that at the time of - admission, based on clinical presentation, severity of - symptoms, need for further diagnostic testing and - therapeutic interventions, and risk of adverse outcomes - without in-hospital treatment, in my clinical assessment, - this patient requires an acute hospital stay for a minimum - of two nights or longer. I have also considered psychsocial - factors such as support system, advanced age, financial - issues, cognitive issues, and failed out-patient treatments, - past re-admission history, safety of patient, and lack of - compliance as applicable. Specific rationale supporting this admission is: Pneumonia, sepsis, acute hypoxic respiratory failure
--- NOTE | 2017-02-26 06:55 | NUR ---
SOLUCORTEF GIVEN ORDERED B/P AFTER 1 LITER N/S DR AUGUSTIN SPEAKING WITH FAMILY ABOUT POC
--- NOTE | 2017-02-26 07:27 | NUR ---
ASSUMED CARE OF PT WHO IS A&O X 2. FAMILY AT BEDSIDE. CURRENT BP 80/42 MANUALLY. HOUSESTAFF AT BEDSIDE FOR EVALUATION
--- NOTE | 2017-02-26 07:58 | Cons- CRCU ---
SCARLET MCRAE,MARILEE 02/26/17 0758: General Information and HPI Allergies/Medications Allergies: Coded Allergies: shellfish derived (Intermediate, SWELLING 01/29/17) Sulfa (Sulfonamide Antibiotics) (HIVES 01/29/17) iodamide (UNKNOWN 01/29/17) Home Med List: Calcium Carbonate/Vitamin D3 (Calcium 500 + D Tablet) 500 MG-400 TABLET 1 TAB PO DAILY supplement Cholecalciferol (Vitamin D3) 1,000 UNIT TABLET 2,000 IU PO DAILY Supplement Furosemide 20 MG TABLET 20 MG PO DAILY DIURETIC Omeprazole 20 MG CAPSULE.DR 40 MG PO DAILY AC GI PPX Prednisone 10 MG TABLET 10 MG PO DAILY RA Past History Travel History Traveled to [place] past 21 day No Medical History Neurological: dementia EENT: NONE Cardiovascular: myocardial infarction Respiratory: interstitial lung disease, sarcoidosis Gastrointestinal: achalasia Hepatic: NONE Renal: NONE Musculoskeletal: rheumatoid arthritis Psychiatric: NONE Endocrine: NONE Surgical History Surgical History: non-contributory Psychosocial History Who Do You Live With? child Services at Home: None Assessment/Plan Consult Acknowledgment - Thank you for your consult request. FADIA BERGERON 02/26/17 1041: Assessment/Plan Consult Acknowledgment - Thank you for your consult request.
--- NOTE | 2017-02-26 08:29 | NUR ---
PT CURRENTLY SLEEPING. RR ROXANA AND UNLABORED.
--- NOTE | 2017-02-26 09:53 | NUR ---
PT HAS BED ASSIGNMENT 111. RN NOTIFIED.
--- NOTE | 2017-02-26 10:39 | NUR ---
PT INCONTINENT OF LARGE BROWN SOFT STOOL. LINEN CHANGED, BARRY CARE PROVIDED. PT REFUSES RIVERA OR STRAIGHT CATHETER. BED NOT NOTED TO BE WET WITH URINE. PT OFFERED BEDPAN FOR URINE SPECIMEN AND REFUSED IT. FAMILY AT BEDSIDE. SMALL RED ESQUEDA NOTED TO LOWER BACK AND BUTTOCKS IS REDDENED BUT NOT OPEN AREAS NOTED
--- NOTE | 2017-02-26 10:39 | NUR ---
PT HAS HX OF AUTO IMMUNE SKIN PROBLEM WHICH CAUSES THE RED BLOTCHES ON BACK
--- NOTE | 2017-02-26 10:46 | NUR ---
UNABLE TO TAKE REPORT PER ICU
--- NOTE | 2017-02-26 11:45 | NUR ---
REPORT RECEIVED ON PT AND RN CARE ASSUMED RE-ASSESSMENT PERFORMED, PT OFFERING NO COMPLAINTS AT THIS TIME. RESP RATE 24, O2 SATS 95% ON 3L O2. NO C/O PAIN FAMILY AT BEDSIDE
--- NOTE | 2017-02-26 12:30 | Event Note ---
Event Note Event Note: Situation: Goals of Care Dr Yuan spoke with family who wishes no Central line placement. Family would like to pursue gentle hydration for now. CODE Status :DNRI/DNI. Also regarding her BP, can allow SBP of 80-90, No need to activate Rapid Response.
--- NOTE | 2017-02-26 13:16 | NUR ---
PT ADMITTED TO [facility], BED 180-1. ORAL REPORT GIVEN TO YANETH CHARLES
--- NOTE | 2017-02-26 13:53 | Cons- Pulmonary ---
General Information and HPI Consulting Request Date of Consult: 02/26/17 Requested By: med team History of Present Illness: Patient is a 76-year-old lady with PMH of dementia, end stage ILD, RA on prednisone and sarcoidosis, who is BIBA to the ED due to worsening cough and fever. Patient was discharged from [facility] one day prior to presentation. She was sent home a day prior after she was discharged from to [facility] on . She was hospitalized at [place] prior to that with CHF exacerbation. Per the [id number]-vk-hlh at the bedside, she had started to eat well and feel better in the rehab facility however with some coughs, since she came home she has been very drowsy and appearing tired and unable to walk with the walker due to lethargy. Later at night her wqlwygi-ec-iot noticed that the patient was making 'rattling' sound while breathing, EMS was called and patient was brought after she was found to have fever and low SO2 (reportedly in %70s) . Patient also has had chronic coughing which got worsened since yesterday, it was not accompanied by phlegm or any fever, chills, LOC, chest pain, palpitation, dizziness. Son and uyuxrynt-yl-qvl are at bedside and report that the patient did not have any bowel pain and changes in bowel habits, they noticed the urine was darkened. Of note, she is chronically incontinent with both urine and stool and has had loose stools. Review of Systems Constitutional: Denies: chills, fever, malaise, weakness. EENTM: Reports: no symptoms. Cardiovascular: Denies: chest pain, palpitations, syncope. Respiratory: Reports: cough, short of breath. Denies: sputum production, wheezing. GI: Reports: diarrhea (chronic loose stools), bowel incontinence. Denies: abdominal pain. Genitourinary: Reports: no symptoms (incontinence). Musculoskeletal: Reports: no symptoms. Skin: Reports: rash. Neurological/Psychological: Reports: dementia, weakness (generalized). Denies: headache. Hematologic/Endocrine: Reports: no symptoms. Immunologic/Allergic: Reports: no symptoms. Allergies/Medications Allergies: Coded Allergies: shellfish derived (Intermediate, SWELLING 01/29/17) Sulfa (Sulfonamide Antibiotics) (HIVES 01/29/17) iodamide (UNKNOWN 01/29/17) Home Med List: Calcium Carbonate/Vitamin D3 (Calcium 500 + D Tablet) 500 MG-400 TABLET 1 TAB PO DAILY supplement Cholecalciferol (Vitamin D3) 1,000 UNIT TABLET 2,000 IU PO DAILY Supplement Furosemide 20 MG TABLET 20 MG PO DAILY DIURETIC Omeprazole 20 MG CAPSULE.DR 40 MG PO DAILY AC GI PPX Prednisone 10 MG TABLET 10 MG PO DAILY RA Review of Systems Review of Systems Constitutional: Reports: see HPI. Past History Travel History Traveled to [place] past 21 day No Medical History Neurological: dementia EENT: NONE Cardiovascular: myocardial infarction Respiratory: interstitial lung disease, sarcoidosis Gastrointestinal: achalasia Hepatic: NONE Renal: NONE Musculoskeletal: rheumatoid arthritis Psychiatric: NONE Endocrine: NONE Surgical History Surgical History: non-contributory Psychosocial History Who Do You Live With? child Services at Home: None Exam & Diagnostic Data Last 24 Hrs of Vital Signs/I&O Vital Signs Date Time Temp Pulse Resp B/P B/P Pulse O2 O2 Flow FiO2 Mean Ox Delivery Rate 02/26 1301 75 23 82/44 98 Nasal 3.0L Cannula 02/26 1230 96.6 73 24 72/40 95 Nasal 3.0L Cannula 02/26 1156 97.0 78 26 82/52 96 Nasal 3.0L Cannula 02/26 1041 98.1 78 20 90/40 96 Nasal 3.0L Cannula 02/26 0916 97.8 77 22 84/40 96 02/26 0830 97.7 02/26 0829 97.7 80 22 86/42 96 Nasal 2.0L Cannula 02/26 0728 93 80/42 02/26 0654 92/50 02/26 0624 98.6 94 22 82/60 97 Nasal 3.0L Cannula 02/26 0535 100.8 112 22 84/50 94 Nasal 3.0L Cannula 02/26 0337 88 Nasal 4.0L Cannula 02/26 0239 91 Nasal 2.0L Cannula 02/26 0233 102.0 119 20 120/56 92 Nasal 3.0L Cannula Intake & Output 02/26 1600 02/26 0800 02/26 0000 Intake Total Output Total Balance Patient 100 lb Weight Last 48 Hrs of Labs/Carlos: Laboratory Tests 02/26/17 0623: Lactic Acid 1.3 02/26/17 0415: pH 7.48 H, pCO2 31 L, pO2 77 L, HCO3 22, ABG O2 Sat (Measured) 92.0 L, P-50 (Temp Corrected) Y, Carboxyhemoglobin 0.2 L, O2 Concentration % 6 LPM, Temperature 102.0 H, O2 Delivery Method N/C, Phlebotomy Draw Site RIGHT BRACHIAL 02/26/17309: Lactic Acid 3.0 H 02/26/17 031: Anion Gap 12, Estimated GFR > 60, BUN/Creatinine Ratio 38.8 H, Glucose 127 H, Calcium 8.7, Magnesium 1.9, Total Bilirubin 0.8, AST 32, ALT 32, Alkaline Phosphatase 64, Troponin I 0.07, Epq-I-Hisoygelcym Pept 2870 H, Total Protein 6.2 L, Albumin 3.3 L, Globulin 2.9, Albumin/Globulin Ratio 1.1, CBC w Diff MAN DIFF ORDERED, RBC 2.98 L, MCV 114.1 H, MCH 38.0 H, RDW 21.0 H, MPV 10.5 H, Gran % 90.2 H, Lymphocytes % 8.0 L, Monocytes % 1.4 L, Eosinophils % 0.3, Basophils % 0.1, Absolute Granulocytes 21.5 H, Segmented Neutrophils 75, Band Neutrophils 15 H, Absolute Lymphocytes 1.9, Lymphocytes 7 L, Monocytes 1 L, Absolute Monocytes 0.3, Eosinophils 1, Absolute Eosinophils 0.1, Absolute Basophils 0, Metamyelocytes 1, Nucleated RBCs 1 H, Platelet Estimate ADEQUATE, Polychromasia 1+, Anisocytosis 2+, Macrocytic Cells 2+, Ovalocytes FEW, Stomatocytes FEW, PUBS MCHC 33.3, Fld Total RBCs Counted 100 Assessment/Plan Impression/Plan: Physical Exam General Appearance Alert, Oriented X3, Cooperative, Mild Distress Skin scatterd erythematous and discoid lesions in the back 2x2 cm size in the lower back, non-itchy and not painful. chronic, biopsied and was reproted to be of autoimmune etiology. Skin Temp/Moisture Exam: Warm/Dry Sepsis Skin Exam (color): Normal for Ethnicity HEENT Atraumatic, EOMI, Mucous Membr. moist/pink, pupils round and equal, reactive to light. Neck Supple Cardiovascular Normal S1, Normal S2, 5/6 systolic murmur heard at aortic area, LSB and apex Lungs coarse crackled and rhonchi bilaterally Abdomen Normal Bowel Sounds, Soft, No Tenderness Neurological Normal Speech, Strength at 5/5 X4 Ext, Normal Tone, Sensation Intact, Cranial Nerves 3-12 NL Extremities No Edema, Normal Pulses, No Tenderness/Swelling Vascular Pulses Symmetrical ct chest reviewed IMPRESSION: 1. Limited evaluation due to extensive respiratory motion artifact. 2. Redemonstrated regions of subpleural reticulation bilaterally, in keeping with history of underlying interstitial lung disease. 3. There are multifocal regions of consolidation, most prominently in the lower lobes. Appearance may reflect multifocal pneumonia or aspiration; a component of edema cannot be excluded in the proper clinical setting. 4. Dilated main pulmonary artery, suggesting pulmonary hypertension. DICTATED BY: ALISE WAYNE MD DATE/TIME DICTATED:02/26/17527 IMPRESSION This is an elderly lady with the previous history of rheumatoid arthritis, previous methotrexate use, previous achalasia with recurrent GERD, worsening dementia, systolic ejection murmur, significant diastolic heart disease, severe preterminal ipf, diastolic heart, achalasia, has the following issue * Acute hypoxic resp failure due to bilateral pna prob aspiration vs HCAP with progressive pulm failure * Sepsis with hypotension due to pna and IPF with resp failure * Worsening Significant pulmonary fibrosis which seems to be present for many years with multiple etiologies - which include rheumatoid arthritis causing ILD, previous methotrexate which may have induced ILD versus achalasia cardia with recurrent GERD. She also has had multiple autoimmune issues which include rheumatoid and recent skin issues which could be an inciting factor aswell. There is some mention of sarcoidosis in her history but she's never had a biopsy that I can see. * Significant achalasia with recurrent regurg, may be the cause of her pna * Rheumatoid arthritis and recent autoimmune skin disease, was on 10 mg of prednisone * Echocardiogram suggestive of small left ventricular cavity with stage I diastolic dysfunction with mild increase resting left ventricular outflow tract velocity with aortic stenosis with a sig murmur - with chf in the past with diastolic heart dx with high risk for pulm edema * Mild pulmonary hypertension with estimated PA pressure of 25 and echocardiogram * SIg macrocytosis and cbc highly suggestive of myelodysplasia * Sig RA REC Iv abx vanco ceftaz and flagyl IV steroids hydrocortizone for today and solumedrol 40 from am Can change abx to unasyn if cultures are neg sputum culture ivf gentle IV lasix if pulm edema ensues IV ppi stool for cdiff Discussed with family in detail they do not want any escalation of rx ie. no TLC , NO Vasopressors, No dialysis, NO BIPAP, No icu Ok with high flow if needed Ok to cont all meds IF worse comfort and transition to hospice Will follow Consult Acknowledgment - Thank you for your consult request.
--- NOTE | 2017-02-26 13:59 | NUR ---
TRANSPORTATION BOOKED
--- NOTE | 2017-02-26 16:18 | Event Note ---
Event Note Event Note: Patient is seen and examined at the bedside. She was responding to verbal commands. Discussed with the family in detail , including the son, Mister Laguna (POA). According to them, they do not want any heroic measure including central line, pressors, and they are thinking that if patient deteriorated than they will reconsider for the CODE STATUS to comfort measure. Family also requesting to avoid talking in front of the patient, as she become very anxious about her disease. Discussed with Dr. Lopez, will start patient on inj hydrocortisone 100 mgs IV 8 hourly for today and change it to 50 mgs IV 8 hourly tomorrow. Will do Hartmann catheterization for strict intake output charting. Discussed with Dr. Maddox over the phone, he will come and see the patient.
--- NOTE | 2017-02-26 16:23 | PN- Att Addend ---
Attending Addendum Attending Brief Note d/w pts family the care plan. pt is DNR/DNI, they do not want central line or vasopressors. Cont pt on iv hydrocortisone for stress dose steroids alongwith iv fluids and abx for HCAP. Pulmonolgy f/u appreciated Family says if her condition deteriorates they want to make her comfort care.
[2017-02-26 16:46] VITALS: BP 92/50
--- NOTE | 2017-02-26 21:00 | Cons- Cardiology ---
General Information and HPI Consulting Request Date of Consult: 02/26/17 Requested By: SHELDON SANTOS MD History of Present Illness: This patient is a 76 year old female with history of interstitial lung disease and sardoidosis who was sent to the ER for evaluation of a cough accompanied by fever and a rattling sound when breathing. The patient was tired and was unable to walk with a walker. She was mildly tachycardic but denies any other symptoms of chest pain, pressure, tightness, lightheadedness or palpitations. At rest she has no shortness of breath. Her O2 saturation was reportedly low in the 70's. Allergies/Medications Allergies: Coded Allergies: shellfish derived (Intermediate, SWELLING 01/29/17) Sulfa (Sulfonamide Antibiotics) (HIVES 01/29/17) iodamide (UNKNOWN 01/29/17) Home Med List: Calcium Carbonate/Vitamin D3 (Calcium 500 + D Tablet) 500 MG-400 TABLET 1 TAB PO DAILY supplement Cholecalciferol (Vitamin D3) 1,000 UNIT TABLET 2,000 IU PO DAILY Supplement Furosemide 20 MG TABLET 20 MG PO DAILY DIURETIC Omeprazole 20 MG CAPSULE.DR 40 MG PO DAILY AC GI PPX Prednisone 10 MG TABLET 10 MG PO DAILY RA Review of Systems Review of Systems: A twelve point review of systems is remarkable for rheumatoid arthritis. 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 Home Who Do You Live With? child Services at Home: None Smoking Status: Unknown If Ever Smoked Exam & Diagnostic Data Vital Signs and I&O Vital Signs Date Time Temp Pulse Resp B/P B/P Pulse O2 O2 Flow FiO2 Mean Ox Delivery Rate 02/26 1908 Nasal 3.0L Cannula 02/26 1800 Nasal 3.0L Cannula 02/26 1646 97.8 78 20 92/50 97 Nasal 3.0L Cannula 02/26 1301 75 23 82/44 98 Nasal 3.0L Cannula 02/26 1230 96.6 73 24 72/40 95 Nasal 3.0L Cannula 02/26 1156 97.0 78 26 82/52 96 Nasal 3.0L Cannula 02/26 1041 98.1 78 20 90/40 96 Nasal 3.0L Cannula 02/26 0916 97.8 77 22 84/40 96 02/26 0830 97.7 02/26 0829 97.7 80 22 86/42 96 Nasal 2.0L Cannula 02/26 0728 93 80/42 / 0654 92/50 02/26 0624 98.6 94 22 82/60 97 Nasal 3.0L Cannula 02/26 0535 100.8 112 22 84/50 94 Nasal 3.0L Cannula 02/26 0337 88 Nasal 4.0L Cannula 02/26 0239 91 Nasal 2.0L Cannula 02/26 0233 102.0 119 20 120/56 92 Nasal 3.0L Cannula Intake & Output 02/26 1600 16 0800 16 0000 / 1600 02/25 0800 02/25 0000 Intake Total Output Total Balance Patient 100 lb Weight Physical Exam: General: WD/ WN female in NAD; awake and responsive HEENT: NC/AT, PERRL, EOMI Neck: no JVD, no carotid bruit Heart: RRR with 3/6 systolic murmur Lungs: dry crackles bilaterally Abdomen: soft, NT, +ve bowel sounds Extremities: no edema Assessment/Plan Assessment/Plan * There is no evidence of decompensated CHF at this time. I suspect her cough, fever and increased WBC count is related to pneumonia superimposed on her intersitial lung disease. She does have a murmur of a LV outflow tract obstuction. I would be careful not to overdiurese her as this will make the obstruction more severe. Consult Acknowledgment - Thank you for your consult request.
[2017-02-26 23:37] VITALS: BP 92/48
--- NOTE | 2017-02-27 07:25 | PN- Housestaff ---
JEFFERY MCRAE,[facility] 02/27/17 0725: Subjective Follow-up For: Acute hypoxic respiratory failure, multilobar pneumonia Tele-Events Since Last Visit: Normal sinus rhythm heart rate between 62-69 Subjective: Patient seen and examined this morning, lying in bed in no acute distress no issues overnight, lethargic, but offers no complaints. Review of Systems Constitutional: Reports: see HPI. Objective Last 24 Hrs of Vital Signs/I&O Vital Signs Date Time Temp Pulse Resp B/P B/P Pulse O2 O2 Flow FiO2 Mean Ox Delivery Rate 02/27 1702 75 120/70 02/27 1600 94 Nasal 3.0L Cannula 02/27 1456 98.3 80 106/50 02/27 1306 97.9 02/27 0903 97.8 64 20 96/52 94 Nasal 3.0L Cannula 02/27 0800 94 Nasal 3.0L Cannula 02/27 0000 Nasal 3.0L Cannula 02/26 2337 98.7 71 18 92/48 94 Nasal 3.0L Cannula Intake & Output 02/27 1600 02/27 0800 02/27 0000 Intake Total 1400 800 900 Output Total 175 250 400 Balance 1225 550 500 Intake, IV 800 800 800 Intake, Oral 600 0 100 Number 1 0 Bowel Movements Output, Stool 0 Output, Urine 175 250 400 Patient 46.72 kg Weight Weight Chair scale Measurement Method Physical Exam General Appearance: Alert, Oriented X3, Cooperative Assessment/Plan Assessment: Patient is a 76-year-old lady with PMH of dementia, end stage ILD, RA on prednisone, and sarcoidosis, who is BIBA to the ED due to worsening cough and fever. Problem list and plan: 1. Severe sepsis most likely due to healthcare associated pneumonia monitor vital signs every shift gentle hydration with IV NS at 75 cc/hour lactic acid trended down continue IV ceftazidime BCx2 NGTD sent UC will follow up Mucinex ordered lower respiratory culture, will follow up 2. End stage ILD SO2 96% on 2L O2 per NC continue O2 suppl as needed to keep SO2>92% pulmonary on board TRC/Nebs as needed 3. CHF and hypotension Lasix cont 1000 cc total of bolus NS, then reassess the patient continue to monitor I's and O's while on fluids monitor BP cardiology on board 4. history if RA on chronic prednisone 10 mg daily 5. Discoid rash on the lower back - subsided etiology reported to be autoimmune per the family not symptomatic wound care evaluation Gave stress dose of hydrocortisone 6. Macrocytic anemia chronic and stable consider checking B12 and Folate DVT px with SC lovenox DNR/DNI Problem List: 1. CHF (congestive heart failure) Pain Ratin Pain Location: none Pain Goal: Remain pain free Pain Plan: mpp Tomorrow's Labs & Rationales: cbc bep RE MCRAE,MARICHUY 02/27/17 1307: Attending MD Review Statement Attending Statement Attending MD Statement: examined this patient, discuss w/resident/PA/DIRECTOR OF STRATEGIC ALLIANCES, agreed w/resident/PA/DIRECTOR OF STRATEGIC ALLIANCES, reviewed EMR data (avail), discussed with nursing, discussed with case mgmt, amended to note Attending Assessment/Plan: Patient seen and examined. Lying in bed not in acute distress. No issues overnight reported by nursing staff. She was in normal sinus rhythm overnight with first-degree AV block and occasional ventricular ectopy. She is quite lethargic but denies shortness of breath at rest. Denies chest pain. Denies palpitations. She is afebrile and hemodynamically stable saturating 94% on 3 L of oxygen. On examination she is frail. She is not in respiratory distress. Heart sounds are regular. She has mild rhonchi bilaterally. She has no peripheral edema. Abdomen is soft and nontender with normal bowel sounds. Problems: 1. Acute hypoxic respiratory failure 2. Multilobar pneumonia with concern for gram-negative pathogens. 3. Interstitial lung disease 4. History of achalasia 5. Acute on chronic anemia. Plan: -In the absence of history of MRSA colonization would recommend discontinuing vancomycin -Follow-up speech and blood cultures. -Maintain aspiration precautions at all times. -Repeat hemoglobin level this afternoon. Check stool guaiac. -No escalation of care. We'll consider comfort measures only if patient's condition deteriorates. -Discontinue telemetry.
[2017-02-27 08:00] LABS: ABSOLUTE BASOPHIL COUNT 0 /CUMM (0.0-0.2); ABSOLUTE EOSINOPHIL COUNT 0 /CUMM (0.0-0.7); ABSOLUTE GRANULOCYTE CT 15.7 /CUMM (1.4-6.5); ABSOLUTE LYMPH COUNT 1.1 /CUMM (1.2-3.4); ABSOLUTE MONOCYTE COUNT 0.1 /CUMM (0.10-0.60); BASOPHIL % 0 % (0.0-2.0); EOSINOPHIL % 0 % (0-5); GRANULOCYTE % 92.8 % (42.2-75.2); MEAN CORPUSCULAR HGB 40.4 PG (27.0-31.0); MEAN CORPUSCULAR HGB CONC 34.2 G/DL (33.0-37.0); MEAN CORPUSCULAR VOLUME 118.1 FL (81.0-99.0); MEAN PLATELET VOLUME 10.4 FL (7.4-10.4); RBC DISTRIBUTION WIDTH 20.9 % (11.5-14.5); WHITE BLOOD CELL COUNT 16.9 /CUMM (4.8-10.8)
[2017-02-27 09:03] VITALS: BP 96/52
[2017-02-27 09:32] LABS: RED BLOOD CELL CT 2.12 /CUMM (4.20-5.40)
[2017-02-27 09:33] LABS: PLATELET COUNT 107 /CUMM (130-400)
--- NOTE | 2017-02-27 12:42 | PN- Pulmonary ---
Subjective HPI/Critical Care Issues: pt seen and examined appears comfortable follows directions takes off o2 intermittently daughter at bedside afebrile 94% on 3LNC bp stable Objective Current Medications: Current Medications Sig/Vanessa Start time Last Medication Dose Route Stop Time Status Admin Acetaminophen 650 MG Q6P PRN 02/26 0600 AC PO Acetaminophen/ 1 TAB Q6P PRN 02/26 0600 AC Hydrocodone Bitart PO Ceftazidime 1,000 MG 0445,1645 02/26 1645 AC 02/27 IV 0525 Enoxaparin Sodium 40 MG DAILY 02/26 1000 AC 02/27 SC 0934 Guaifenesin 600 MG Q12 02/26 1000 AC 02/27 PO 0934 Hydrocortisone 100 MG Q8 02/26 2200 AC 02/27 Sodium Succinate IV 0525 Hydrocortisone 50 MG Q8 02/26 1400 DC Sodium Succinate IV Metronidazole 500 MG IQ8 02/26 1600 AC 02/27 N/A 1 UNIT IV 0811 Morphine Sulfate 1 MG Q4P PRN 02/26 0600 AC IV Omeprazole 40 MG DAILY AC 02/26 0700 DC 02/26 PO 0727 Pantoprazole Sodium 40 MG DAILY 02/26 1418 AC 02/27 IV 0934 Potassium Chloride 40 MEQ ONCE ONE 02/27 1230 DC PO 02/27 1231 Sodium Chloride 500 ML .Q5H 02/26 0615 AC 02/26 IV 1307 Vancomycin HCl 750 MG 0800,02/27 0800 AC 02/27 Sodium Chloride 250 ML IV 0933 Vancomycin HCl 750 MG 0515,1715 02/26 1715 DC 02/26 Sodium Chloride 250 ML IV 1949 Vital Signs & I&O Last 24 Hrs of Vitals and I&O: Vital Signs Date Time Temp Pulse Resp B/P B/P Pulse O2 O2 Flow FiO2 Mean Ox Delivery Rate 02/27 0903 97.8 64 20 96/52 94 Nasal 3.0L Cannula 02/27 0800 94 Nasal 3.0L Cannula 02/27 0000 Nasal 3.0L Cannula 02/26 2337 98.7 71 18 92/48 94 Nasal 3.0L Cannula 02/26 1908 Nasal 3.0L Cannula 02/26 1800 Nasal 3.0L Cannula 02/26 1646 97.8 78 20 92/50 97 Nasal 3.0L Cannula 02/26 1301 75 23 82/44 98 Nasal 3.0L Cannula Intake & Output 02/27 1600 02/27 0800 02/27 0000 Intake Total 800 900 Output Total 250 400 Balance 550 500 Intake, IV 800 800 Intake, Oral 0 100 Number 1 0 Bowel Movements Output, Urine 250 400 Patient 103 lb Weight Weight Chair scale Measurement Method Exam Other Physical Findings: gen awake, comfortable heent ncat cvs s1, s2, +murmur lungs rare rhonchi abd soft bs+ ext without edema Results Last 24 Hrs of Lab Results: Laboratory Tests 02/27/17 0645: Anion Gap 6, Estimated GFR > 60, BUN/Creatinine Ratio 32.9 H, CBC w Diff MAN DIFF ORDERED, RBC 2.12 L, MCV 118.1 H, MCH 40.4 H, RDW 20.9 H, MPV 10.4, Gran % 92.8 H, Lymphocytes % 6.3 L, Monocytes % 0.9 L, Eosinophils % 0, Basophils % 0 L, Absolute Granulocytes 15.7 H, Segmented Neutrophils 78 H, Band Neutrophils 17 H, Absolute Lymphocytes 1.1 L, Lymphocytes 4 L, Monocytes 1 L, Absolute Monocytes 0.1 L, Absolute Eosinophils 0, Absolute Basophils 0, Polychromasia 1+, Anisocytosis 1+, Macrocytic Cells 4+, PUBS MCHC 34.2 02/26/17 1624: Urinalysis LIGHT H, Urine Color YEL, Urine Clarity HAZY H, Urine pH 6.0, Ur Specific [place] 1.025, Urine Protein 30 H, Urine Ketones NEG, Urine Nitrite POS H, Urine Bilirubin NEG, Urine Urobilinogen 0.2, Ur Leukocyte Esterase NEG, Ur Microscopic SEDIMENT EXAMINED, Urine RBC 1-3, Urine WBC 15-25 H, Ur Epithelial Cells FEW, Urine Bacteria MANY H, Urine Mucus FEW, Urine Hemoglobin TRACE-INTACT, Urine Glucose NEG Impression/Plan Impression/Plan Impression/Plan: Impression 76 year old woman * acute hypoxemic respiratory failure secondary to multilobar pneumonia, aspiration vs HCAP * hypotension improving to baseline (in 90's) * IPF, hx of RA, interstitial lung disease * hx of achalasia, regurgitation, possible aspiration Plan -cont abx -steroid taper -diuresis -goals of care reviewed - DNR/DNI, no escalation of tx DVT prophylaxis at all times
[2017-02-27 14:56] VITALS: BP 106/50
--- NOTE | 2017-02-27 16:16 | PN- Cardiology ---
Subjective Subjective: Shortness of breath is somewhat better. No chest pain. No palpitations. No dizziness. Objective Vital Signs and I&Os Vital Signs Date Time Temp Pulse Resp B/P B/P Pulse O2 O2 Flow FiO2 Mean Ox Delivery Rate 02/27 1456 98.3 80 106/50 02/27 1306 97.9 02/27 0903 97.8 64 20 96/52 94 Nasal 3.0L Cannula 02/27 0800 94 Nasal 3.0L Cannula 02/27 0000 Nasal 3.0L Cannula 02/26 2337 98.7 71 18 92/48 94 Nasal 3.0L Cannula 02/26 1908 Nasal 3.0L Cannula 02/26 1800 Nasal 3.0L Cannula 02/26 1646 97.8 78 20 92/50 97 Nasal 3.0L Cannula Intake & Output 02/27 1600 02/27 0800 02/27 0000 02/26 1600 02/26 0800 02/26 0000 Intake Total 1400 800 900 Output Total 175 250 400 Balance 1225 550 500 Intake, IV 800 800 800 Intake, Oral 600 0 100 Number 1 0 Bowel Movements Output, Stool 0 Output, Urine 175 250 400 Patient 103 lb 100 lb Weight Weight Chair scale Measurement Method Physical Exam: Gen: NAD HEENT: normal Lungs: clear to auscultation, normal resp. effort Heart: RRR, S1, S2, no murmurs Abdomen: Soft, nontender, no masses Extremities: No clubbing, cyanosis, or edema. Neuro: Alert and oriented x 3, cranial nerves intact Current Medications: Current Medications Sig/Vanessa Start time Last Medication Dose Route Stop Time Status Admin Acetaminophen 650 MG Q6P PRN 02/26 06 AC PO Acetaminophen/ 1 TAB Q6P PRN 02/26 0600 AC Hydrocodone Bitart PO Ceftazidime 1,000 MG 0445,1645 02/26 1645 AC 02/27 IV 0525 Enoxaparin Sodium 40 MG DAILY 02/26 1000 02/27 SC 0934 Furosemide 20 MG ONCE ONE 02/27 1545 DC 02/27 PO 02/27 1546 1552 Guaifenesin 600 MG Q12 02/26 1000 AC 02/27 PO 0934 Hydrocortisone 50 MG Q8 02/27 2200 AC Sodium Succinate IV Hydrocortisone 100 MG Q8 02/26 2200 DC 02/27 Sodium Succinate IV 1457 Metronidazole 500 MG IQ8 02/26 1600 AC 02/27 N/A 1 UNIT IV 1542 Morphine Sulfate 1 MG Q4P PRN 02/26 0600 IV Pantoprazole Sodium 40 MG DAILY 02/26 1418 AC 02/27 IV 0934 Potassium Chloride 40 MEQ ONCE ONE 02/27 1230 DC 02/27 PO 02/27 1231 1457 Sodium Chloride 500 ML .Q5H 02/26 0615 DC 02/27 IV 1303 Vancomycin HCl 750 MG 0800,2000 02/27 0800 DC 02/27 Sodium Chloride 250 ML IV 0933 Vancomycin HCl 750 MG 0515,1715 02/26 1715 VA 02/26 Sodium Chloride 250 ML IV 1949 Results Last 48 Hrs of Labs/Mics: Laboratory Tests 02/27/17 0645: Anion Gap 6, Estimated GFR > 60, BUN/Creatinine Ratio 32.9 H, CBC w Diff MAN DIFF ORDERED, RBC 2.12 L, MCV 118.1 H, MCH 40.4 H, RDW 20.9 H, MPV 10.4, Gran % 92.8 H, Lymphocytes % 6.3 L, Monocytes % 0.9 L, Eosinophils % 0, Basophils % 0 L, Absolute Granulocytes 15.7 H, Segmented Neutrophils 78 H, Band Neutrophils 17 H, Absolute Lymphocytes 1.1 L, Lymphocytes 4 L, Monocytes 1 L, Absolute Monocytes 0.1 L, Absolute Eosinophils 0, Absolute Basophils 0, Polychromasia 1+, Anisocytosis 1+, Macrocytic Cells 4+, PUBS MCHC 34.2 02/26/17 1624: Urinalysis LIGHT H, Urine Color YEL, Urine Clarity HAZY H, Urine pH 6.0, Ur Specific [place] 1.025, Urine Protein 30 H, Urine Ketones NEG, Urine Nitrite POS H, Urine Bilirubin NEG, Urine Urobilinogen 0.2, Ur Leukocyte Esterase NEG, Ur Microscopic SEDIMENT EXAMINED, Urine RBC 1-3, Urine WBC 15-25 H, Ur Epithelial Cells FEW, Urine Bacteria MANY H, Urine Mucus FEW, Urine Hemoglobin TRACE-INTACT, Urine Glucose NEG 02/26/17 0623: Lactic Acid 1.3 02/26/17 0415: pH 7.48 H, pCO2 31 L, pO2 77 L, HCO3 22, ABG O2 Sat (Measured) 92.0 L, P-50 (Temp Corrected) Y, Carboxyhemoglobin 0.2 L, O2 Concentration % 6 LPM, Temperature 102.0 H, O2 Delivery Method N/C, Phlebotomy Draw Site RIGHT BRACHIAL 02/26/17 031: Lactic Acid 3.0 H 02/26/17 0310: Anion Gap 12, Estimated GFR > 60, BUN/Creatinine Ratio 38.8 H, Glucose 127 H, Calcium 8.7, Magnesium 1.9, Total Bilirubin 0.8, AST 32, ALT 32, Alkaline Phosphatase 64, Troponin I 0.07, Cjz-I-Cmgdctseviw Pept 2870 H, Total Protein 6.2 L, Albumin 3.3 L, Globulin 2.9, Albumin/Globulin Ratio 1.1, CBC w Diff MAN DIFF ORDERED, RBC 2.98 L, MCV 114.1 H, MCH 38.0 H, RDW 21.0 H, MPV 10.5 H, Gran % 90.2 H, Lymphocytes % 8.0 L, Monocytes % 1.4 L, Eosinophils % 0.3, Basophils % 0.1, Absolute Granulocytes 21.5 H, Segmented Neutrophils 75, Band Neutrophils 15 H, Absolute Lymphocytes 1.9, Lymphocytes 7 L, Monocytes 1 L, Absolute Monocytes 0.3, Eosinophils 1, Absolute Eosinophils 0.1, Absolute Basophils 0, Metamyelocytes 1, Nucleated RBCs 1 H, Platelet Estimate ADEQUATE, Polychromasia 1+, Anisocytosis 2+, Macrocytic Cells 2+, Ovalocytes FEW, Stomatocytes FEW, PUBS MCHC 33.3, Fld Total RBCs Counted 100 Recent Imaging Studies: 1. Limited evaluation due to extensive respiratory motion artifact. 2. Redemonstrated regions of subpleural reticulation bilaterally, in keeping with history of underlying interstitial lung disease. 3. There are multifocal regions of consolidation, most prominently in the lower lobes. Appearance may reflect multifocal pneumonia or aspiration; a component of edema cannot be excluded in the proper clinical setting. 4. Dilated main pulmonary artery, suggesting pulmonary hypertension. Assessment/Plan Assessment/Plan Assessment: 1. Multilobar pneumonia 2. Interstitial lung disease 3. Sarcoidosis 4. No evidence of acute CHF Plan: * Continue antibiotics as per the medical team * Continue current dose of by mouth Lasix Continue telemetry? Yes
[2017-02-27 17:02] VITALS: BP 120/70
[2017-02-27 18:51] LABS: ABSOLUTE BASOPHIL COUNT 0 /CUMM (0.0-0.2); ABSOLUTE EOSINOPHIL COUNT 0 /CUMM (0.0-0.7); ABSOLUTE GRANULOCYTE CT 15.5 /CUMM (1.4-6.5); ABSOLUTE LYMPH COUNT 1.1 /CUMM (1.2-3.4); ABSOLUTE MONOCYTE COUNT 0.2 /CUMM (0.10-0.60); BASOPHIL % 0.1 % (0.0-2.0); EOSINOPHIL % 0 % (0-5); GRANULOCYTE % 92.4 % (42.2-75.2); HEMATOCRIT 27.1 % (37-47); MEAN CORPUSCULAR HGB 39.4 PG (27.0-31.0); MEAN CORPUSCULAR HGB CONC 33.4 G/DL (33.0-37.0); MEAN CORPUSCULAR VOLUME 118.1 FL (81.0-99.0); MEAN PLATELET VOLUME 11.2 FL (7.4-10.4); PLATELET COUNT 136 /CUMM (130-400); WHITE BLOOD CELL COUNT 16.7 /CUMM (4.8-10.8)
[2017-02-27 23:00] VITALS: BP 114/64
[2017-02-28 08:05] VITALS: BP 120/62
[2017-02-28 08:30] LABS: ABSOLUTE BASOPHIL COUNT 0 /CUMM (0.0-0.2); ABSOLUTE EOSINOPHIL COUNT 0 /CUMM (0.0-0.7); ABSOLUTE GRANULOCYTE CT 8.7 /CUMM (1.4-6.5); ABSOLUTE LYMPH COUNT 1.3 /CUMM (1.2-3.4); ABSOLUTE MONOCYTE COUNT 0.1 /CUMM (0.10-0.60); BASOPHIL % 0.2 % (0.0-2.0); EOSINOPHIL % 0.1 % (0-5); GRANULOCYTE % 86.2 % (42.2-75.2); HEMATOCRIT 25.5 % (37-47); MEAN CORPUSCULAR HGB 40.4 PG (27.0-31.0); MEAN CORPUSCULAR VOLUME 119.1 FL (81.0-99.0); MEAN PLATELET VOLUME 10.7 FL (7.4-10.4); PLATELET COUNT 135 /CUMM (130-400); RBC DISTRIBUTION WIDTH 21.3 % (11.5-14.5); RED BLOOD CELL CT 2.15 /CUMM (4.20-5.40); WHITE BLOOD CELL COUNT 10.1 /CUMM (4.8-10.8)
--- NOTE | 2017-02-28 09:30 | PN- Housestaff ---
PADMA MCRAE,KG 02/28/17 0930: Subjective Follow-up For: Chronic cough -hospital-acquired pneumonia Interstitial lung disease Hypotension secondary to adrenal insufficiency Anemia Complaints: pain while swallowing Tele-Events Since Last Visit: No overnight events, we DC'd the telemetric monitoring for today Subjective: Patient is seen and examined at the bedside. She was feeling much comfortable than before. Her cough has been decreased according to the family. We repeated the patient and it was very low in the morning, which come back to 3.6. After that, we decided to transfer the patient to general [facility] floor and DC the Hartmann catheter. He also decreased the injection hydrocortisone from 50 milligrams 8 hourly to BID. On examination, there was no any erythema or congestion in the throat. Throat pain may be due to potassium tablet or it may be due to thrush. We started her on nystatin swish and swallow. Review of Systems Constitutional: Reports: no symptoms. Comments: Pain in her throat while swallowing Objective Last 24 Hrs of Vital Signs/I&O Vital Signs Date Time Temp Pulse Resp B/P B/P Pulse O2 O2 Flow FiO2 Mean Ox Delivery Rate 02/28 1600 96 Nasal 3.0L Cannula 02/28 1550 98.5 65 20 112/58 96 Nasal 3.0L Cannula 02/28 1220 95 Nasal 3.0L Cannula 02/28 0805 97.6 65 20 120/62 96 Nasal 3.0L Cannula 02/28 0800 96 Nasal 3.0L Cannula 02/28 0000 Nasal 3.0L Cannula 02/27 2300 97.7 68 26 114/64 96 Nasal 3.0L Cannula Intake & Output 02/28 1600 02/28 0800 02/28 0000 Intake Total 640 300 490 Output Total 200 200 600 Balance 440 100 -110 Intake, IV 200 100 100 Intake, Oral 440 200 390 Number 0 1 1 Bowel Movements Output, Urine 200 200 600 Patient 46.266 kg Weight Weight Chair scale Measurement Method Physical Exam General Appearance: Alert, Oriented X3, Cooperative, No Acute Distress Skin: area of subcutaneous echhymosis Cardiovascular: Normal S1, Normal S2, members present Lungs: bilateral leathery crackles Abdomen: Soft, No Tenderness Neurological: able to spell couple of words,following all verbal comments Extremities: No Clubbing, No Cyanosis, No Edema Vascular: Normal Pulses, Pulses Symmetrical Current Medications: Current Medications Sig/Vanessa Start time Last Medication Dose Route Stop Time Status Admin Acetaminophen 650 MG Q6P PRN 02/26 0600 AC PO Acetaminophen/ 1 TAB Q6P PRN 02/26 06 AC Hydrocodone Bitart PO Albuterol Sulfate 3 ML BID 02/28 2200 AC 02/28 INH 1220 Ceftazidime 1,000 MG 0445,1645 02/26 1645 AC 02/28 IV 1608 Enoxaparin Sodium 40 MG DAILY 02/26 1000 AC 02/28 SC 0848 Guaifenesin 600 MG Q12 02/26 1000 AC 02/28 PO 0848 Hydrocortisone 50 MG BID 02/28 2200 AC Sodium Succinate IV Hydrocortisone 50 MG Q8 02/27 2200 DC 02/28 Sodium Succinate IV 1337 Metronidazole 500 MG IQ8 02/26 1600 AC 02/28 N/A 1 UNIT IV 1609 Morphine Sulfate 1 MG Q4P PRN 02/26 06 AC IV Multivitamins 1 TAB DAILY 02/28 1105 AC 02/28 PO 1337 Non-Formulary 0 SEE ADMIN CRITERIA 02/28 1115 CAN Medication ANY Nystatin 5 ML 4 TIMES/DAY 02/28 1148 AC 02/28 PO 1337 Pantoprazole Sodium 40 MG DAILY 02/26 1418 AC 02/28 IV 0922 Potassium Chloride 10 MEQ Q1H 02/28 0745 DC 02/28 IV 02/28 0846 1102 Potassium Chloride 40 MEQ ONCE ONE 02/28 0745 DC 02/28 PO 02/28 0746 0848 Last 24 Hrs of Lab/Carlos Results Last 24 Hrs of Labs/Mics: Laboratory Tests 02/28/17 1440: 02/28/17 0628: Anion Gap 8, Estimated GFR > 60, BUN/Creatinine Ratio 27.1 H, Phosphorus 2.0 L , Magnesium 2.1, Vitamin B12 905, Folate 6.9, CBC w Diff MAN DIFF ORDERED, RBC 2.15 L, MCV 119.1 H, MCH 40.4 H, RDW 21.3 H, MPV 10.7 H, Gran % 86.2 H, Lymphocytes % 12.8 L, Monocytes % 0.7 L, Eosinophils % 0.1, Basophils % 0.2, Absolute Granulocytes 8.7 H, Segmented Neutrophils 74, Band Neutrophils 5, Absolute Lymphocytes 1.3, Lymphocytes 8 L, Monocytes 8, Absolute Monocytes 0.1 L, Absolute Eosinophils 0, Absolute Basophils 0, Metamyelocytes 5 H, Nucleated RBCs 1 H, Polychromasia 1+, Poikilocytosis 1+, Basophilic Stippling RARE, Anisocytosis 2+, Macrocytic Cells 4+, PUBS MCHC 34.0 Assessment/Plan Assessment: Patient is a 76-year-old lady with PMH of dementia, end stage ILD, RA on prednisone, and sarcoidosis, who is BIBA to the ED due to worsening cough and fever. Problem list and plan: Healthcare associated pneumonia leading to acute adrenal insufficiency * We stopped IV fluids * We will continue IV ceftazidime * Follow blood cultures were negative * monitor vital signs every shift * Strict intake output charting End stage ILD * We'll continue 1 liter of oxygen , especially nighttime * We'll keep SPO2 more than 92% * We will continue to taper the steroid dose -decreased injection hydrocortisone from 50 milligrams every 8 hourly to twice a day * TRC/Nebs as needed Hypokalemia * In the morning, serum potassium was 2.9 and supplementation was given * Repeated potassium come back to 3.6 * EDC the telemetry and transfer the patient to general medicine Diet -regular diet CODE STATUS-DNR/DNI DVT PROPHYLAXIS - SC lovenox Problem List: 1. Pneumonia 2. Interstitial lung disease 3. Hypokalemia 4. Anemia Pain Ratin Pain Location: Joints and the throat Pain Goal: Remain pain free Pain Plan: [id number]-di-[id number], low dose steroid Tomorrow's Labs & Rationales: BEP-for follow-up with hypokalemia CBC- follow-up anemia DVT/Prophylaxis: mechanical, pharmacological MARICHUY GRIMALDO MD 02/28/17 1037: Attending MD Review Statement Attending Statement Attending MD Statement: examined this patient, discuss w/resident/PA/BULK INTAKE WORKER, agreed w/resident/PA/BULK INTAKE WORKER, reviewed EMR data (avail), discussed with nursing, discussed with case mgmt, amended to note Attending Assessment/Plan: Patient seen and examined. No issues overnight on telemetry. She is resting comfortably and not in any acute distress. She is hemodynamically stable and afebrile. She does no have any worsening oxygen requirement. I had an extensive conversation with the patient's son and [id number]. Given the patient's significant comorbidities and markedly deconditioned status they do not wish to proceed with any aggressive management. He reported that patient was discharged from a [facility] but ended up being admitted to the hospital 12 hours later. They do not wish for her to return to the [facility]. They wish for her to be discharged home and do not wish to initiate any treatment if her condition declines at that time. In view of this I discussed hospice options with them and their desire is for patient to be discharged home with hospice care only. Given her history of dementia and end-stage interstitial lung disease the request is certainly within reason. Problems: 1. Acute hypoxic respiratory failure 2. Multilobar pneumonia with concern for gram-negative pathogens. 3. End-stage Interstitial lung disease 4. History of achalasia 5. Acute on chronic anemia. 7. Severe deconditioning Recommendations: -Continue current antibiotic course. -Taper down steroids therapy to every 12 hours today and transition to oral steroid therapy tomorrow. -If he remains afebrile and hemodynamically stable with negative cultures she may be transitioned soon to oral antibiotic therapy. -Obtain hospice consultation tomorrow with the goal of discharging patient on home hospice care during the week. -Discontinue telemetry monitoring and transfer patient to the general medical service once potassium level improves. -Supplement potassium orally. Repeat labs this afternoon. -Discontinue Hartmann catheter. Resume home diuretic therapy since her blood pressure is now stable.\-Hemoglobin level is below baseline when discharged recently. Continue to monitor.
--- NOTE | 2017-02-28 11:46 | PN- Pulmonary ---
Subjective HPI/Critical Care Issues: Patient seen and examined this morning she is awake without any events overnight. She is afebrile saturating well on 3 L nasal cannula Objective Current Medications: Current Medications Sig/Vanessa Start time Last Medication Dose Route Stop Time Status Admin Acetaminophen 650 MG Q6P PRN 02/26 0600 AC PO Acetaminophen/ 1 TAB Q6P PRN 02/26 0600 AC Hydrocodone Bitart PO Ceftazidime 1,000 MG 0445,1645 02/26 1645 AC 02/28 IV 0515 Enoxaparin Sodium 40 MG DAILY 02/26 1000 AC 02/28 SC 0848 Furosemide 20 MG ONCE ONE 02/27 1545 DC 02/27 PO 02/27 1546 1552 Guaifenesin 600 MG Q12 02/26 1000 AC 02/28 PO 0848 Hydrocortisone 50 MG Q8 02/27 2200 AC 02/28 Sodium Succinate IV 0515 Hydrocortisone 100 MG Q8 02/26 2200 DC 02/27 Sodium Succinate IV 1457 Metronidazole 500 MG IQ8 02/26 1600 AC 02/28 N/A 1 UNIT IV 0800 Morphine Sulfate 1 MG Q4P PRN 02/26 0600 AC IV Multivitamins 1 TAB DAILY 02/28 1105 AC PO Non-Formulary 0 SEE ADMIN CRITERIA 02/28 1115 UNVr Medication ANY Pantoprazole Sodium 40 MG DAILY 02/26 1418 AC 02/28 IV 0922 Potassium Chloride 10 MEQ Q1H 02/28 0745 DC 02/28 IV 02/28 0846 1102 Potassium Chloride 40 MEQ ONCE ONE 02/28 0745 DC 02/28 PO 02/28 0746 0848 Potassium Chloride 40 MEQ ONCE ONE 02/27 1230 DC 02/27 PO 02/27 1231 1457 Sodium Chloride 500 ML .Q5H 02/26 0615 DC 02/27 IV 1303 Vancomycin HCl 750 MG 0800,02/27 0800 DC 02/27 Sodium Chloride 250 ML IV 0933 Vital Signs & I&O Last 24 Hrs of Vitals and I&O: Vital Signs Date Time Temp Pulse Resp B/P B/P Pulse O2 O2 Flow FiO2 Mean Ox Delivery Rate 02/28 0805 97.6 65 20 120/62 96 Nasal 3.0L Cannula 02/28 0800 96 Nasal 3.0L Cannula 02/28 0000 Nasal 3.0L Cannula 02/27 2300 97.7 68 26 114/64 96 Nasal 3.0L Cannula 02/27 1702 75 120/70 02/27 1600 94 Nasal 3.0L Cannula 02/27 1456 98.3 80 106/50 02/27 1306 97.9 Intake & Output 02/28 1600 02/28 0800 02/28 0000 Intake Total 300 490 Output Total 200 600 Balance 100 -110 Intake, IV 100 100 Intake, Oral 200 390 Number 1 1 Bowel Movements Output, Urine 200 600 Patient 102 lb Weight Weight Chair scale Measurement Method Exam Other Physical Findings: gen awake, comfortable heent ncat cvs s1, s2, +murmur lungs rare rhonchi abd soft bs+ ext without edema Results Last 24 Hrs of Lab Results: Laboratory Tests 02/28/17 0628: Anion Gap 8, Estimated GFR > 60, BUN/Creatinine Ratio 27.1 H, Phosphorus 2.0 L , Magnesium 2.1, Vitamin B12 Pending, Folate Pending, CBC w Diff MAN DIFF ORDERED, RBC 2.15 L, MCV 119.1 H, MCH 40.4 H, RDW 21.3 H, MPV 10.7 H, Gran % 86.2 H, Lymphocytes % 12.8 L, Monocytes % 0.7 L, Eosinophils % 0.1, Basophils % 0.2, Absolute Granulocytes 8.7 H, Segmented Neutrophils 74, Band Neutrophils 5, Absolute Lymphocytes 1.3, Lymphocytes 8 L, Monocytes 8, Absolute Monocytes 0.1 L, Absolute Eosinophils 0, Absolute Basophils 0, Metamyelocytes 5 H, Nucleated RBCs 1 H, Polychromasia 1+, Poikilocytosis 1+, Basophilic Stippling RARE, Anisocytosis 2+, Macrocytic Cells 4+, PUBS MCHC 34.0 02/27/17 1745: CBC w Diff NO MAN DIFF REQ, RBC 2.30 L, MCV 118.1 H, MCH 39.4 H, RDW 22.0 H, MPV 11.2 H, Gran % 92.4 H, Lymphocytes % 6.6 L, Monocytes % 0.9 L, Eosinophils % 0, Basophils % 0.1, Absolute Granulocytes 15.5 H, Absolute Lymphocytes 1.1 L, Absolute Monocytes 0.2, Absolute Eosinophils 0, Absolute Basophils 0, PUBS MCHC 33.4 Impression/Plan Impression/Plan Impression/Plan: Impression 76 year old woman * acute hypoxemic respiratory failure secondary to multilobar pneumonia, aspiration vs HCAP * hypotension improving to baseline (in 90's) * IPF, hx of RA, interstitial lung disease * hx of achalasia, regurgitation, possible aspiration Plan -cont abx -steroid taper -diuresis -goals of care reviewed - DNR/DNI, no escalation of tx DVT prophylaxis at all times
--- NOTE | 2017-02-28 12:20 | PN- Cardiology ---
Subjective Subjective: Shortness of breath is improved. No chest pain. No palpitations. No diaphoresis. Objective Vital Signs and I&Os Vital Signs Date Time Temp Pulse Resp B/P B/P Pulse O2 O2 Flow FiO2 Mean Ox Delivery Rate 02/28 0805 97.6 65 20 120/62 96 Nasal 3.0L Cannula 02/28 0800 96 Nasal 3.0L Cannula 02/28 0000 Nasal 3.0L Cannula 02/27 2300 97.7 68 26 114/64 96 Nasal 3.0L Cannula 02/27 1702 75 120/70 02/27 1600 94 Nasal 3.0L Cannula 02/27 1456 98.3 80 106/50 02/27 1306 97.9 Intake & Output 02/28 1600 02/28 0800 02/28 0000 02/27 1600 02/27 0800 02/27 0000 Intake Total 676 137 8261 800 900 Output Total 200 600 175 250 400 Balance 100 -110 1225 550 500 Intake, IV 100 100 800 800 800 Intake, Oral 200 390 600 0 100 Number 1 1 1 0 Bowel Movements Output, Stool 0 Output, Urine 200 600 175 250 400 Patient 102 lb 103 lb Weight Weight Chair scale Chair scale Measurement Method Physical Exam: Gen: NAD HEENT: normal Lungs: clear to auscultation, normal resp. effort Heart: RRR, S1, S2, no murmurs Abdomen: Soft, nontender, no masses Extremities: No clubbing, cyanosis, or edema. Neuro: Alert and oriented x 3, cranial nerves intact Current Medications: Current Medications Sig/Vanessa Start time Last Medication Dose Route Stop Time Status Admin Acetaminophen 650 MG Q6P PRN 02/26 0600 AC PO Acetaminophen/ 1 TAB Q6P PRN 02/26 0600 AC Hydrocodone Bitart PO Ceftazidime 1,000 MG 0445,1645 02/26 1645 AC 02/28 IV 0515 Enoxaparin Sodium 40 MG DAILY 02/26 1000 AC 02/28 SC 0848 Furosemide 20 MG ONCE ONE 02/27 1545 DC 02/27 PO 02/27 1546 1552 Guaifenesin 600 MG Q12 02/26 1000 AC 02/28 PO 0848 Hydrocortisone 50 MG Q8 02/27 2200 AC 02/28 Sodium Succinate IV 0515 Hydrocortisone 100 MG Q8 02/26 2200 DC 02/27 Sodium Succinate IV 1457 Metronidazole 500 MG IQ8 02/26 1600 AC 02/28 N/A 1 UNIT IV 0800 Morphine Sulfate 1 MG Q4P PRN 02/26 0600 AC IV Multivitamins 1 TAB DAILY 02/28 1105 AC PO Non-Formulary 0 SEE ADMIN CRITERIA 02/28 1115 UNVr Medication ANY Pantoprazole Sodium 40 MG DAILY 02/26 1418 AC 02/28 IV 0922 Potassium Chloride 10 MEQ Q1H 02/28 0745 DC 02/28 IV 02/28 0846 1102 Potassium Chloride 40 MEQ ONCE ONE 02/28 0745 DC 02/28 PO 02/28 0746 0848 Potassium Chloride 40 MEQ ONCE ONE 02/27 1230 DC 02/27 PO 02/27 1231 1457 Sodium Chloride 500 ML .Q5H 02/26 0615 DC 02/27 IV 1303 Vancomycin HCl 750 MG 0800,02/27 0800 DC 02/27 Sodium Chloride 250 ML IV 0933 Results Last 48 Hrs of Labs/Mics: Laboratory Tests 02/28/17 0628: Anion Gap 8, Estimated GFR > 60, BUN/Creatinine Ratio 27.1 H, Phosphorus 2.0 L , Magnesium 2.1, Vitamin B12 Pending, Folate Pending, CBC w Diff MAN DIFF ORDERED, RBC 2.15 L, MCV 119.1 H, MCH 40.4 H, RDW 21.3 H, MPV 10.7 H, Gran % 86.2 H, Lymphocytes % 12.8 L, Monocytes % 0.7 L, Eosinophils % 0.1, Basophils % 0.2, Absolute Granulocytes 8.7 H, Segmented Neutrophils 74, Band Neutrophils 5, Absolute Lymphocytes 1.3, Lymphocytes 8 L, Monocytes 8, Absolute Monocytes 0.1 L, Absolute Eosinophils 0, Absolute Basophils 0, Metamyelocytes 5 H, Nucleated RBCs 1 H, Polychromasia 1+, Poikilocytosis 1+, Basophilic Stippling RARE, Anisocytosis 2+, Macrocytic Cells 4+, PUBS MCHC 34.0 02/27/17 1745: CBC w Diff NO MAN DIFF REQ, RBC 2.30 L, MCV 118.1 H, MCH 39.4 H, RDW 22.0 H, MPV 11.2 H, Gran % 92.4 H, Lymphocytes % 6.6 L, Monocytes % 0.9 L, Eosinophils % 0, Basophils % 0.1, Absolute Granulocytes 15.5 H, Absolute Lymphocytes 1.1 L, Absolute Monocytes 0.2, Absolute Eosinophils 0, Absolute Basophils 0, PUBS MCHC 33.4 02/27/17 0645: Anion Gap 6, Estimated GFR > 60, BUN/Creatinine Ratio 32.9 H, CBC w Diff MAN DIFF ORDERED, RBC 2.12 L, MCV 118.1 H, MCH 40.4 H, RDW 20.9 H, MPV 10.4, Gran % 92.8 H, Lymphocytes % 6.3 L, Monocytes % 0.9 L, Eosinophils % 0, Basophils % 0 L, Absolute Granulocytes 15.7 H, Segmented Neutrophils 78 H, Band Neutrophils 17 H, Absolute Lymphocytes 1.1 L, Lymphocytes 4 L, Monocytes 1 L, Absolute Monocytes 0.1 L, Absolute Eosinophils 0, Absolute Basophils 0, Polychromasia 1+, Anisocytosis 1+, Macrocytic Cells 4+, PUBS MCHC 34.2 02/26/17 1624: Urinalysis LIGHT H, Urine Color YEL, Urine Clarity HAZY H, Urine pH 6.0, Ur Specific [place] 1.025, Urine Protein 30 H, Urine Ketones NEG, Urine Nitrite POS H, Urine Bilirubin NEG, Urine Urobilinogen 0.2, Ur Leukocyte Esterase NEG, Ur Microscopic SEDIMENT EXAMINED, Urine RBC 1-3, Urine WBC 15-25 H, Ur Epithelial Cells FEW, Urine Bacteria MANY H, Urine Mucus FEW, Urine Hemoglobin TRACE-INTACT, Urine Glucose NEG Microbiology 02/27 1624 URINE ROUT: Urine Culture - COMP Assessment/Plan Assessment/Plan Assessment: 1. Multilobar pneumonia 2. Interstitial lung disease 3. Sarcoidosis 4. No evidence of acute CHF 5. Hypokalemia Plan: * Hold Lasix for now. * Supplement * Continue antibiotics as per the medical team Continue telemetry? Yes
[2017-02-28 15:50] VITALS: BP 112/58
[2017-02-28 23:00] VITALS: BP 112/62
[2017-03-01 08:00] VITALS: BP 122/70
[2017-03-01 08:08] LABS: ABSOLUTE BASOPHIL COUNT 0 /CUMM (0.0-0.2); ABSOLUTE EOSINOPHIL COUNT 0 /CUMM (0.0-0.7); ABSOLUTE GRANULOCYTE CT 6.2 /CUMM (1.4-6.5); ABSOLUTE LYMPH COUNT 1.6 /CUMM (1.2-3.4); ABSOLUTE MONOCYTE COUNT 0.1 /CUMM (0.10-0.60); BASOPHIL % 0.1 % (0.0-2.0); EOSINOPHIL % 0.1 % (0-5); GRANULOCYTE % 78.4 % (42.2-75.2); HEMATOCRIT 26.1 % (37-47); MEAN CORPUSCULAR HGB 39.8 PG (27.0-31.0); MEAN CORPUSCULAR HGB CONC 33.6 G/DL (33.0-37.0); MEAN CORPUSCULAR VOLUME 118.2 FL (81.0-99.0); MEAN PLATELET VOLUME 10.1 FL (7.4-10.4); PLATELET COUNT 153 /CUMM (130-400); RBC DISTRIBUTION WIDTH 22.3 % (11.5-14.5); WHITE BLOOD CELL COUNT 7.9 /CUMM (4.8-10.8)
--- NOTE | 2017-03-01 08:25 | PN- Housestaff ---
Subjective Follow-up For: Chronic cough -hospital-acquired pneumonia Interstitial lung disease Hypotension secondary to adrenal insufficiency Anemia Complaints: no complaints Tele-Events Since Last Visit: Patient is general medicine floor hold Subjective: Patient is seen and examined at the bedside. She was not having any active complaints. She was feeling much better. She was saturating 94% on 2 liters of nasal cannula. Review of Systems Constitutional: Denies: no symptoms. Objective Last 24 Hrs of Vital Signs/I&O Vital Signs Date Time Temp Pulse Resp B/P B/P Pulse O2 O2 Flow FiO2 Mean Ox Delivery Rate 03/01 1602 98.1 79 24 100/58 94 Nasal 2.0L Cannula 03/01 0936 97 Nasal 2.0L Cannula 03/01 0800 Nasal 2.0L Cannula 03/01 0800 98.8 65 22 122/70 96 Nasal 2.0L Cannula 03/01 0000 Nasal 2.0L Cannula 02/28 2300 97.1 68 26 112/62 95 Nasal 2.0L Cannula 02/28 2045 96 Nasal 3.0L Cannula Intake & Output 03/01 1600 03/01 0800 03/01 0000 Intake Total 240 200 370 Output Total 100 Balance 240 200 270 Intake, IV 100 0 Intake, Oral 240 100 370 Number 1 2 1 Bowel Movements Output, Urine 100 Patient 46.266 kg Weight Physical Exam General Appearance: Alert, Cooperative, No Acute Distress Cardiovascular: Normal S1, Normal S2, murmur present Lungs: generalized leathery crackles Abdomen: Soft, No Tenderness Neurological: she followes all verbal commands,speech is comprehensible, Extremities: No Clubbing, No Cyanosis, No Edema Vascular: Normal Pulses, Pulses Symmetrical Assessment/Plan Assessment: Patient is a 76-year-old lady with PMH of dementia, end stage ILD, RA on prednisone, and sarcoidosis, who is BIBA to the ED due to worsening cough and fever. Plan: We'll discharge tomorrow Healthcare associated pneumonia leading to acute adrenal insufficiency * We stopped IV fluids * We stoppped ceftazidime and metronidazole and started patient on Moxifloxacin for 3 Days * Follow blood cultures were negative * monitor vital signs every shift * Strict intake output charting End stage ILD * We'll continue 1 liter of oxygen , especially nighttime * We'll keep SPO2 more than 92% * We stopped hydrocortisone and started patient on tablet prednisone 20 milligrams daily and will taper from tomorrow. * TRC/Nebs as needed Hypokalemia * K-3.4, we supplemented it. Diet -regular diet CODE STATUS-DNR/DNI DVT PROPHYLAXIS - SC lovenox Problem List: 1. Anemia 2. Hypokalemia 3. CHF (congestive heart failure) 4. Pneumonia 5. Interstitial lung disease Pain Ratin Pain Location: not applicable Pain Goal: Remain pain free Pain Plan: avoid NSAIDS Tomorrow's Labs & Rationales: BEP to follow up with potassium and creatinine DVT/Prophylaxis: mechanical, pharmacological
--- NOTE | 2017-03-01 11:16 | Patient Discharge Instructions ---
Discharge Instructions General Discharge Information You were seen/treated for: Cough and low BP secondary to pneumonia, and adrenal insufficency Special Instructions: Is going for home hospice care. Diet Continue normal diet: Yes Activity Full Activity/No Limits: No (as tolerated) Acute Coronary Syndrome Inclusion Criteria At DC or during hospital stay patient has or had the following: ACS DIAGNOSIS No Discharge Core Measures Meds if any: Prescribed or Continued at Discharge Meds if any: NOT Prescribed or Continued at Discharge Congestive Heart Failure Inclusion Criteria At DC or during hospital stay patient has or had the following: CHF DIAGNOSIS No Discharge Core Measures Meds if any: Prescribed or Continued at Discharge Meds if any: NOT Prescribed or Continued at Discharge Cerebrovascular accident Inclusion Criteria At DC or during hospital stay patient has or had the following: CVA/TIA Diagnosis No Discharge Core Measures Meds if any: Prescribed or Continued at Discharge Meds if any: NOT Prescribed or Continued at Discharge Venous thromboembolism Inclusion Criteria VTE Diagnosis No VTE Type NONE VTE Confirmed by (Test) NONE Discharge Core Measures - Per Current guidelines, there needs to be overlap - treatment for the first 5 days of Warfarin therapy. - If discharged on Warfarin prior to 5 days of - overlap therapy, the patient will need to be - assessed for post discharge needs including - *Post discharge parental anticoagulation - *Warfarin and/or parental anticoagulation education - *Follow up date to check INR post discharge At least 5 days overlap therapy as Inpatient No Meds if any: Prescribed or Continued at Discharge Note: Overlap Therapy is Warfarin and Anticoagulant Meds if any: NOT Prescribed or Continued at Discharge
--- NOTE | 2017-03-01 13:39 | PN- Att Addend ---
Attending Addendum Attending Brief Note Patient seen and examined. Plan of care discussed with the medical team and the patient. Available lab work and radiology test reports were reviewed. Patient currently on oxygen as she appears comfortable and is lying in bed. She is awake and alert follows command. She appears slightly tachypneic. Vital Signs Date Time Temp Pulse Resp B/P B/P Pulse O2 O2 Flow FiO2 Mean Ox Delivery Rate 03/01 0936 97 Nasal 2.0L Cannula 03/01 0800 Nasal 2.0L Cannula 03/01 0800 98.8 65 22 122/70 96 Nasal 2.0L Cannula 03/01 0000 Nasal 2.0L Cannula 02/28 2300 97.1 68 26 112/62 95 Nasal 2.0L Cannula 02/28 2045 96 Nasal 3.0L Cannula 02/28 1600 96 Nasal 3.0L Cannula 02/28 1550 98.5 65 20 112/58 96 Nasal 3.0L Cannula Intake & Output 03/01 1600 03/01 0800 03/01 0000 Intake Total 200 370 Output Total 100 Balance 200 270 Intake, IV 100 0 Intake, Oral 100 370 Number 2 1 Bowel Movements Output, Urine 100 Patient 102 lb Weight Exam: General: Patient awake alert oriented without any distress CVS: S1 plus S2 without any murmur or gallops Chest: Bilateral crepitations without any wheeze. There is no respiratory distress. Abdomen: Soft nontender, bowel sound present, no guarding or rebound INDUSTRIAL SAFETY AND HEALTH MANAGER: Awake alert oriented without any focal neuro deficit and follows command appropriately Extremities: No edema; no clubbing or cyanosis noted Laboratory Tests 03/01 02/28 0646 1440 Chemistry Sodium (137 - 145 mmol/L) 144 Potassium (3.5 - 5.1 mmol/L) 3.4 L 3.6 Chloride (98 - 107 mmol/L) 116 H Carbon Dioxide (22 - 30 mmol/L) 24 Anion Gap (5 - 16) 4 L BUN (7 - 17 mg/dL) 16 Creatinine (0.5 - 1.0 mg/dL) 0.6 Estimated GFR (>60 ml/min) > 60 BUN/Creatinine Ratio (7 - 25 %) 26.7 H Hematology CBC w Diff MAN DIFF ORDERED WBC (4.8 - 10.8 /CUMM) 7.9 RBC (4.20 - 5.40 /CUMM) 2.20 L Hgb (12.0 - 16.0 G/DL) 8.8 L Hct (37 - 47 %) 26.1 L MCV (81.0 - 99.0 FL) 118.2 H MCH (27.0 - 31.0 PG) 39.8 H RDW (11.5 - 14.5 %) 22.3 H Plt Count (130 - 400 /CUMM) 153 MPV (7.4 - 10.4 FL) 10.1 Gran % (42.2 - 75.2 %) 78.4 H Lymphocytes % (20.5 - 51.1 %) 20.4 L Monocytes % (1.7 - 9.3 %) 1.0 L Eosinophils % (0 - 5 %) 0.1 Basophils % (0.0 - 2.0 %) 0.1 Absolute Granulocytes (1.4 - 6.5 /CUMM) 6.2 Segmented Neutrophils (42.2 - 75.2 %) 58 Band Neutrophils (0.0 - 5.0 %) 10 H Absolute Lymphocytes (1.2 - 3.4 /CUMM) 1.6 Lymphocytes (20.5 - 51.1 %) 23 Absolute Monocytes (0.10 - 0.60 /CUMM) 0.1 L Absolute Eosinophils (0.0 - 0.7 /CUMM) 0 Absolute Basophils (0.0 - 0.2 /CUMM) 0 Metamyelocytes (0.0 - 1.0 %) 9 H Poikilocytosis 1+ Anisocytosis 2+ Macrocytic Cells 4+ PUBS MCHC (33.0 - 37.0 G/DL) 33.6 Assessment * Multilobar pneumonia * History of interstitial lung disease * Acute respiratory failure and hypoxia * Mild hypokalemia Plan * Agree with starting moxifloxacin oral * Taper oxygen as tolerated * Replace potassium by mouth * Out of bed and ambulate with assist * Begin discharge planning
[2017-03-01 16:02] VITALS: BP 100/58
--- NOTE | 2017-03-01 16:25 | Discharge Summary ---
Visit Information Visit Dates Admission Date: 02/26/17 Discharge Date: 03/05/2017 Hospital Course Course Attending Physician: FELICITY MCRAE,CHRIS Primary Care Physician: YENNI MCRAE,[facility] Hospital Course: Patient is a 76-year-old lady with past medical history of dementia, end-stage interstitial lung disease, rheumatoid arthritis on prednisone and sarcoidosis, who is BIBA to the ED due to worsening cough and fever. At the time of admission her temperature was very high, 102F, HR 113 and blood pressure was very low 80/ 50. We started her on IV fluids and gave IV hydrocortisone in stress doses. We discussed with the family about the goals of care. They did not wanted any intervention including central line and pressures. But they wanted to observe the patient for next 24 hours. If she responds, then they wanted to continue the medication without any heroic measures. We started patient on ceftriaxone and metronidazole. We admitted the patient into telemetry floor.She responded well to IV antibiotic. We gave total course of 7 days of antibiotic and tappering dose of steroid.We took the opinion of gear hobber set up operator and retail wireless associate. Later, the family decided her to change into home hospice care. The took the consult from hospice care and follow their recommendation. At the time of discharge, we gave Liquid Ativan and morphine, a liter of oxygen and steroids. Allergies: Coded Allergies: shellfish derived (Intermediate, SWELLING 01/29/17) Sulfa (Sulfonamide Antibiotics) (HIVES 01/29/17) iodamide (UNKNOWN 01/29/17) Disposition Summary Disposition Principal Diagnosis: Acute hypoxic respiratory failure is due to bilateral pneumonia-secondary to aspiration/healthcare associated [id number] septicemia Gram-negative septicemia Additional Diagnosis: Interstitial pulmonary fibrosis Pulmonary hypertension Rheumatoid arthritis Achalasia cardia GERD Stage I diastolic dysfunction Diastolic heart failure Macrocytosis Discharge Disposition: hospice - home Discharge Instructions General Discharge Information Code Status: Hospice Patient's Diet: Regular diet Patient's Activity: As tolerated Follow-Up Instructions/Appts: Please follow up instructions of hospice care nurse Medications at Discharge Discharge Medications: Continue taking these medications: Furosemide (Furosemide) 20 MG TABLET 20 Milligram ORAL DAILY Qty = 30 Comments: Last Taken: 02/27/17 Time: 3PM Omeprazole (Omeprazole) 20 MG CAPSULE.DR 40 Milligram ORAL DAILY BEFORE BREAKFAST Qty = 30 Comments: Last Taken: 03/05/17 Time: 6AM AM Prednisone (Prednisone) 10 MG TABLET 10 Milligram ORAL DAILY Qty = 15 Instructions: 1.5tab once a day for 1 day (03/06/2017) than 1tab once a day and meet with your retail wireless associate for further management. Comments: Last Taken: 03/05/17 Time: 9 AM PT GIVEN 15MG TODAY This prescription has been renewed Start taking the following new medications: Albuterol Sulfate (Albuterol Sulfate) 2.5 MG/3 ML (0.083 %) VIAL.NEB 3 Milliliters Inhale through mouth TWICE DAILY as needed for Difficulty in breathing Qty = 5 No Refills Comments: Last Taken: 03/04/17 Time: 9PM Guaifenesin (Guaifenesin ER) 600 MG TAB.ER.12H 1 Tablet ORAL EVERY 12 HOURS as needed for cough Qty = 10 No Refills Comments: Last Taken: 03/05/17 Time: 9AM Lorazepam (Ativan) 2 MG/ML VIAL 0.5 Milligram INTRAMUSC GIVE ONCE Qty = 2 No Refills Morphine Sulfate (Morphine Sulfate Elixir 10mg/5ml) 10 MG/5 ML SOLUTION 2.5 Milligram ORAL EVERY HOUR NEEDED as needed for Pain Qty = 30 No Refills Copies To: SHE MCRAE,ALEX Abraham; YENNI MCRAE,MARCELL Attending MD Review Statement Documenting Attending: FELICITY MCRAE,CHRIS
[2017-03-01] MEDS ORDERED: MOXIFLOXACIN H400 M2 PO (16:35)
--- NOTE | 2017-03-01 19:08 | PN- Pulmonary ---
Subjective HPI/Critical Care Issues: Patient is seen and examined at the bedside. She was not having any active complaints. She was feeling much better. She was saturating 94% on 2 liters of nasal cannula. Review of Systems Constitutional: Denies: no symptoms. Objective Current Medications: Current Medications Sig/Vanessa Start time Last Medication Dose Route Stop Time Status Admin Acetaminophen 650 MG Q6P PRN 02/26 0600 AC PO Acetaminophen/ 1 TAB Q6P PRN 02/26 0600 AC Hydrocodone Bitart PO Albuterol Sulfate 3 ML BID 02/28 2200 AC 03/01 INH 1825 Ceftazidime 1,000 MG 0445,1645 02/26 1645 DC 03/01 IV 0520 Enoxaparin Sodium 40 MG DAILY 02/26 1000 AC 03/01 SC 0940 Guaifenesin 600 MG Q12 02/26 1000 AC 03/01 PO 0937 Hydrocortisone 50 MG BID 02/28 2200 DC 02/28 Sodium Succinate IV 2100 Metronidazole 500 MG IQ8 02/26 1600 DC 03/01 N/A 1 UNIT IV 0838 Morphine Sulfate 1 MG Q4P PRN 02/26 0600 AC IV Moxifloxacin HCl 400 MG DAILY 03/01 1115 AC 03/01 PO 03/04 1001 1451 Multivitamins 1 TAB DAILY 02/28 1105 AC 03/01 PO 0940 Nystatin 5 ML 4 TIMES/DAY 02/28 1148 AC 03/01 PO 1836 Pantoprazole Sodium 40 MG DAILY 02/26 1418 AC 03/01 IV 0937 Potassium Chloride 40 MEQ ONCE ONE 03/01 0900 DC 03/01 PO 03/01 0901 0937 Prednisone 20 MG DAILY 03/01 1000 AC 03/01 PO 0937 Vital Signs & I&O Last 24 Hrs of Vitals and I&O: Vital Signs Date Time Temp Pulse Resp B/P B/P Pulse O2 O2 Flow FiO2 Mean Ox Delivery Rate 03/01 1825 96 Nasal 1.0L Cannula 03/01 1602 98.1 79 24 100/58 94 Nasal 2.0L Cannula 03/01 1600 94 Nasal 2.0L Cannula 03/01 0936 97 Nasal 2.0L Cannula 03/01 0800 Nasal 2.0L Cannula 03/01 0800 98.8 65 22 122/70 96 Nasal 2.0L Cannula 03/01 0000 Nasal 2.0L Cannula 02/28 2300 97.1 68 26 112/62 95 Nasal 2.0L Cannula 02/28 2045 96 Nasal 3.0L Cannula Intake & Output 03/01 1600 03/01 0800 03/01 0000 Intake Total 240 200 370 Output Total 100 Balance 240 200 270 Intake, IV 100 0 Intake, Oral 240 100 370 Number 1 2 1 Bowel Movements Output, Urine 100 Patient 102 lb Weight Impression/Plan Impression/Plan Impression/Plan: Physical Exam General Appearance Alert, Oriented X3, Cooperative, Mild Distress Skin scatterd erythematous and discoid lesions in the back 2x2 cm size in the lower back, non-itchy and not painful. chronic, biopsied and was reproted to be of autoimmune etiology. Skin Temp/Moisture Exam: Warm/Dry Sepsis Skin Exam (color): Normal for Ethnicity HEENT Atraumatic, EOMI, Mucous Membr. moist/pink, pupils round and equal, reactive to light. Neck Supple Cardiovascular Normal S1, Normal S2, 5/6 systolic murmur heard at aortic area, LSB and apex Lungs coarse crackled and rhonchi bilaterally Abdomen Normal Bowel Sounds, Soft, No Tenderness Neurological Normal Speech, Strength at 5/5 X4 Ext, Normal Tone, Sensation Intact, Cranial Nerves 3-12 NL Extremities No Edema, Normal Pulses, No Tenderness/Swelling Vascular Pulses Symmetrical ct chest reviewed IMPRESSION: 1. Limited evaluation due to extensive respiratory motion artifact. 2. Redemonstrated regions of subpleural reticulation bilaterally, in keeping with history of underlying interstitial lung disease. 3. There are multifocal regions of consolidation, most prominently in the lower lobes. Appearance may reflect multifocal pneumonia or aspiration; a component of edema cannot be excluded in the proper clinical setting. 4. Dilated main pulmonary artery, suggesting pulmonary hypertension. DICTATED BY: ALISE WAYNE MD DATE/TIME DICTATED:02/26/17527 IMPRESSION This is an elderly lady with the previous history of rheumatoid arthritis, previous methotrexate use, previous achalasia with recurrent GERD, worsening dementia, systolic ejection murmur, significant diastolic heart disease, severe preterminal ipf, diastolic heart, achalasia, has the following issue * Resolved Acute hypoxic resp failure due to bilateral pna prob aspiration vs HCAP with progressive pulm failure * Sepsis with hypotension due to pna and IPF with resp failure compounded by hypoadrenalism. now better * Worsening Significant pulmonary fibrosis which seems to be present for many years with multiple etiologies - which include rheumatoid arthritis causing ILD, previous methotrexate which may have induced ILD versus achalasia cardia with recurrent GERD. She also has had multiple autoimmune issues which include rheumatoid and recent skin issues which could be an inciting factor aswell. There is some mention of sarcoidosis in her history but she's never had a biopsy that I can see. * Significant achalasia with recurrent regurg, may be the cause of her pna * Rheumatoid arthritis and recent autoimmune skin disease, was on 10 mg of prednisone * Echocardiogram suggestive of small left ventricular cavity with stage I diastolic dysfunction with mild increase resting left ventricular outflow tract velocity with aortic stenosis with a sig murmur - with chf in the past with diastolic heart dx with high risk for pulm edema * Mild pulmonary hypertension with estimated PA pressure of 25 and echocardiogram * SIg macrocytosis and cbc highly suggestive of myelodysplasia * Sig RA REC Po abx Keep hob up Reduce prednisone to 15 mg for five days and then 10 mg Cont all meds Ok to dc soon, oob to chair and pt to see Will follow
--- NOTE | 2017-03-02 08:09 | PN- Housestaff ---
Subjective Follow-up For: Follow-up multilobar pneumonia Interstitial lung disease Rheumatoid arthritis Anemia Complaints: no complaints Tele-Events Since Last Visit: General med hold Subjective: Patient is seen and examined at the bedside. She was not having any active complaints. She wanted to go home. She is on 1 liter of oxygen, saturating 95%. Review of Systems Constitutional: Denies: no symptoms. Objective Last 24 Hrs of Vital Signs/I&O Vital Signs Date Time Temp Pulse Resp B/P B/P Pulse O2 O2 Flow FiO2 Mean Ox Delivery Rate 03/02 0831 97.9 67 22 120/60 95 Nasal Cannula 03/02 0800 Nasal 1.0L Cannula 03/02 0000 94 Nasal 1.0L Cannula 03/01 1825 96 Nasal 1.0L Cannula 03/01 1602 98.1 79 24 100/58 94 Nasal 2.0L Cannula 03/01 1600 94 Nasal 2.0L Cannula Intake & Output 03/02 1600 03/02 0800 03/02 0000 Intake Total 120 360 Output Total Balance 120 360 Intake, Oral 120 360 Number 1 2 Bowel Movements Physical Exam General Appearance: Alert, Oriented X3, Cooperative, Mild Distress Skin: multiple pustules at sacral area Cardiovascular: Normal S1, Normal S2 Lungs: leathery crackles Abdomen: Soft, No Tenderness Neurological: Normal Speech, she walks with assistance Extremities: No Clubbing, No Cyanosis, bilateral lower extremeties edema Assessment/Plan Assessment: Patient is a 76-year-old lady with PMH of dementia, end stage ILD, RA on prednisone, and sarcoidosis, who is BIBA to the ED due to worsening cough and fever. Plan: We are planning to have a family meeting for consideration of hospice care. Healthcare associated pneumonia leading to acute adrenal insufficiency * We will continue tablet Moxifloxacin for total 3 Days * Follow up blood cultures were negative * monitor vital signs every shift * Strict intake output charting End stage ILD * We'll continue 1 liter of oxygen, especially night time. * We'll keep SPO2 more than 92% * We will continue tablet prednisone 15milligrams daily x 5 days f/b tab prednisone 10mg daily. * TRC/Nebs as needed Hypokalemia - recovered * K-4.0 3-4 pustules at sacral region Patient denies any complaint of pain. There is no any surrounding rashes. The differential as can be herpes or pressure ulcer. Discussed with the temo and she wants to keep it dry. * We will follow it. * Advised to keep it dry. Nurse is aware. Diet -regular diet CODE STATUS-DNR/DNI DVT PROPHYLAXIS - [place] lovenox Problem List: 1. Anemia 2. Hypokalemia 3. Interstitial lung disease 4. Rheumatoid arthritis 5. Dementia Pain Ratin Pain Location: Generalized body, and the joints Pain Goal: Remain pain free Pain Plan: Oadi-yo-vagurypb, avoid NSAIDs Tomorrow's Labs & Rationales: not required DVT/Prophylaxis: mechanical, pharmacological
[2017-03-02] MEDS ORDERED: PREDNISONE10 M2 PO ×2 (08:27→14:04)
[2017-03-02 08:31] VITALS: BP 120/60
[2017-03-02] MEDS ORDERED: GUAIFENESIN ER600 MG PO (08:31)
[2017-03-02] MEDS ORDERED: ONE DAILY MULT1 EAC2 PO (08:31)
[2017-03-02] MEDS ORDERED: ALBUTEROL2.5 MG/3 M INH (08:31)
--- NOTE | 2017-03-02 08:34 | Cons- Rheumatology ---
General Information and HPI Consulting Request Date of Consult: 03/02/17 Requested By: FELICITY MCRAE,CHRIS Reason for Consult: Evaluater her rheumatoid arthritis Source of Information: patient, family, old records Exam Limitations: no limitations History of Present Illness: This is a 76-year-old white female who has rheumatoid arthritis which I diagnosed back in 1998. He was begun on methotrexate at that time but soon switched to leflunomide. This caused a rash so it was discontinued. Her arthritis was active at that time in her hands and wrists and she was begun on Enbrel. She did fairly well on this medication. He is later had to re-add the methotrexate because of rheumatoid activity. In the subsequent years she been on other biologic such as Humira and in 2007 through 2011 she was receiving rituximab infusions. He was found to have interstitial pulmonary disease and the question always came up as to whether was idiopathic, related to her rheumatoid arthritis, or related to methotrexate therapy. It was never firmly established as to the etiology. Currently she is in the hospital with pneumonia and pulmonary problems. I'm asked to see her to evaluate her rheumatoid arthritis and its activity. She was last seen 3-1/2 years ago in my office at which time she was on a minimal amount of methotrexate namely 5 mg once a week. Allergies/Medications Allergies: Coded Allergies: shellfish derived (Intermediate, SWELLING 01/29/17) Sulfa (Sulfonamide Antibiotics) (HIVES 01/29/17) iodamide (UNKNOWN 01/29/17) Home Med List: Albuterol Sulfate 2.5 MG/3 ML (0.083 %) VIAL.NEB 3 ML INH BID PRN Difficulty in breathing Calcium Carbonate/Vitamin D3 (Calcium 500 + D Tablet) 500 MG-400 TABLET 1 TAB PO DAILY supplement Cholecalciferol (Vitamin D3) 1,000 UNIT TABLET 2,000 IU PO DAILY Supplement Furosemide 20 MG TABLET 20 MG PO DAILY DIURETIC Guaifenesin (Guaifenesin ER) 600 MG TAB.ER.12H 1 TAB PO Q12 PRN cough Moxifloxacin HCl 400 MG TABLET 1 TAB PO DAILY pneumonia Multivitamin (One Daily Multivitamin) 1 EACH TABLET 1 TAB PO DAILY deficiency Omeprazole 20 MG CAPSULE.DR 40 MG PO DAILY AC GI PPX Prednisone 10 MG TABLET 10 MG PO DAILY RA 2tab once a day for 2 days (03/03/2017 - 03/04/2017) than 1tab once a day for next 10 days and meet with your mail room clerk for further management. Review of Systems Review of Systems: Is no history of recent fevers. She did have a rash on her face apparently seen by hog dropper several years ago. It is not clear but it was unlikely to be due to rheumatoid vasculitis or SLE. He has been requiring nasal oxygen during her stay now but this was not the case prior to her admission. 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 Home Who Do You Live With? child Services at Home: None Smoking Status: Unknown If Ever Smoked Exam & Diagnostic Data Vital Signs and I&O Vital Signs Date Time Temp Pulse Resp B/P B/P Pulse O2 O2 Flow FiO2 Mean Ox Delivery Rate 03/02 0000 94 Nasal 1.0L Cannula 03/01 1825 96 Nasal 1.0L Cannula 03/01 1602 98.1 79 24 100/58 94 Nasal 2.0L Cannula 03/01 1600 94 Nasal 2.0L Cannula 03/01 0936 97 Nasal 2.0L Cannula Intake & Output 03/02 1600 03/02 0800 03/02 0000 Intake Total 120 360 Output Total Balance 120 360 Intake, Oral 120 360 Number 1 2 Bowel Movements Physical Exam: On exam she is a frail alert elderly lady lying in bed with nasal oxygen. She currently denies any specific joint pains. Her hands revealed enlargement of the MCP joints of both hands with mild ulnar drift. She is able to make a fairly decent apron trimmer without any extreme tenderness of the MCP or PIP joints are also osteoarthritic changes bilaterally wrists have good range of motion as do her elbows. Her right shoulder is somewhat enlarged with limited range of motion but not tender. Left shoulder has better range of motion. Her hips have fairly good range of motion as do her knees which are not swollen or tender. Her feet reveal typical rheumatoid deformities of the MTP joints but minimal tenderness. Assessment/Plan Assessment: Overall Mrs. Galan was rheumatoid arthritis has been present for over 18 years. Currently there does not seem to be significant activity to warrant her going onto a DMARD or Biologics or steroids. He is currently receiving prednisone for her pulmonary problems. She is also on hydrocodone and antibiotics moxifloxacin and metronidazole. Recommendations: Have no medication recommendations other than analgesics when necessary for pain and to mobilize her as much as possible. It should be noted that she also has known osteoporosis and had been treated in the past in 2010 specifically with Reclast. Consult Acknowledgment - Thank you for your consult request.
--- NOTE | 2017-03-02 10:33 | PN- Att Addend ---
Attending Addendum Attending Brief Note Patient seen and examined. Plan of care discussed with the medical team and the patient. Available lab work and radiology test reports were reviewed. Patient currently on oxygen and she appears comfortable. She is found to be sitting in chair and eating her breakfast. She is awake and alert follows command. She appears less tachypneic than yesterday. She wants to go home today. Vital Signs Date Time Temp Pulse Resp B/P B/P Pulse O2 O2 Flow FiO2 Mean Ox Delivery Rate 03/02 0831 97.9 67 22 120/60 95 Nasal Cannula 03/02 0800 Nasal 1.0L Cannula 03/02 0000 94 Nasal 1.0L Cannula 03/01 1825 96 Nasal 1.0L Cannula 03/01 1602 98.1 79 24 100/58 94 Nasal 2.0L Cannula 03/01 1600 94 Nasal 2.0L Cannula Intake & Output 03/02 1600 03/02 0800 03/02 0000 Intake Total 120 360 Output Total Balance 120 360 Intake, Oral 120 360 Number 1 2 Bowel Movements Exam: General: Patient awake alert oriented without any distress CVS: S1 plus S2 without any murmur or gallops Chest: Bilateral crepitations without any wheeze. There is no respiratory distress. Abdomen: Soft nontender, bowel sound present, no guarding or rebound MANAGER RELATIONSHIP: Awake alert oriented without any focal neuro deficit and follows command appropriately Extremities: No edema; no clubbing or cyanosis noted Laboratory Tests 03/02 0734 Chemistry Sodium (137 - 145 mmol/L) 142 Potassium (3.5 - 5.1 mmol/L) 4.0 Chloride (98 - 107 mmol/L) 113 H Carbon Dioxide (22 - 30 mmol/L) 26 Anion Gap (5 - 16) 2 L BUN (7 - 17 mg/dL) 13 Creatinine (0.5 - 1.0 mg/dL) 0.6 Estimated GFR (>60 ml/min) > 60 BUN/Creatinine Ratio (7 - 25 %) 21.7 Assessment * Multilobar pneumonia * History of interstitial lung disease- the end-stage, patient's family is interested in hospice evaluation and palliative care assessment * Acute respiratory failure and hypoxia * Mild hypokalemia Plan * Continue moxifloxacin oral 2 more days * Patient be going home with oxygen * Out of bed and ambulate with assist with a walker * Plan is to discharge patient home today * [facility] can go [facility] for palliative care assessment
--- NOTE | 2017-03-02 10:46 | PN- Cardiology ---
Subjective Subjective: States that she is feeling improved, as far as her breathing is concerned, and is anxious for discharge. Denies any chest discomfort, palpitations, lower extremity edema, etc. Taken off telemetry on 02/28/2017. Objective Vital Signs and I&Os Vital Signs Date Time Temp Pulse Resp B/P B/P Pulse O2 O2 Flow FiO2 Mean Ox Delivery Rate 03/02 0831 97.9 67 22 120/60 95 Nasal Cannula 03/02 0800 Nasal 1.0L Cannula 03/02 0000 94 Nasal 1.0L Cannula 03/01 1825 96 Nasal 1.0L Cannula 03/01 1602 98.1 79 24 100/58 94 Nasal 2.0L Cannula 03/01 1600 94 Nasal 2.0L Cannula Intake & Output 03/02 1600 03/02 0800 03/02 0000 03/01 1600 03/01 0800 03/01 0000 Intake Total 120 360 240 200 370 Output Total 100 Balance 120 360 240 200 270 Intake, IV 100 0 Intake, Oral 120 360 240 100 370 Number 1 2 1 2 1 Bowel Movements Output, Urine 100 Patient 102 lb Weight Physical Exam: Chronically ill-appearing elderly female in no acute distress with nasal oxygen in place. Vital signs: See above. Lungs: Bilateral crackles and occasional rhonchi right greater than left Heart: S1, S2 with grade 2/6 systolic ejection murmur. Abdomen: Soft, nontender, positive bowel sounds. Extremities: No edema. Current Medications: Current Medications Sig/Vanessa Start time Last Medication Dose Route Stop Time Status Admin Acetaminophen 650 MG Q6P PRN 02/26 06 AC PO Acetaminophen/ 1 TAB Q6P PRN 02/26 600 AC Hydrocodone Bitart PO Albuterol Sulfate 3 ML BID 02/28 2200 AC 03/02 INH 1028 Ceftazidime 1,000 MG 0445,1645 02/26 1645 DC 03/01 IV 0520 Enoxaparin Sodium 40 MG DAILY 02/26 1000 AC 03/02 SC 0922 Guaifenesin 600 MG Q12 02/26 1000 AC 03/02 PO 0922 Metronidazole 500 MG IQ8 02/26 1600 DC 03/01 N/A 1 UNIT IV 0838 Morphine Sulfate 1 MG Q4P PRN 02/26 06 AC IV Moxifloxacin HCl 400 MG DAILY 03/01 1115 AC 03/02 PO 03/04 1001 0922 Multivitamins 1 TAB DAILY 02/28 1105 AC 03/02 PO 0922 Nystatin 5 ML 4 TIMES/DAY 02/28 1148 AC 03/02 PO 0922 Pantoprazole Sodium 40 MG DAILY 02/26 1418 AC 03/02 IV 0922 Prednisone 20 MG DAILY 03/01 1000 AC 03/02 PO 0922 Results Last 48 Hrs of Labs/Mics: Laboratory Tests 03/02/17 0734: Anion Gap 2 L, Estimated GFR > 60, BUN/Creatinine Ratio 21.7 03/01/17 0646: Anion Gap 4 L, Estimated GFR > 60, BUN/Creatinine Ratio 26.7 H, CBC w Diff MAN DIFF ORDERED, RBC 2.20 L, MCV 118.2 H, MCH 39.8 H, RDW 22.3 H, MPV 10.1, Gran % 78.4 H, Lymphocytes % 20.4 L, Monocytes % 1.0 L, Eosinophils % 0.1, Basophils % 0.1, Absolute Granulocytes 6.2, Segmented Neutrophils 58, Band Neutrophils 10 H, Absolute Lymphocytes 1.6, Lymphocytes 23, Absolute Monocytes 0.1 L, Absolute Eosinophils 0, Absolute Basophils 0, Metamyelocytes 9 H, Poikilocytosis 1+, Anisocytosis 2+, Macrocytic Cells 4+, PUBS MCHC 33.6 02/28/17 1440: Recent Imaging Studies: Chest CT (02/26/2017): 1. Limited evaluation due to extensive respiratory motion artifact. 2. Redemonstrated regions of subpleural reticulation bilaterally, in keeping with history of underlying interstitial lung disease. 3. There are multifocal regions of consolidation, most prominently in the lower lobes. Appearance may reflect multifocal pneumonia or aspiration; a component of edema cannot be excluded in the proper clinical setting. 4. Dilated main pulmonary artery, suggesting pulmonary hypertension. Echocardiogram (01/31/2017): 1. Small left ventricular cavity. Mild concentric left ventricular hypertrophy. No obvious regional wall motion abnormalities. Normal left ventricular ejection fraction visually estimated at>65%. Abnormal relaxation filling pattern of the left ventricle for age (stage 1 diastolic dysfunction). Mildly increased resting left ventricular outflow tract velocity (1.5 m/s). 2. Normal right ventricular size and function. 3. Normal right atrial size. Mild left atrial dilatation. 4. Systolic anterior motion (CALEB). Mild mitral regurgitation. Mild mitral stenosis. 5. Mild aortic stenosis. Trace to mild aortic regurgitation. 6. Trace to mild tricuspid regurgitation. No evidence of pulmonary hypertension. 7. Mild pulmonic regurgitation. 8. Mildly dilated proximal ascending aorta (tube). Assessment/Plan Assessment/Plan [id number] w/ hx HTN, s/p hysterectomy, sarcoidosis, ILD, achalasia, RA, a vague history of [place] at 32 years, and dementia who was recently hospitalized here (-02/03/2017) with progressive shortness of breath, ultimately felt to be on a multifactorial basis (progressive ILD, HFpEF, etc.) and who was readmitted () with productive cough, shortness of breath, fever, etc. felt to be secondary to multilobar pneumonia. She feels improved, but has received a significant amount of volume and, as such , would repeat a CXR prior to discharge given her previous suspected HFpEF. Continue to follow-up on pulmonary recommendations regarding oxygen, antimicrobial therapy, steroids, TRC, etc. Continue telemetry? Not applicable
--- NOTE | 2017-03-02 12:27 | NUR ---
WOUND CARE: REQUESTED BY NURSING STAFF TO EVALUATE PT FOR SKIN ALTERATIONS PRESENT ON ADMISSION TO BUTTOCKS AND COCCYX REGION - PT EVALUATED WITH ASSISTANCE OF RN JEFF TO RECLINCER CHAIR - HX OBTAINED FROM PT - PT STATED SHE HAS HAD HX OF RASHES IN PAST AND SHINGLES IN PAST WELL - UPON ASSESSMENT, PT NOTED WTIH A FLAT MACULAR HYPERPIGMENTED CIRCULAR SHAPED PATCHES TO YASMEEN BUTTOCKS REGION - COCCYX NOTED WITH A 3 CM AREA OF CLUSTERED PUS FILLED BLISTERS SIMILAR PRESENTATION TO SHINGLES RASH - (2) MDS CALLED IN TO ASSESS AND BE MADE AWARE OF PT SKIN INTEGRITY - PT DENIES C/O DISCOMFORT, ITCHING OR BURNING - ? HERPES VS RHEUMATOID VASCULITIS RASH RECOMMENDATION: DERMATOLGY TO EVALUATE AND RECOMMEND TX DIRECTED - IN INTERIM, KEEP DRY AND MAY PAINT WITH BETADIDE SWAB DAILY - CONT WTIH OFFLOADING
[2017-03-02 17:23] VITALS: BP 98/66
--- NOTE | 2017-03-02 18:27 | PN- Pulmonary ---
Subjective HPI/Critical Care Issues: States that she is feeling improved, as far as her breathing is concerned, and is anxious for discharge. Denies any chest discomfort, palpitations, lower extremity edema, etc. Taken off telemetry on 02/28/2017. Objective Current Medications: Current Medications Sig/Vanessa Start time Last Medication Dose Route Stop Time Status Admin Acetaminophen 650 MG Q6P PRN 02/26 06 AC PO Acetaminophen/ 1 TAB Q6P PRN 02/26 06 AC Hydrocodone Bitart PO Albuterol Sulfate 3 ML BID 02/28 2200 AC 03/02 INH 1028 Enoxaparin Sodium 40 MG DAILY 02/26 1000 AC 03/02 SC 0922 Guaifenesin 600 MG Q12 02/26 1000 AC 03/02 PO 0922 Morphine Sulfate 1 MG Q4P PRN 02/26 06 AC IV Moxifloxacin HCl 400 MG DAILY 03/01 1115 AC 03/02 PO 03/04 1001 0922 Multivitamins 1 TAB DAILY 02/28 1105 AC 03/02 PO 0922 Nystatin 5 ML 4 TIMES/DAY 02/28 1148 AC 03/02 PO 1550 Pantoprazole Sodium 40 MG DAILY 02/26 1418 AC 03/02 IV 0922 Prednisone 20 MG DAILY 03/01 1000 AC 03/02 PO 0922 Vital Signs & I&O Last 24 Hrs of Vitals and I&O: Vital Signs Date Time Temp Pulse Resp B/P B/P Pulse O2 O2 Flow FiO2 Mean Ox Delivery Rate 03/02 1723 98.9 75 20 98/66 95 Nasal 1.0L Cannula 03/02 0831 97.9 67 22 120/60 95 Nasal Cannula 03/02 0800 Nasal 1.0L Cannula 03/02 0000 94 Nasal 1.0L Cannula Intake & Output 03/02 1600 03/02 0800 03/02 0000 Intake Total 390 120 360 Output Total Balance 390 120 360 Intake, IV 30 Intake, Oral 360 120 360 Number 3 1 2 Bowel Movements Impression/Plan Impression/Plan Impression/Plan: Physical Exam General Appearance Alert, Oriented X3, Cooperative, Mild Distress Skin scatterd erythematous and discoid lesions in the back 2x2 cm size in the lower back, non-itchy and not painful. chronic, biopsied and was reproted to be of autoimmune etiology. Skin Temp/Moisture Exam: Warm/Dry Sepsis Skin Exam (color): Normal for Ethnicity HEENT Atraumatic, EOMI, Mucous Membr. moist/pink, pupils round and equal, reactive to light. Neck Supple Cardiovascular Normal S1, Normal S2, 5/6 systolic murmur heard at aortic area, LSB and apex Lungs coarse crackled and rhonchi bilaterally Abdomen Normal Bowel Sounds, Soft, No Tenderness Neurological Normal Speech, Strength at 5/5 X4 Ext, Normal Tone, Sensation Intact, Cranial Nerves 3-12 NL Extremities No Edema, Normal Pulses, No Tenderness/Swelling Vascular Pulses Symmetrical ct chest reviewed IMPRESSION: 1. Limited evaluation due to extensive respiratory motion artifact. 2. Redemonstrated regions of subpleural reticulation bilaterally, in keeping with history of underlying interstitial lung disease. 3. There are multifocal regions of consolidation, most prominently in the lower lobes. Appearance may reflect multifocal pneumonia or aspiration; a component of edema cannot be excluded in the proper clinical setting. 4. Dilated main pulmonary artery, suggesting pulmonary hypertension. DICTATED BY: ALISE WAYNE MD DATE/TIME DICTATED:02/26/17527 IMPRESSION This is an elderly lady with the previous history of rheumatoid arthritis, previous methotrexate use, previous achalasia with recurrent GERD, worsening dementia, systolic ejection murmur, significant diastolic heart disease, severe preterminal ipf, diastolic heart, achalasia, has the following issue * Resolved Acute hypoxic resp failure due to bilateral pna prob aspiration vs HCAP with progressive pulm failure * Sepsis with hypotension due to pna and IPF with resp failure compounded by hypoadrenalism. now better * Worsening Significant pulmonary fibrosis which seems to be present for many years with multiple etiologies - which include rheumatoid arthritis causing ILD, previous methotrexate which may have induced ILD versus achalasia cardia with recurrent GERD. She also has had multiple autoimmune issues which include rheumatoid and recent skin issues which could be an inciting factor aswell. There is some mention of sarcoidosis in her history but she's never had a biopsy that I can see. * Significant achalasia with recurrent regurg, may be the cause of her pna * Rheumatoid arthritis and recent autoimmune skin disease, was on 10 mg of prednisone * Echocardiogram suggestive of small left ventricular cavity with stage I diastolic dysfunction with mild increase resting left ventricular outflow tract velocity with aortic stenosis with a sig murmur - with chf in the past with diastolic heart dx with high risk for pulm edema * Mild pulmonary hypertension with estimated PA pressure of 25 and echocardiogram * SIg macrocytosis and cbc highly suggestive of myelodysplasia * Sig RA REC Po abx Keep hob up Reduce prednisone to 15 mg for five days and then 10 mg, then to 5 Cont all meds Ok to dc soon, oob to chair and pt to see Will follow
[2017-03-02 23:01] VITALS: BP 108/64
--- NOTE | 2017-03-03 07:38 | PN- Housestaff ---
Subjective Follow-up For: Hospital-acquired pneumonia/multilobar pneumonia Interstitial lung disease Rheumatoid arthritis Complaints: no complaints Tele-Events Since Last Visit: General medicine hold Subjective: Patient was seen and examined at the bedside. She does not have any active complaints. According to her, she slept well overnight. Review of Systems Constitutional: Denies: no symptoms. Comments: Patient is a very anxiouse to go to home Objective Last 24 Hrs of Vital Signs/I&O Vital Signs Date Time Temp Pulse Resp B/P B/P Pulse O2 O2 Flow FiO2 Mean Ox Delivery Rate 03/03 0000 Nasal 1.0L Cannula 03/02 2301 98.6 74 20 108/64 97 Nasal Cannula 03/02 1945 96 Nasal 1.0L Cannula 03/02 1723 98.9 75 20 98/66 95 Nasal 1.0L Cannula 03/02 1600 96 Nasal 1.0L Cannula 03/02 0831 97.9 67 22 120/60 95 Nasal Cannula 03/02 0800 Nasal 1.0L Cannula Intake & Output 03/03 0800 03/03 0000 03/02 1600 Intake Total 400 390 Output Total Balance 400 390 Intake, IV 30 Intake, Oral 400 360 Number 1 1 3 Bowel Movements Physical Exam General Appearance: Alert, Oriented X3, Cooperative, Mild Distress Cardiovascular: Normal S1, Normal S2 Lungs: bilateral Leathery crackles Abdomen: Soft, No Tenderness Neurological: Normal Speech Extremities: No Clubbing, No Cyanosis, No Edema Current Medications: Current Medications Sig/Vanessa Start time Last Medication Dose Route Stop Time Status Admin Acetaminophen 650 MG Q6P PRN 02/26 06 AC PO Acetaminophen/ 1 TAB Q6P PRN 02/26 06 AC Hydrocodone Bitart PO Albuterol Sulfate 3 ML BID 02/28 2200 AC 03/02 INH 1927 Enoxaparin Sodium 40 MG DAILY 02/26 1000 AC 03/02 SC 0922 Guaifenesin 600 MG Q12 02/26 1000 AC 03/02 PO 2123 Morphine Sulfate 1 MG Q4P PRN 02/26 06 AC IV Moxifloxacin HCl 400 MG DAILY 03/01 1115 AC 03/02 PO 03/04 1001 0922 Multivitamins 1 TAB DAILY 02/28 1105 AC 03/02 PO 0922 Nystatin 5 ML 4 TIMES/DAY 02/28 1148 AC 03/02 PO 2123 Pantoprazole Sodium 40 MG DAILY 02/26 1418 AC 03/02 IV 0922 Prednisone 10 MG DAILY 03/08 1000 AC PO 03/13 0959 Prednisone 15 MG DAILY 03/03 1000 CAN PO 03/13 0959 Prednisone 15 MG DAILY 03/03 1000 AC PO 03/08 0959 Prednisone 20 MG DAILY 03/01 1000 DC 03/02 PO 0922 Assessment/Plan Assessment: Patient is a 76-year-old lady with PMH of dementia, end stage ILD, RA on prednisone, and sarcoidosis, who is BIBA to the ED due to worsening cough and fever. Plan: Family decided to go for home hospice care, and we are planning to discharge her on wednesday, on family request. Healthcare associated pneumonia leading to acute adrenal insufficiency * We will continue tablet Moxifloxacin for total 3 Days * Follow up blood cultures were negative * monitor vital signs every shift * Strict intake output charting * Stopped IV pantoprazole and started on Omeprazole 40mg Po OD End stage ILD * We'll continue 1 liter of oxygen, especially night time. * We'll keep SPO2 more than 92% * We will continue tablet prednisone 15milligrams daily x 5 days f/b tab prednisone 10mg daily. * TRC/Nebs as needed Hypokalemia - recovered * K-4.0 3-4 pustules at sacral region Patient denies any complaint of pain. There is no any surrounding rashes. The differential as can be herpes or pressure ulcer. Discussed with the temo and she rcms to keep it dry. * We will follow it. * Advised to keep it dry. Nurse is aware. Diet -regular diet CODE STATUS-DNR/DNI DVT PROPHYLAXIS - SC lovenox Problem List: 1. Anemia 2. Hypokalemia 3. CHF (congestive heart failure) 4. Pneumonia 5. Interstitial lung disease Pain Ratin Pain Location: joints Pain Goal: Remain pain free Pain Plan: mild to moderate, avoid NSAIDs Tomorrow's Labs & Rationales: not required DVT/Prophylaxis: mechanical, pharmacological
[2017-03-03 08:34] VITALS: BP 140/90
[2017-03-03 08:40] VITALS: BP 142/70
--- NOTE | 2017-03-03 09:41 | NUR ---
NOTIIFIED MEDICAL TEAM, DR BLEVINS OF PATIENT HAD TWO SOFT BOWEL MOVEMENTS THIS MORNING. AT THIS TIME PER TEAM TO MONITOR BM'S AND IF BECOMES WATERY THEN THEY WOULD DECIDE IF NEED TO SEND TO LAB.
--- NOTE | 2017-03-03 13:32 | PN- Att Addend ---
Attending Addendum Attending Brief Note Patient seen and examined. Plan of care discussed with the medical team and the patient. Available lab work and radiology test reports were reviewed. Patient currently on oxygen and she appears comfortable. She is found to be sitting in chair. She is repeatedly asking to go home. She is awake and alert follows command. She appears anxious but less tachypneic than yesterday. Vital Signs Date Time Temp Pulse Resp B/P B/P Pulse O2 O2 Flow FiO2 Mean Ox Delivery Rate 03/03 0855 96 Nasal 1.0L Cannula 03/03 0840 142/70 03/03 0834 98.1 60 20 140/90 96 Nasal 1.0L Cannula 03/03 0800 Nasal 1.0L Cannula 03/03 0000 Nasal 1.0L Cannula 03/02 2301 98.6 74 20 108/64 97 Nasal Cannula 03/02 1945 96 Nasal 1.0L Cannula 03/02 1723 98.9 75 20 98/66 95 Nasal 1.0L Cannula 03/02 1600 96 Nasal 1.0L Cannula Intake & Output 03/03 1600 03/03 0800 03/03 0000 Intake Total 400 Output Total Balance 400 Intake, Oral 400 Number 3 1 1 Bowel Movements Exam: General: Patient awake alert oriented without any distress CVS: S1 plus S2 without any murmur or gallops Chest: Bilateral crepitations without any wheeze. There is no respiratory distress. Abdomen: Soft nontender, bowel sound present, no guarding or rebound TOMATO PULPER OPERATOR: Awake alert oriented without any focal neuro deficit and follows command appropriately Extremities: No edema; no clubbing or cyanosis noted Labs done today. Assessment * Multilobar pneumonia suspected gram-negative etiology * History of interstitial lung disease- the end-stage, patient has been assessed by hospice * Acute respiratory failure and hypoxia * Mild hypokalemia Plan * Continue moxifloxacin oral 1 more days * Patient be going home with oxygen * Out of bed and ambulate with assist with a walker * Plan is to discharge patient home was family has made arrangement; patient likely will be going home with home hospice
--- NOTE | 2017-03-03 13:39 | PN- Pulmonary ---
Subjective HPI/Critical Care Issues: Anxious wishes to go home Objective Current Medications: Current Medications Sig/Vanessa Start time Last Medication Dose Route Stop Time Status Admin Acetaminophen 650 MG Q6P PRN 02/26 06 AC PO Acetaminophen/ 1 TAB Q6P PRN 02/26 06 AC Hydrocodone Bitart PO Albuterol Sulfate 3 ML BID 02/28 2200 AC 03/03 INH 0843 Enoxaparin Sodium 40 MG DAILY 02/26 1000 AC 03/03 SC 0905 Guaifenesin 600 MG Q12 02/26 1000 AC 03/03 PO 0904 Morphine Sulfate 1 MG Q4P PRN 02/26 06 AC IV Moxifloxacin HCl 400 MG DAILY 03/01 1115 AC 03/03 PO 03/04 1001 0904 Multivitamins 1 TAB DAILY 02/28 1105 AC 03/03 PO 0904 Nystatin 5 ML 4 TIMES/DAY 02/28 1148 AC 03/03 PO 1331 Omeprazole 40 MG DAILY AC 03/03 0900 AC 03/03 PO 0912 Pantoprazole Sodium 40 MG DAILY 02/26 1418 DC 03/02 IV 0922 Prednisone 10 MG DAILY 03/08 1000 AC PO 03/13 0959 Prednisone 15 MG DAILY 03/03 1000 CAN PO 03/13 0959 Prednisone 15 MG DAILY 03/03 1000 AC 03/03 PO 03/08 0959 0904 Prednisone 20 MG DAILY 03/01 1000 DC 03/02 PO 0922 Vital Signs & I&O Last 24 Hrs of Vitals and I&O: Vital Signs Date Time Temp Pulse Resp B/P B/P Pulse O2 O2 Flow FiO2 Mean Ox Delivery Rate 03/03 0855 96 Nasal 1.0L Cannula 03/03 0840 142/70 03/03 0834 98.1 60 20 140/90 96 Nasal 1.0L Cannula 03/03 0800 Nasal 1.0L Cannula 03/03 0000 Nasal 1.0L Cannula 03/02 2301 98.6 74 20 108/64 97 Nasal Cannula 03/02 1945 96 Nasal 1.0L Cannula 03/02 1723 98.9 75 20 98/66 95 Nasal 1.0L Cannula 03/02 1600 96 Nasal 1.0L Cannula Intake & Output 03/03 1600 03/03 0800 03/03 0000 Intake Total 400 Output Total Balance 400 Intake, Oral 400 Number 3 1 1 Bowel Movements Impression/Plan Impression/Plan Impression/Plan: Physical Exam General Appearance Alert, Oriented X3, Cooperative, Mild Distress Skin scatterd erythematous and discoid lesions in the back 2x2 cm size in the lower back, non-itchy and not painful. chronic, biopsied and was reproted to be of autoimmune etiology. Skin Temp/Moisture Exam: Warm/Dry Sepsis Skin Exam (color): Normal for Ethnicity HEENT Atraumatic, EOMI, Mucous Membr. moist/pink, pupils round and equal, reactive to light. Neck Supple Cardiovascular Normal S1, Normal S2, 5/6 systolic murmur heard at aortic area, LSB and apex Lungs coarse crackled and rhonchi bilaterally Abdomen Normal Bowel Sounds, Soft, No Tenderness Neurological Normal Speech, Strength at 5/5 X4 Ext, Normal Tone, Sensation Intact, Cranial Nerves 3-12 NL Extremities No Edema, Normal Pulses, No Tenderness/Swelling Vascular Pulses Symmetrical ct chest reviewed IMPRESSION: 1. Limited evaluation due to extensive respiratory motion artifact. 2. Redemonstrated regions of subpleural reticulation bilaterally, in keeping with history of underlying interstitial lung disease. 3. There are multifocal regions of consolidation, most prominently in the lower lobes. Appearance may reflect multifocal pneumonia or aspiration; a component of edema cannot be excluded in the proper clinical setting. 4. Dilated main pulmonary artery, suggesting pulmonary hypertension. DICTATED BY: ALISE WAYNE MD DATE/TIME DICTATED:02/26/17527 IMPRESSION This is an elderly lady with the previous history of rheumatoid arthritis, previous methotrexate use, previous achalasia with recurrent GERD, worsening dementia, systolic ejection murmur, significant diastolic heart disease, severe preterminal ipf, diastolic heart, achalasia, has the following issue * Resolved Acute hypoxic resp failure due to bilateral pna prob aspiration vs HCAP with progressive pulm failure * Sepsis with hypotension due to pna and IPF with resp failure compounded by hypoadrenalism. now better * Worsening Significant pulmonary fibrosis which seems to be present for many years with multiple etiologies - which include rheumatoid arthritis causing ILD, previous methotrexate which may have induced ILD versus achalasia cardia with recurrent GERD. She also has had multiple autoimmune issues which include rheumatoid and recent skin issues which could be an inciting factor aswell. There is some mention of sarcoidosis in her history but she's never had a biopsy that I can see. * Significant achalasia with recurrent regurg, may be the cause of her pna * Rheumatoid arthritis and recent autoimmune skin disease, was on 10 mg of prednisone * Echocardiogram suggestive of small left ventricular cavity with stage I diastolic dysfunction with mild increase resting left ventricular outflow tract velocity with aortic stenosis with a sig murmur - with chf in the past with diastolic heart dx with high risk for pulm edema * Mild pulmonary hypertension with estimated PA pressure of 25 and echocardiogram * SIg macrocytosis and cbc highly suggestive of myelodysplasia * Sig RA REC Po abx Keep hob up Reduce prednisone slowly Cont all meds Ok to dc soon, oob to chair and pt to see Will follow as out pt if she improves
[2017-03-03 16:53] VITALS: BP 110/60
[2017-03-04 08:25] VITALS: BP 142/70
--- NOTE | 2017-03-04 08:26 | PN- Housestaff ---
Subjective Follow-up For: Hospital-acquired pneumonia/multilobar pneumonia Interstitial lung disease Rheumatoid arthritis Complaints: no complaints Tele-Events Since Last Visit: General Medicine Hold Subjective: Patient is seen and examined at the bedside. She does not have any active complain. She is on 1 liter oxygen, saturating 92-95%. She looks tachypneic, but she denies any shortness of breath and she thinks it is usual for her. Review of Systems Constitutional: Denies: no symptoms. Objective Last 24 Hrs of Vital Signs/I&O Vital Signs Date Time Temp Pulse Resp B/P B/P Pulse O2 O2 Flow FiO2 Mean Ox Delivery Rate 03/04 1600 98.3 76 20 110/70 96 Nasal 1.0L Cannula 03/04 0905 94 Nasal 1.0L Cannula 03/04 0825 98.3 58 20 142/70 95 03/04 0800 95 Nasal 1.0L Cannula 03/04 0000 Nasal 1.0L Cannula 03/03 1835 96 Nasal 1.0L Cannula Intake & Output 03/04 1600 03/04 0800 03/04 0000 Intake Total 400 290 Output Total Balance 400 290 Intake, Oral 400 290 Number 1 1 Bowel Movements Physical Exam General Appearance: Alert, Oriented X3, Cooperative Cardiovascular: Normal S1, Normal S2 Lungs: bilateral leathery crackles Abdomen: Soft, No Tenderness Neurological: Normal Speech Extremities: No Clubbing, No Cyanosis, No Edema Vascular: Normal Pulses, Pulses Symmetrical Current Medications: Current Medications Sig/Vanessa Start time Last Medication Dose Route Stop Time Status Admin Acetaminophen 650 MG Q6P PRN 02/26 06 AC PO Acetaminophen/ 1 TAB Q6P PRN 02/26 06 AC Hydrocodone Bitart PO Albuterol Sulfate 3 ML BID 02/28 2200 AC 03/04 INH 0905 Enoxaparin Sodium 40 MG DAILY 02/26 1000 AC 03/04 SC 1042 Guaifenesin 600 MG Q12 02/26 1000 AC 03/04 PO 1041 Lorazepam 0.5 MG Q8P PRN 03/04 1245 AC PO 03/11 1244 Morphine Sulfate 1 MG Q4P PRN 02/26 06 AC IV Moxifloxacin HCl 400 MG DAILY 03/01 1115 DC 03/04 PO 03/04 1001 1042 Multivitamins 1 TAB DAILY 02/28 1105 AC 03/04 PO 1041 Nystatin 5 ML 4 TIMES/DAY 02/28 1148 DC 03/04 PO 1040 Omeprazole 40 MG DAILY AC 03/03 0900 AC 03/04 PO 0634 Prednisone 10 MG DAILY 03/08 1000 AC PO 03/13 0959 Prednisone 15 MG DAILY 03/03 1000 AC 03/04 PO 03/08 0959 1041 Assessment/Plan Assessment: Patient is a 76-year-old lady with PMH of dementia, end stage ILD, RA on prednisone, and sarcoidosis, who is BIBA to the ED due to worsening cough and fever. Plan: Family decided to go for home hospice care, and we are planning to discharge her on wednesday, on family request. Healthcare associated pneumonia leading to acute adrenal insufficiency * Pt completed the course of Moxifloxacin. * Follow up blood cultures were negative * monitor vital signs every shift * Strict intake output charting * Continue Omeprazole 40mg PO OD End stage ILD * We'll continue 1 liter of oxygen, especially night time. * We'll keep SPO2 more than 92% * We will continue tablet prednisone 15milligrams daily x 5 days f/b tab prednisone 10mg daily. * TRC/Nebs as needed Hypokalemia - recovered * K-4.0 3-4 pustules at sacral region Patient denies any complaint of pain. There is no any surrounding rashes. The differential as can be herpes or pressure ulcer. Discussed with the etmo and she rcms to keep it dry. * We will follow it. * Advised to keep it dry. Nurse is aware. Anxiety * we started patient on Ativan 0.5mg Q8P Diet -regular diet CODE STATUS-DNR/DNI DVT PROPHYLAXIS - SC lovenox Problem List: 1. Interstitial lung disease 2. Dementia Pain Ratin Pain Location: not applicable Pain Goal: Remain pain free Pain Plan: Avoid NSAIDS Tomorrow's Labs & Rationales: Not required as patient is going to discharge tmr DVT/Prophylaxis: mechanical, pharmacological
--- NOTE | 2017-03-04 10:58 | PN- Att Addend ---
Attending Addendum Attending Brief Note Patient seen and examined. Plan of care discussed with the medical team and the patient. Available lab work and radiology test reports were reviewed. Patient currently on oxygen and she appears comfortable. She is awake and alert follows command. She appears anxious but less tachypneic than yesterday. Vital Signs Date Time Temp Pulse Resp B/P B/P Pulse O2 O2 Flow FiO2 Mean Ox Delivery Rate 03/04 0905 94 Nasal 1.0L Cannula 03/04 0825 98.3 58 20 142/70 95 03/04 0000 Nasal 1.0L Cannula 03/03 1835 96 Nasal 1.0L Cannula 03/03 1653 98.1 72 20 110/60 95 Nasal 1.0L Cannula 03/03 1600 Nasal 1.0L Cannula Intake & Output 03/04 1600 03/04 0800 03/04 0000 Intake Total 290 Output Total Balance 290 Intake, Oral 290 Number 1 Bowel Movements Exam: General: Patient awake alert oriented without any distress CVS: S1 plus S2 without any murmur or gallops Chest: Bilateral crepitations without any wheeze. There is no respiratory distress. 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 Assessment * Multilobar pneumonia suspected gram-negative etiology- patient currently off antibiotics * History of interstitial lung disease- the end-stage, patient has been assessed by hospice * Acute respiratory failure and hypoxia * Mild hypokalemia Plan * Patient be going home with oxygen * Out of bed and ambulate with assist with a walker * Plan is to discharge patient home when family has made arrangements; patient likely will be going home with home hospice tomorrow * Add low-dose Ativan 0.5 mg when necessary for anxiety 3 times a day
[2017-03-04 16:00] VITALS: BP 110/70
[2017-03-04 23:55] VITALS: BP 124/54
--- NOTE | 2017-03-05 05:52 | PN- Housestaff ---
Subjective Follow-up For: f/u pneumonia Complaints: no complaints Subjective: Patient is seen and examined at the bedside. She denies of any active complaints. Review of Systems Constitutional: Denies: no symptoms. Objective Last 24 Hrs of Vital Signs/I&O Vital Signs Date Time Temp Pulse Resp B/P B/P Pulse O2 O2 Flow FiO2 Mean Ox Delivery Rate 03/05 0924 98 Nasal 1.0L Cannula 03/05 0855 98.1 67 20 120/62 94 Nasal 1.0L Cannula 03/05 0800 92 Nasal 1.0L Cannula 03/04 2355 98.3 73 20 124/54 90 Room Air 03/04 1943 97 Nasal 1.0L Cannula Intake & Output 03/05 1600 03/05 0800 03/05 0000 Intake Total 100 Output Total Balance 100 Intake, Oral 100 Physical Exam General Appearance: Alert, Oriented X3, Cooperative, Mild Distress Cardiovascular: Normal S1, Normal S2, murmur present Lungs: bilateral leathery crackles Abdomen: Soft, No Tenderness Extremities: No Clubbing, No Cyanosis, No Edema Current Medications: Current Medications Sig/Vanessa Start time Last Medication Dose Route Stop Time Status Admin Acetaminophen 650 MG Q6P PRN 02/26 06 DCD PO Acetaminophen/ 1 TAB Q6P PRN 02/26 06 DC Hydrocodone Bitart PO Albuterol Sulfate 3 ML BID PRN 03/05 0900 CAN INH Albuterol Sulfate 3 ML BID 02/28 2200 DCD 03/05 INH 0917 Enoxaparin Sodium 40 MG DAILY 02/26 1000 DCD 03/05 SC 0856 Guaifenesin 600 MG Q12 02/26 1000 DCD 03/05 PO 0856 Lorazepam 0.5 MG Q8P PRN 03/04 1245 DCD PO 03/11 1244 Morphine Sulfate 1 MG Q4P PRN 02/26 06 DC IV Multivitamins 1 TAB DAILY 02/28 1105 DCD 03/05 PO 0856 Omeprazole 40 MG DAILY AC 03/03 0900 DCD 03/05 PO 0533 Prednisone 10 MG DAILY 03/08 1000 DCD PO 03/13 0959 Prednisone 15 MG DAILY 03/03 1000 DCD 03/05 PO 03/08 0959 0856 Assessment/Plan Assessment: Patient is a 76-year-old lady with PMH of dementia, end stage ILD, RA on prednisone, and sarcoidosis, who is BIBA to the ED due to worsening cough and fever. Assessment * Healthcare associated pneumonia leading to acute adrenal insufficiency * End stage ILD * Hypokalemia - recovered * 3-4 pustules at sacral region * Anxiety * Rheumatoid arthritis * Home hospice care Plan: Family decided to go for home hospice care, and we discharge her today We'll continue 1 liter of oxygen, especially night time. We advised to continue Omeprazole Advised to continue tablet prednisone 10 milligrams once a day Advise to keep sacral wounds dry, TRC/nebulization we started patient on the liquid Ativan 0.5mg Q8P, liquid morphine 1 milligram Q1P Diet -regular diet CODE STATUS-comfort care Problem List: 1. Anemia 2. Hypokalemia 3. CHF (congestive heart failure) 4. Interstitial lung disease 5. Pneumonia 6. Rheumatoid arthritis Pain Ratin Pain Location: Joints Pain Goal: Remain pain free Pain Plan: morphine Tomorrow's Labs & Rationales: not required as patient is discharged DVT/Prophylaxis: mechanical, pharmacological
[2017-03-05] MEDS ORDERED: PREDNISONE10 M2 PO (05:53)
[2017-03-05] MEDS ORDERED: MORPHINE SULFAT15 M4 PO (08:46)
[2017-03-05] MEDS ORDERED: ATIVAN0.5 M1 PO (08:46)
[2017-03-05 08:55] VITALS: BP 120/62
--- NOTE | 2017-03-05 10:36 | PN- Att Addend ---
Attending Addendum Attending Brief Note Patient seen and examined. Plan of care discussed with the medical team and the patient. Available lab work and radiology test reports were reviewed. Patient currently on oxygen and she appears comfortable. She is awake and alert follows command. She is looking forward to go home today Vital Signs Date Time Temp Pulse Resp B/P B/P Pulse O2 O2 Flow FiO2 Mean Ox Delivery Rate 03/05 0924 98 Nasal 1.0L Cannula 03/05 0855 98.1 67 20 120/62 94 Nasal 1.0L Cannula 03/05 0800 92 Nasal 1.0L Cannula 03/04 2355 98.3 73 20 124/54 90 Room Air 03/04 1943 97 Nasal 1.0L Cannula 03/04 1600 Nasal 1.0L Cannula 03/04 1600 98.3 76 20 110/70 96 Nasal 1.0L Cannula Intake & Output 03/05 1600 03/05 0800 03/05 0000 Intake Total 100 Output Total Balance 100 Intake, Oral 100 xam: General: Patient awake alert oriented without any distress CVS: S1 plus S2 without any murmur or gallops Chest: Bilateral crepitations without any wheeze. There is no respiratory distress. 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 Assessment * Multilobar pneumonia suspected gram-negative etiology- patient currently off antibiotics * History of interstitial lung disease- the end-stage, patient has been assessed by hospice * Acute respiratory failure and hypoxia * Mild hypokalemia Plan * Patient will be going home with oxygen; she will start home hospice * Plan for discharge home today * Continue low-dose morphine and Ativan for patient comfort Total time spent in preparation for discharge plan, patient education, and CMR preparation was 35 minutes.
[2017-03-05] MEDS ORDERED: MORPHINE S10 MG/5 M2 PO (11:24)
[2017-03-05] MEDS ORDERED: ATIVAN2 MG/1 ML IM (11:24)
--- NOTE | 2017-03-05 12:33 | PN- Cardiology ---
Subjective Subjective: Feels as though her breathing has improved. Objective Vital Signs and I&Os Vital Signs Date Time Temp Pulse Resp B/P B/P Pulse O2 O2 Flow FiO2 Mean Ox Delivery Rate 03/05 0924 98 Nasal 1.0L Cannula 03/05 0855 98.1 67 20 120/62 94 Nasal 1.0L Cannula 03/05 0800 92 Nasal 1.0L Cannula 03/04 2355 98.3 73 20 124/54 90 Room Air 03/04 1943 97 Nasal 1.0L Cannula 03/04 1600 Nasal 1.0L Cannula 03/04 1600 98.3 76 20 110/70 96 Nasal 1.0L Cannula Intake & Output 03/05 1600 03/05 0800 03/05 0000 03/04 1600 03/04 0800 03/04 0000 Intake Total 100 400 290 Output Total Balance 100 400 290 Intake, Oral 100 400 290 Number 1 1 Bowel Movements Physical Exam: Chronically ill-appearing elderly female in no acute distress with nasal oxygen in place. Vital signs: See above. Lungs: Bilateral crackles and occasional rhonchi right greater than left Heart: S1, S2 with grade 2/6 systolic ejection murmur. Abdomen: Soft, nontender, positive bowel sounds. Extremities: No edema. Current Medications: Current Medications Sig/Vanessa Start time Last Medication Dose Route Stop Time Status Admin Acetaminophen 650 MG Q6P PRN 02/26 06 AC PO Acetaminophen/ 1 TAB Q6P PRN 02/26 600 DC Hydrocodone Bitart PO Albuterol Sulfate 3 ML BID PRN 03/05 0900 CAN INH Albuterol Sulfate 3 ML BID 02/28 2200 AC 03/05 INH 0917 Enoxaparin Sodium 40 MG DAILY 02/26 1000 AC 03/05 SC 0856 Guaifenesin 600 MG Q12 02/26 1000 AC 03/05 PO 0856 Lorazepam 0.5 MG Q8P PRN 03/04 1245 AC PO 03/11 1244 Morphine Sulfate 1 MG Q4P PRN 02/26 06 DC IV Multivitamins 1 TAB DAILY 02/28 1105 AC 03/05 PO 0856 Omeprazole 40 MG DAILY AC 03/03 0900 AC 03/05 PO 0533 Prednisone 10 MG DAILY 03/08 1000 AC PO 03/13 0959 Prednisone 15 MG DAILY 03/03 1000 AC 03/05 PO 03/08 0959 0856 Assessment/Plan Assessment/Plan [id number] w/ hx HTN, s/p hysterectomy, sarcoidosis, ILD, achalasia, RA, a vague history of MA at 32 years, and dementia who was recently hospitalized here (-02/03/2017) with progressive shortness of breath, ultimately felt to be on a multifactorial basis (progressive ILD, HFpEF, etc.) and who was readmitted () with productive cough, shortness of breath, fever, etc. felt to be secondary to multilobar pneumonia. Appears stable from a cardiac standpoint. Continue present regimen. Continue to follow-up on pulmonary recommendations regarding oxygen, antimicrobial therapy, steroids, TRC, etc. Continue telemetry? Not applicable Continue to follow-up on pulmonary recommendations regarding oxygen, antimicrobial therapy, steroids, TRC, etc.
--- NOTE | 2017-03-05 12:37 | PN- Cardiology ---
Subjective Subjective: No complaints. Preparing for discharge to home hospice. Objective Vital Signs and I&Os Vital Signs Date Time Temp Pulse Resp B/P B/P Pulse O2 O2 Flow FiO2 Mean Ox Delivery Rate 03/05 0924 98 Nasal 1.0L Cannula 03/05 0855 98.1 67 20 120/62 94 Nasal 1.0L Cannula 03/05 0800 92 Nasal 1.0L Cannula 03/04 2355 98.3 73 20 124/54 90 Room Air 03/04 1943 97 Nasal 1.0L Cannula 03/04 1600 Nasal 1.0L Cannula 03/04 1600 98.3 76 20 110/70 96 Nasal 1.0L Cannula Intake & Output 03/05 1600 03/05 0800 03/05 0000 03/04 1600 03/04 0800 03/04 0000 Intake Total 100 400 290 Output Total Balance 100 400 290 Intake, Oral 100 400 290 Number 1 1 Bowel Movements Physical Exam: Chronically ill-appearing elderly female in no acute distress with nasal oxygen in place. Vital signs: See above. Lungs: Bilateral crackles and occasional rhonchi right greater than left Heart: S1, S2 with grade 2/6 systolic ejection murmur. Abdomen: Soft, nontender, positive bowel sounds. Extremities: No edema. Current Medications: Current Medications Sig/Vanessa Start time Last Medication Dose Route Stop Time Status Admin Acetaminophen 650 MG Q6P PRN 02/26 06 AC PO Acetaminophen/ 1 TAB Q6P PRN 02/26 600 DC Hydrocodone Bitart PO Albuterol Sulfate 3 ML BID PRN 03/05 0900 CAN INH Albuterol Sulfate 3 ML BID 02/28 2200 AC 03/05 INH 0917 Enoxaparin Sodium 40 MG DAILY 02/26 1000 AC 03/05 SC 0856 Guaifenesin 600 MG Q12 02/26 1000 AC 03/05 PO 0856 Lorazepam 0.5 MG Q8P PRN 03/04 1245 AC PO 03/11 1244 Morphine Sulfate 1 MG Q4P PRN 02/26 06 DC IV Multivitamins 1 TAB DAILY 02/28 1105 AC 03/05 PO 0856 Omeprazole 40 MG DAILY AC 03/03 0900 AC 03/05 PO 0533 Prednisone 10 MG DAILY 03/08 1000 AC PO 03/13 0959 Prednisone 15 MG DAILY 03/03 1000 AC 03/05 PO 03/08 0959 0856 Assessment/Plan Assessment/Plan [id number] w/ hx HTN, s/p hysterectomy, sarcoidosis, ILD, achalasia, RA, a vague history of MT at 32 years, and dementia who was recently hospitalized here (-02/03/2017) with progressive shortness of breath, ultimately felt to be on a multifactorial basis (progressive ILD, HFpEF, etc.) and who was readmitted () with productive cough, shortness of breath, fever, etc. felt to be secondary to multilobar pneumonia. Appears stable from a cardiac standpoint. Continue present regimen. Continue to follow-up on pulmonary recommendations regarding oxygen, antimicrobial therapy, steroids, TRC, etc.
== END 2017-03-05 12:30 | disposition home or self-care (01) | DRG 871 ==
LOC: DELPENDDIS → ERH 02:24 → ERHI 04:33 → 1NO 04:33 → ENRESERV 09:42 → ENTRNSPT 13:59 → CMPTRNSPT 14:29 → 1NO 14:36 → CMPTRNSPT 14:52 → 1NO 02-28 09:16 → ENPENDDIS 03-02 10:06 → 1NO 03-02 11:07 → ENPENDDIS 03-05 08:09 → 1NO 03-05 12:30
PROVIDERS: Emergency Medicine; Internal Medicine Adolescent Medicine; Student in an Organized Health Care Education/Training Program; ADMIT Internal Medicine
DX: A41.50 Gram-negative sepsis, unspecified (principal); J15.6 Pneumonia due to other Gram-negative bacteria; J96.21 Acute and chronic respiratory failure with hypoxia; J69.0 Pneumonitis due to inhalation of food and vomit; J84.9 Interstitial pulmonary disease, unspecified; E87.3 Alkalosis; K22.0 Achalasia of cardia; I27.2 Other secondary pulmonary hypertension; I50.32 Chronic diastolic (congestive) heart failure; E27.40 Unspecified adrenocortical insufficiency; I11.0 Hypertensive heart disease with heart failure; F03.90 Unspecified dementia, unspecified severity, without behavioral disturbance, psychotic disturbance, mood disturbance, and anxiety; R65.20 Severe sepsis without septic shock; E87.6 Hypokalemia; M06.9 Rheumatoid arthritis, unspecified; Z79.52 Long term (current) use of systemic steroids; D86.9 Sarcoidosis, unspecified; Y95 Nosocomial condition; K21.9 Gastro-esophageal reflux disease without esophagitis; Z66 Do not resuscitate; I25.2 Old myocardial infarction; R15.9 Full incontinence of feces; R19.7 Diarrhea, unspecified; R01.1 Cardiac murmur, unspecified; R21 Rash and other nonspecific skin eruption; D53.9 Nutritional anemia, unspecified; R32 Unspecified urinary incontinence; I44.0 Atrioventricular block, first degree; Z51.5 Encounter for palliative care; F41.9 Anxiety disorder, unspecified; I35.0 Nonrheumatic aortic (valve) stenosis; D75.89 Other specified diseases of blood and blood-forming organs
CPT/HCPCS: 1NSP; 36415; 81001; 82436; 87040; 87086; 93005; 93010; 96360; 96361; 99291; J0713; J1650; J1720; J2930; J3370; J7040; J7512